=== PATIENT | male | born 1940 | race African-American/Black ===

== ENCOUNTER 2016-03-07 17:03 | Emergency (ER) | payer BC, OTHER ==
[2016-03-07 17:11] VITALS: BP 151/78; PULSE 68; TEMP 98.2; BMI 27.5
[2016-03-07] MEDS ORDERED: KETOROLAC TROMETHAMINE 60 MG/2 ML VIAL ONE (17:46)
[2016-03-07] MEDS ORDERED: KETOROLAC TROMETHAMINE 60 MG/2 ML VIAL IM ONE (17:57)
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
== END 2016-03-07 18:36 | disposition home or self-care (01) ==
LOC: JERFT 17:03
PROC: 3E0233Z Introduction of Anti-inflammatory into Muscle, Percutaneous Approach (ICD-10-PCS; principal; 2016-03-07)
DX: R68.84 Jaw pain (principal); R12 Heartburn; I10 Essential (primary) hypertension; I25.2 Old myocardial infarction; Z87.891 Personal history of nicotine dependence; Z79.82 Long term (current) use of aspirin; Z79.4 Long term (current) use of insulin
CPT/HCPCS: 99281-25

== ENCOUNTER 2016-09-26 00:32 | Emergency (ER) | payer BC, OTHER ==
[2016-09-26 00:46] VITALS: BP 165/90; PULSE 65; TEMP 98.2; BMI 26.4
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
[2016-09-26 03:28] LABS: BASOPHIL 0.8 % (0-2.0); EOSINOPHIL 3.9 % (0-4.5); MCH 29.1 pg (25.7-33.7); MCHC 33.3 g/dl (32.0-35.9); MEAN CELL VOLUME 87.5 fl (80-96); MEAN PLT VOLUME 9.2 fl (7.5-11.1); NEUTROPHILS 43.2 % (42.8-82.8); PLATELET COUNT 187 K/MM3 (134-434); RDW 13.1 % (11.9-15.9); WHITE BLOOD COUNT 6.2 K/mm3 (4.0-10.0)
--- NOTE | 2016-09-26 04:01 | PDOC ---
Attending Attestation - Resident Resident Name: Carlos Mcgraw - ED Attending Attestation I have performed the following: I have examined & evaluated the patient, The case was reviewed & discussed with the resident, I agree w/resident's findings & plan, Exceptions are as noted - Physicial Exam PE: 09/26/16 04:00 *Physical Exam General Appearance: Yes: Appropriately Dressed. No: Apparent Distress, Intoxicated HEENT: positive: EOMI, RACHEL, Normal ENT Inspection, Normal Voice, TMs Normal, Pharynx Normal. negative: Pale Conjunctivae, Photophobia, Scleral Icterus (R), Scleral Icterus (L) Neck: positive: Trachea midline, Normal Thyroid, Supple. negative: Tender, Rigid, Carotid bruit, Stridor, Lymphadenopathy (R), Lymphadenopathy (L), Thyromegaly Respiratory/Chest: positive: Lungs Clear, Normal Breath Sounds. negative: Chest Tender, Respiratory Distress, Accessory Muscle Use, Labored Respiration, RES, Crackles, Rales, Rhonchi, Stridor, Wheezing, Dullness Cardiovascular: positive: Regular Rhythm, Regular Rate, S1, S2. negative: Edema , JVD, Murmur, Bradycardia, Tachycardia Vascular Pulses: Dorsalis-Pedis (R): 2+, Doralis-Pedis (L): 2+ Gastrointestinal/Abdominal: positive: Normal Bowel Sounds, Flat, Soft. negative : Tender, Organomegaly, Pulsatile Mass, Increased Bowel Sounds, Decreased BS, Distended, Guarding, Rebound, Hernia, Hepatomegaly, Spleenomegaly Lymphatic: negative: Adenopathy, Tenderness Musculoskeletal: positive: Normal Inspection. negative: CVA Tenderness, Decreased Range of Motion Extremity: positive: Normal Capillary Refill, Normal Inspection, Normal Range of Motion, Pelvis Stable. negative: Tender, Pedal Edema, Swelling, Erythema Integumentary: positive: Normal Color, Dry, Warm. 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 negative: EOM Palsy, Facial Droop, Sensory Deficit <Attila Saucedo - Last Filed: 09/26/16 04:00> - HPI HPI: The patient is a 75 yo M with a past medical history significant for HTN and GERD who presents with paroxysmal abdominal pain for 4 days. The patient describes the pain as a nonradiating cramping sensation that lasts for a minute or two. The patient also endorses associated abdominal distension. He notes he hasnt been able to pass gas rectally. The patient denies fevers, chills and cough. He denies chest pain, sob, palpitations and lightheadedness. He denies nausea, vomiting and diarrhea. - Medical Decision Making Documentation prepared by Mellissa Hollins, acting as medical transcription supervisor for Attila Saucedo MD/. <Mellissa Hollins - Last Filed: 09/26/16 04:01>
[2016-09-26 04:27] LABS: URINE APPEARANCE CLEAR; URINE BILIRUBIN NEGATIVE (NEGATIVE); URINE BLOOD NEGATIVE (NEGATIVE); URINE COLOR STRAW; URINE GLUCOSE (UA) 3+ (NEGATIVE); URINE KETONE NEGATIVE (NEGATIVE); URINE LEUK ESTERASE NEGATIVE (NEGATIVE); URINE NITRITE NEGATIVE (NEGATIVE); URINE PROTEIN NEGATIVE (NEGATIVE); URINE UROBILINOGEN NEGATIVE mg/dL (0.2-1.0)
[2016-09-26] MEDS ORDERED: POLYETHYLENE GLYCOL 3350 119 GM BTL PO SCH (10:00)
== END 2016-09-26 05:43 | disposition home or self-care (01) ==
LOC: JER 00:32
DX: K59.04 Chronic idiopathic constipation (principal); E11.9 Type 2 diabetes mellitus without complications; K21.9 Gastro-esophageal reflux disease without esophagitis; I10 Essential (primary) hypertension; Z79.82 Long term (current) use of aspirin; Z79.4 Long term (current) use of insulin; Z86.74 Personal history of sudden cardiac arrest; Z98.1 Arthrodesis status
CPT/HCPCS: 36415; 74020-TC; 81003; 85025; 99282-25

== ENCOUNTER 2017-02-07 00:20 | Inpatient (IN) | payer BC, OTHER ==
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
[2017-02-07 01:17] VITALS: BMI 26.4
[2017-02-07] MEDS ORDERED: ALBUTEROL SO4 2.5/IPRATROPIUM 0.5 INH SOL 3 ML VIAL.NEB. NEB ONE ×2 (01:17→01:23)
--- NOTE | 2017-02-07 01:49 | PDOC ---
*Physical Exam - Vital Signs Last Vital Signs Temp Pulse Resp BP Pulse Ox 98.2 F 65 19 160/11 98 02/07/17 00:56 02/07/17 01:40 02/07/17 00:56 02/07/17 00:56 02/07/17 01:40 ED Treatment Course - LABORATORY CBC & Chemistry Diagram: 02/07/17 01:35 02/07/17 01:35 - Medications Given in the ED: ED Medications Discontinued Medications Generic Name Dose Route Start Last Admin Trade Name Freq PRN Reason Stop Dose Admin Albuterol/Ipratropium 1 amp 02/07/17 01:17 02/07/17 01:41 Duoneb - NEB 02/07/17 01:18 1 amp ONCE ONE Administration Medical Decision Making - Medical Decision Making 02/07/17 01:48 I reviewed the case of the mid-level practitioner and was available for consultation while in the emergency department. Dr. Andrea to follow up remainder of care *DC/Admit/Observation/Transfer Diagnosis at time of Disposition: Shortness of breath - Referrals Referrals: Doron Clinton MD [Primary Care Provider] - - Patient Instructions - Post Discharge Activity
[2017-02-07 01:51] LABS: BASO % 0.6 % (0-2.0); EOS # 0.3 # (0-4.5); LYMPH # 1.8 (8-40); MCH 28.3 pg (25.7-33.7); MCHC 32.6 g/dl (32.0-35.9); MEAN PLT VOLUME 8.9 fl (7.5-11.1); MONO # 0.6 # (3.8-10.2); NEUT # 2.6 # (42.8-82.8); NEUT % 48.9 % (42.8-82.8); PLATELET COUNT 222 K/MM3 (134-434); RDW 14.1 % (11.9-15.9); WHITE BLOOD COUNT 5.2 K/mm3 (4.0-10.0)
[2017-02-07 02:26] LABS: ANION GAP 6 (8-16); BILIRUBIN,TOTAL 0.3 mg/dL (0.2-1.0); CALCIUM 8.8 mg/dL (8.5-10.1); CO2 29 mmol/L (21-32); CREATININE 1.8 mg/dL (0.7-1.3); SGOT/AST 22 U/L (15-37); SGPT/ALT 43 U/L (12-78); TOT PROT 6.4 g/dl (6.4-8.2)
[2017-02-07 02:28] LABS: ALK PHOS 104 U/L (45-117)
[2017-02-07 02:29] LABS: GLUCOSE,RANDOM 308 mg/dL (74-106)
[2017-02-07 02:48] LABS: HIV 1 & 2 AB NEGATIVE; HIV 1 AGp24 NEGATIVE; TROPONIN I 0.06 ng/ml (0.00-0.05)
[2017-02-07] MEDS ORDERED: ASPIRIN 325 MG TABLET PO ONE (03:11)
[2017-02-07] MEDS ORDERED: ASPIRIN 325 MG TABLET ONE (03:20)
--- NOTE | 2017-02-07 05:40 | HP ---
CHIEF COMPLAINT: SOB PCP: Dr. Clinton HISTORY OF PRESENT ILLNESS: This is a 76 y/o man with a past medical history of HTN, DM. Who presents to the ED with SOB, decreased exercise tolerance, cough x several days. Patient denies CP, palpitations, lightheadedness, or dizziness. Patient denies fever, chills, GODFREY, N/V/D, dysuria. ER course was notable for: (1) Troponin I- 0.06 (2) EKG- SR with frequent PVCs, RBBB, LVH, T wave abnormality, consider lateral ischemia (3) BNP 1054 Recent Travel: None PAST MEDICAL HISTORY: HTN DM PAST SURGICAL HISTORY: Social History: Smoking: Never Alcohol: None Drugs: None Retired, [employer] Family History: Mother: Cardiac: CM, DM, age 70's Sister: Cardiac: CM, age 50's Allergies No Known Allergies Allergy (Verified 09/26/16 00:45) HOME MEDICATIONS: Home Medications Medication Instructions Recorded Insulin (Novolog 70/30) [Novolog 20 units SQ DAILY 01/17/15 Mix 70/30 Vial] Losartan Potassium 100 mg PO DAILY 10/24/15 Atorvastatin Ca [Lipitor] 10 mg PO HS 02/07/17 Insulin Glargine,Hum.rec.anlog 40 unit SQ HS 02/07/17 [Lantus] REVIEW OF SYSTEMS CONSTITUTIONAL: Absent: fever, chills, diaphoresis, generalized weakness, malaise, loss of appetite, weight change HEENT: Absent: rhinorrhea, nasal congestion, throat pain, throat swelling, difficulty swallowing, mouth swelling, ear pain, eye pain, visual changes CARDIOVASCULAR: Absent: chest pain, syncope, palpitations, irregular heart rate, lightheadedness , peripheral edema RESPIRATORY: cough, shortness of breath, dyspnea with exertion Absent: orthopnea, wheezing, stridor, hemoptysis GASTROINTESTINAL: constipation Absent: abdominal pain, abdominal distension, nausea, vomiting, diarrhea, melena , hematochezia GENITOURINARY: Absent: dysuria, frequency, urgency, hesitancy, hematuria, flank pain, genital pain MUSCULOSKELETAL: Absent: myalgia, arthralgia, joint swelling, back pain, neck pain SKIN: Absent: rash, itching, pallor HEMATOLOGIC/IMMUNOLOGIC: Absent: easy bleeding, easy bruising, lymphadenopathy, frequent infections ENDOCRINE: Absent: unexplained weight gain, unexplained weight loss, heat intolerance, cold intolerance NEUROLOGIC: Absent: headache, focal weakness or paresthesias, dizziness, unsteady gait, seizure, mental status changes, bladder or bowel incontinence PSYCHIATRIC: Absent: anxiety, depression, suicidal or homicidal ideation, hallucinations. PHYSICAL EXAMINATION Vital Signs - 24 hr 02/07/17 02/07/17 00:56 01:40 Temperature 98.2 F Pulse Rate 90 65 Respiratory 19 Rate Blood Pressure 160/11 O2 Sat by Pulse 98 98 Oximetry (%) GENERAL: Awake, alert, and fully oriented, in no acute distress. HEAD: Normal with no signs of trauma. EYES: Pupils equal, round and reactive to light, extraocular movements intact, sclera anicteric, conjunctiva clear. No lid lag. EARS, NOSE, THROAT: Ears normal, nares patent, oropharynx clear without exudates. Dry mucous membranes. NECK: Normal range of motion, supple without lymphadenopathy, JVD, or masses. LUNGS: Breath sounds diminished at bases. No wheezes, and no crackles. No accessory muscle use. HEART: Irregular rate and rhythm, normal S1 and S2 without murmur, rub or gallop. ABDOMEN: Soft, nontender, not distended, normoactive bowel sounds, no guarding, no rebound, no masses. No hepatomegaly or splenomegaly. MUSCULOSKELETAL: Normal range of motion at all joints. No bony deformities or tenderness. No CVA tenderness. UPPER EXTREMITIES: 2+ pulses, warm, well-perfused. No cyanosis. No clubbing. No peripheral edema. LOWER EXTREMITIES: 2+ pulses, warm, well-perfused. No calf tenderness. No peripheral edema. NEUROLOGICAL: Cranial nerves II-XII intact. Normal speech. Gait not observed. PSYCHIATRIC: Cooperative. Good eye contact. Appropriate mood and affect. SKIN: Warm, dry, normal turgor, no rashes or lesions noted, normal capillary refill. Laboratory Results - last 24 hr 02/07/17 02/07/17 02/07/17 01:35 01:35 01:35 WBC 5.2 RBC 4.81 Hgb 13.6 D Hct 41.8 MCV 87.0 MCH 28.3 MCHC 32.6 RDW 14.1 Plt Count 222 MPV 8.9 Neutrophils % 48.9 Lymphocytes % 34.8 Monocytes % 10.7 H Eosinophils % 5.0 H Basophils % 0.6 Sodium 142 Potassium 4.7 Chloride 107 Carbon Dioxide 29 Anion Gap 6 L BUN 23 H Creatinine 1.8 H D Creat Clearance w eGFR 36.77 Random Glucose 308 H* D Calcium 8.8 Total Bilirubin 0.3 D AST 22 ALT 43 D Alkaline Phosphatase 104 Creatine Kinase 485 H Creatine Kinase Index 1.1 CK-MB (CK-2) 5.470 H Troponin I 0.06 H D B-Natriuretic Peptide 1054.96 H Total Protein 6.4 Albumin 3.0 L HIV 1&2 Antibody Screen HIV P24 Antigen 02/07/17 01:35 WBC RBC Hgb Hct MCV MCH MCHC RDW Plt Count MPV Neutrophils % Lymphocytes % Monocytes % Eosinophils % Basophils % Sodium Potassium Chloride Carbon Dioxide Anion Gap BUN Creatinine Creat Clearance w eGFR Random Glucose Calcium Total Bilirubin AST ALT Alkaline Phosphatase Creatine Kinase Creatine Kinase Index CK-MB (CK-2) Troponin I B-Natriuretic Peptide Total Protein Albumin HIV 1&2 Antibody Screen Negative HIV P24 Antigen Negative ASSESSMENT/PLAN: This is a 76 y/o man with a PMHx of: HTN, ?Cardiac Arrest/Syncope(age 22), DM, BPH. Placed in Tele Observation for SOB, Cardiac Arrhythmia. Problem List - Problem (1) Shortness of breath Assessment/Plan: -Concerning for Heart Failure vs Arrhythmia vs PE - Continue cardiac monitoring - Chest Xray- Large heart, unfolded aorta, pleural fluid, Degenerative changes with wedging - BNP- 1054 - O2 - Appreciate Cardiology Consult - Lasix - Monitor CBCD, BMP Code(s): R06.02 - SHORTNESS OF BREATH (2) Elevated troponin Assessment/Plan: - r/o ACS vs Demand Ischemia - Serial Enzymes - Consult Cardiology - EKG reviewed - Continue cardiac monitoring Code(s): R74.8 - ABNORMAL LEVELS OF OTHER SERUM ENZYMES (3) Ventricular trigeminy Assessment/Plan: - Likely secondary to CAD - Cardiac monitoring - EKG- reviewed no other tracing to compare - Appreciate Cardiology Consult - Echo - Stress test - Asa given in ED, will continue - Bedrest - Lipid Profile Code(s): I49.8 - OTHER SPECIFIED CARDIAC ARRHYTHMIAS (4) Uncontrolled diabetes mellitus with hyperglycemia Assessment/Plan: - BGMs - ISS - Hold home meds for tighter glycemic control - HgbA1C in am - Consider Endocrinology consult or f/u in outpatient - Monitor renal function Code(s): E11.65 - TYPE 2 DIABETES MELLITUS WITH HYPERGLYCEMIA Qualifiers: Diabetes mellitus type: type 2 (5) Hypertension Assessment/Plan: - Not Controlled - Losartan given in ED, will hold for now secondary to SYLVIA - Would consider BB for BP control, but in light of Trigeminy will defer to Cardiology - Cardiac monitoring - Monitor renal function Code(s): I10 - ESSENTIAL (PRIMARY) HYPERTENSION (6) BPH (benign prostatic hyperplasia) Assessment/Plan: - No current med - Consider Flomax Code(s): N40.0 - BENIGN PROSTATIC HYPERPLASIA WITHOUT LOWER URINRY TRACT SYMP (7) DVT prophylaxis Assessment/Plan: - OOB - SCDs - Consider ACs if LOS> 48 hrs Code(s): HUP6091 - Visit type - Emergency Visit Emergency Visit: Yes ED Registration Date: 02/07/17 Care time: The patient presented to the Emergency Department on the above date and was hospitalized for further evaluation of their emergent condition. - New Patient This patient is new to me today: Yes Date on this admission: 02/07/17 - Critical Care Critical Care patient: No
[2017-02-07 05:56] LABS: TROPONIN I 0.06 ng/ml (0.00-0.05)
[2017-02-07] MEDS ORDERED: LOSARTAN POTASSIUM 50 MG TABLET (FP) PO ONE (06:23)
[2017-02-07] MEDS ORDERED: LOSARTAN POTASSIUM 25 MG TABLET PO ONE (06:30)
[2017-02-07] MEDS ORDERED: ASPIRIN 81 MG CHEWABLE TABLETS ONE (06:30)
[2017-02-07] MEDS ORDERED: ATORVASTATIN CA 40 MG TABLET (FP) ONE (06:32)
[2017-02-07] MEDS ORDERED: LOSARTAN POTASSIUM 25 MG TABLET ONE (06:32)
[2017-02-07] MEDS ORDERED: INSULIN (NOVOLOG MIX 70/30) 100 UNITS/ML MDV SQ ONE (06:33)
[2017-02-07] MEDS: INSULIN SLIDING SCALE (NOVOLOG) 1 VIAL SQ SCH ×4 (06:47→21:23)
[2017-02-07 07:02] LABS: CHOLESTEROL 96 mg/dL (50-200)
[2017-02-07 10:11] LABS: BASO % 0.6 % (0-2.0); EOS # 0.3 # (0-4.5); EOS % 5.9 % (0-4.5); LYMPH # 1.9 (8-40); MCH 27.9 pg (25.7-33.7); MCHC 31.8 g/dl (32.0-35.9); MEAN CELL VOLUME 87.8 fl (80-96); MEAN PLT VOLUME 9.3 fl (7.5-11.1); MONO # 0.5 # (3.8-10.2); NEUT # 2.2 # (42.8-82.8); NEUT % 44.4 % (42.8-82.8); PLATELET COUNT 203 K/MM3 (134-434); RDW 14.1 % (11.9-15.9)
[2017-02-07 10:34] LABS: ALBUMIN 2.9 g/dl (3.4-5.0); ANION GAP 7 (8-16); BILIRUBIN,TOTAL 0.5 mg/dL (0.2-1.0); CALCIUM 8.1 mg/dL (8.5-10.1); CO2 26 mmol/L (21-32); CREATININE 1.4 mg/dL (0.7-1.3); GLUCOSE,RANDOM 227 mg/dL (74-106); MAGNESIUM 2.1 mg/dL (1.8-2.4); PHOSPHOROUS 3.3 mg/dL (2.5-4.9); SGOT/AST 21 U/L (15-37); SGPT/ALT 40 U/L (12-78)
[2017-02-07 10:38] LABS: ALK PHOS 103 U/L (45-117); CPK 387 IU/L (39-308); TOT PROT 6.1 g/dl (6.4-8.2); TROPONIN I 0.06 ng/ml (0.00-0.05)
[2017-02-07] MEDS ORDERED: INSULIN (NOVOLOG) ASPART 100 UNITS/ML 10ML VIAL ONE (11:20)
[2017-02-07] MEDS ORDERED: INSULIN NPH 100 UNITS/ML *VIAL ONE (11:20)
--- NOTE | 2017-02-07 14:56 | CON.CARD ---
Consult Consult Specialty:: cardiology Reason for Consultation:: shortness of breath - History of Present Illness History of Present Illness: Patient is a 76-year-old black male with past medical history of diabetes, hypertension, cardiac arrest at age 22, low-normal LVEF (2011 MUGA), s/p 10/02 trigeminal neuralgia surgery, tates that he is usually able to walk to his vehicle approximately a block and a half away. Currently he states that he is unable to do so stating that he gets winded approximately a block in his walk. While at rest patient states that he breathes normally and does not feel short of breath. Denies orthopnea, pedal edema, palpitations, lightheadedness, dizziness, weakness, chest pain. He has not tried taking any medication for his symptoms. PCP Dr. Clinton Milk Powder Grinder: None - History Source History Provided By: Patient, Medical Record Limitations to Obtaining History: No Limitations - Past Medical History Cardio/Vascular: Yes: HTN Pulmonary: No: Asthma, COPD Renal/: Yes: BPH Endocrine: Yes: Diabetes Mellitus - Past Surgical History Past Surgical History: Yes: Laminectomy - Alcohol/Substance Use Hx Alcohol Use: No - Smoking History Smoking history: Never smoked Have you smoked in the past 12 months: No Aproximately how many cigarettes per day: 0 If you are a former smoker, when did you quit?: 1963 Home Medications - Allergies Allergies/Adverse Reactions: Allergies Allergy/AdvReac Type Severity Reaction Status Date / Time No Known Allergies Allergy Verified 09/26/16 00:45 - Home Medications Home Medications: Ambulatory Orders Insulin (Novolog 70/30) [Novolog Mix 70/30 Vial] 20 units SQ DAILY 01/17/15 Losartan Potassium 100 mg PO DAILY 10/24/15 Atorvastatin Ca [Lipitor] 10 mg PO HS 02/07/17 Insulin Glargine,Hum.rec.anlog [Lantus] 40 unit SQ HS 02/07/17 Family Disease History - Family Disease History Family Disease History: Diabetes: Father, Heart Disease: Mother, Sister, CA: Brother Review of Systems - Review of Systems Constitutional: reports: No Symptoms Eyes: reports: No Symptoms HENT: reports: No Symptoms Neck: reports: No Symptoms Cardiovascular: reports: No Symptoms Respiratory: reports: SOB on Exertion Gastrointestinal: reports: No Symptoms Genitourinary: reports: No Symptoms Breasts: reports: No Symptoms Reported Musculoskeletal: reports: Muscle Weakness Neurological: reports: No Symptoms Endocrine: reports: No Symptoms Hematology/Lymphatic: reports: No Symptoms Psychiatric: reports: No Symptoms - Risk Factors Known Risk Factors: Yes: Age, Diabetes Mellitus, Gender, Hypercholesterolemia, Race. No: Smoking Vital Signs: Vital Signs Temperature 98.3 F 02/07/17 13:47 Pulse Rate 82 02/07/17 13:47 Respiratory Rate 20 02/07/17 13:47 Blood Pressure 160/80 02/07/17 13:47 O2 Sat by Pulse Oximetry (%) 98 02/07/17 13:47 Constitutional: Yes: Anxious Eyes: Yes: WNL HENT: Yes: WNL Neck: Yes: WNL Respiratory: Yes: Diminished Gastrointestinal: Yes: Soft Renal/: No: Anuria Heart Sounds: Yes: S1, Split S2 Murmur: Yes: Systolic Murmur, Grade 2 Musculoskeletal: Yes: Muscle Weakness Extremities: Yes: WNL Edema: No Peripheral Pulses WNL: Yes Integumentary: Yes: WNL Neurological: Yes: WNL Psychiatric: Yes: WNL - Other Data Labs, Other Data: CBC, BMP 02/07/17 10:00 02/07/17 10:00 Troponin, BNP 02/07/17 02/07/17 02/07/17 01:35 01:35 05:13 Troponin I 0.06 H D 0.06 H B-Natriuretic Peptide 1054.96 H 02/07/17 10:00 Troponin I 0.06 H B-Natriuretic Peptide Troponin, BNP 02/07/17 02/07/17 02/07/17 01:35 01:35 05:13 Troponin I 0.06 H D 0.06 H B-Natriuretic Peptide 1054.96 H 02/07/17 10:00 Troponin I 0.06 H B-Natriuretic Peptide Echo: Report Reviewed (2012: normal LVEF) Imaging - Results Chest X-ray: Image Reviewed (pleural effusion) EKG: Image Reviewed (NSR; bifascicular heart block (RBBB; LAFB).) Problem List - Problems (1) Shortness of breath Assessment/Plan: serial TNI (initially 0.05). BUN/Cr, electrolytes, Is and Os, daily weight. F/u ECHO for LVEF, valve status, wall motion. Telemetry. Stress MIBI when stablle. Code(s): R06.02 - SHORTNESS OF BREATH (2) Uncontrolled diabetes mellitus with hyperglycemia Code(s): E11.65 - TYPE 2 DIABETES MELLITUS WITH HYPERGLYCEMIA Qualifiers: Diabetes mellitus type: type 2 (3) Ventricular trigeminy Code(s): I49.8 - OTHER SPECIFIED CARDIAC ARRHYTHMIAS (4) BPH (benign prostatic hyperplasia) Code(s): N40.0 - BENIGN PROSTATIC HYPERPLASIA WITHOUT LOWER URINRY TRACT SYMP (5) Diabetes Assessment/Plan: start ACEI or ARB (HTN; DM). F/u ECHO. Code(s): E11.9 - TYPE 2 DIABETES MELLITUS WITHOUT COMPLICATIONS (6) Hypertension Code(s): I10 - ESSENTIAL (PRIMARY) HYPERTENSION
--- NOTE | 2017-02-07 16:31 | EKG ---
Test Reason : Blood Pressure : / mmHG Vent. Rate : 089 BPM Atrial Rate : 089 BPM P-R Int : 144 ms QRS Dur : 136 ms QT Int : 430 ms P-R-T Axes : 047 -51 010 degrees QTc Int : 523 ms SINUS RHYTHM WITH FREQUENT PREMATURE VENTRICULAR COMPLEXES POSSIBLE LEFT ATRIAL ENLARGEMENT RIGHT BUNDLE BRANCH BLOCK LEFT ANTERIOR FASCICULAR BLOCK BIFASCICULAR BLOCK LEFT VENTRICULAR HYPERTROPHY T WAVE ABNORMALITY, CONSIDER LATERAL ISCHEMIA ABNORMAL ECG WHEN COMPARED WITH ECG OF 14-JUN-2014 09:29, PREMATURE VENTRICULAR COMPLEXES ARE NOW PRESENT (RBBB AND LEFT ANTERIOR FASCICULAR BLOCK) IS NOW PRESENT Confirmed by GREGORIO ADRIAN MD ([id number]) on 02/07/2017 4:31:00 PM Referred By: Confirmed By:GREGORIO ADRIAN MD
[2017-02-07 16:48] LABS: TROPONIN I 0.05 ng/ml (0.00-0.05)
[2017-02-07] MEDS: LISINOPRIL 5 MG TABLET (FP) PO SCH (17:01)
[2017-02-07] MEDS: ATORVASTATIN CA 10 MG TABLET (FP) PO SCH (21:21)
[2017-02-08] MEDS: INSULIN SLIDING SCALE (NOVOLOG) 1 VIAL SQ SCH ×4 (06:22→20:59)
[2017-02-08] MEDS: ASPIRIN 81 MG CHEWABLE TABLETS PO SCH (10:31)
[2017-02-08] MEDS: LISINOPRIL 5 MG TABLET (FP) PO SCH (10:31)
--- NOTE | 2017-02-08 10:42 | PN ---
Progress Note (short form) - Note Progress Note: Patient seen and examined. Chart reviewed at length. Currently lying supine in bed without new chest discomfort or dyspnea. Labs, EKG, telemetry and senior application security consultant notes reviewed. Medications reviewed. History as previously outlined. Progressive dyspnea associated with some mild wheezing, in the setting of a patient with known cardiac disease (h/o cardiac arrest age 22, mildly decreased EF on MUGA 2011, DM and abnormal EKG) admitted via ER with mild elevation of troponins and CPK MB. Medications Lisinopril (Prinivil) 2.5 mg PO DAILY [facility] Last Admin: 02/07/17 17:01 Dose: 2.5 mg Atorvastatin Calcium (Lipitor -) 10 mg PO HS [facility] Last Admin: 02/07/17 21:21 Dose: 10 mg Insulin Aspart (Novolog Vial Sliding Scale -) 1 vial SQ ACHS [facility] PRN Reason: Protocol Last Admin: 02/08/17 06:22 Dose: Not Given Aspirin (Asa -) 81 mg PO DAILY [facility] Selected Entries 02/08/17 02/08/17 06:52 07:00 Temperature 97.8 F Pulse Rate 89 Respiratory 18 Rate Blood Pressure 139/73 O2 Sat by Pulse 99 Oximetry (%) Oxygen Delivery Room Air Method Laboratory Tests 02/07/17 02/07/17 02/07/17 01:35 10:00 10:00 WBC 5.0 Hgb 13.8 Hct 43.5 Plt Count 203 Sodium 140 Potassium 4.3 Chloride 107 Carbon Dioxide 26 BUN 18 D Creatinine 1.4 H D Random Glucose 227 H D Calcium 8.1 L Phosphorus 3.3 Magnesium 2.1 Total Bilirubin 0.5 D AST 21 ALT 40 Alkaline Phosphatase 103 Creatine Kinase 387 H Creatine Kinase Index 1.0 CK-MB (CK-2) 4.241 H Troponin I 0.06 H Total Protein 6.1 L Albumin 2.9 L HIV 1&2 Antibody Screen Negative HIV P24 Antigen Negative 02/07/17 15:45 WBC Hgb Hct Plt Count Sodium Potassium Chloride Carbon Dioxide BUN Creatinine Random Glucose Calcium Phosphorus Magnesium Total Bilirubin AST ALT Alkaline Phosphatase Creatine Kinase 304 Creatine Kinase Index 1.0 CK-MB (CK-2) 3.338 Troponin I 0.05 Total Protein Albumin HIV 1&2 Antibody Screen HIV P24 Antigen Chest Clear Cor Irregular Ectopics Telemetry Sinus rhythm with RBBB and PVCs Abd Soft non-tender Ext No edema No phlebitis Neuro No new focal deficit Assessment and Plan Dyspnea Rule out cardiac component Elevated BNP noted in setting of mild increase serum Cr Possible increased cephalization pattern on CXR Consider trial of low dose iv furosemide ASHD Risk factors as noted Minimally elevated troponin of note Cardiology note reviewed H/O low EF DM On long acting and short acting Rx at home Follow BGMs here Arrythmia PVCs Monitor in setting of possible ischemic heart disease Hypoalbuminemia Multifactorial related to acute/chronic disease (?nephrotic from DM?) as well as nutritional factors Trigeminal neuralgia surgery Summer 2016 H/O Cervical spine fusion surgery Anterior approach BPH CRI Creatinine 1.4 Monitor Constipation Continue current Rx Monitor sugars and adjust insulin dosing Check ECHO Cardiologic follow-up
[2017-02-08] MEDS ORDERED: FUROSEMIDE 40 MG/4 ML INJECTABLE VIAL IVPUSH ONE (11:32)
--- NOTE | 2017-02-08 11:51 | PN ---
Progress Note, Physician Chief Complaint: Pt A&Ox3; no chest pain or dyspnea. History of Present Illness: Patient is a 76-year-old black male with past medical history of diabetes, hypertension, cardiac arrest at age 22, low-normal LVEF (2011 MUGA), s/p 10/02 trigeminal neuralgia surgery, states that he is usually able to walk to his vehicle approximately a block and a half away. Currently he states that he is unable to do so; he gets winded approximately a block into his walk. While at rest patient states that he breathes normally and does not feel short of breath. Denies orthopnea, pedal edema, palpitations, lightheadedness, dizziness , weakness, chest pain. He has not tried taking any medications for his symptoms. PCP Dr. Clinton Activity Assistant: None - Current Medication List Current Medications: Active Medications Aspirin (Asa -) 81 mg PO DAILY [facility] Last Admin: 02/08/17 10:31 Dose: 81 mg Atorvastatin Calcium (Lipitor -) 10 mg PO HS [facility] Last Admin: 02/07/17 21:21 Dose: 10 mg Insulin Aspart (Novolog Vial Sliding Scale -) 1 vial SQ ACHS [facility] PRN Reason: Protocol Last Admin: 02/08/17 06:22 Dose: Not Given Losartan Potassium (Cozaar -) 100 mg PO DAILY [facility] - Objective Vital Signs: Vital Signs Temperature 97.8 F 02/08/17 07:00 Pulse Rate 89 02/08/17 07:00 Respiratory Rate 18 02/08/17 07:00 Blood Pressure 139/73 02/08/17 07:00 O2 Sat by Pulse Oximetry (%) 99 02/08/17 06:52 Labs: CBC, BMP 02/07/17 10:00 02/07/17 10:00
[2017-02-08] MEDS ORDERED: INSULIN (NOVOLOG) ASPART 100 UNITS/ML 10ML VIAL ONE (11:59)
[2017-02-08 13:55] LABS: URINE APPEARANCE CLEAR; URINE BILIRUBIN NEGATIVE (NEGATIVE); URINE BLOOD NEGATIVE (NEGATIVE); URINE COLOR LTYELLOW; URINE GLUCOSE (UA) 3+ (NEGATIVE); URINE KETONE TRACE (NEGATIVE); URINE LEUK ESTERASE NEGATIVE (NEGATIVE); URINE NITRITE NEGATIVE (NEGATIVE); URINE PROTEIN NEGATIVE (NEGATIVE); URINE UROBILINOGEN NEGATIVE mg/dL (0.2-1.0)
[2017-02-08 15:58] LABS: THYROID STIMULATING HORMONE 0.93 uIU/ml (0.358-3.74)
[2017-02-08 19:53] LABS: URINE LEUK ESTERASE Negative (NEGATIVE)
[2017-02-08 20:20] LABS: TROPONIN I 0.03 ng/ml (0.00-0.05)
[2017-02-08] MEDS: ATORVASTATIN CA 10 MG TABLET (FP) PO SCH (20:59)
[2017-02-08] MEDS: METOPROLOL TARTRATE 25 MG TABLET (FP) PO SCH (21:00)
[2017-02-09] MEDS: INSULIN SLIDING SCALE (NOVOLOG) 1 VIAL SQ SCH ×4 (06:46→21:32)
[2017-02-09 08:18] LABS: BASO % 0.6 % (0-2.0); EOS # 0.2 # (0-4.5); EOS % 3.4 % (0-4.5); LYMPH # 2.3 (8-40); MCH 27.9 pg (25.7-33.7); MEAN PLT VOLUME 9.2 fl (7.5-11.1); MONO # 0.6 # (3.8-10.2); NEUT # 2.7 # (42.8-82.8); NEUT % 47.2 % (42.8-82.8); PLATELET COUNT 218 K/MM3 (134-434); RDW 13.8 % (11.9-15.9); WHITE BLOOD COUNT 5.8 K/mm3 (4.0-10.0)
[2017-02-09 08:49] LABS: ALBUMIN 2.8 g/dl (3.4-5.0); ANION GAP 6 (8-16); CALCIUM 8.2 mg/dL (8.5-10.1); CO2 28 mmol/L (21-32); MAGNESIUM 2.1 mg/dL (1.8-2.4)
[2017-02-09 08:55] LABS: ALK PHOS 104 U/L (45-117); BILIRUBIN,TOTAL 0.5 mg/dL (0.2-1.0); CPK 167 IU/L (39-308); CREATININE 1.4 mg/dL (0.7-1.3); SGOT/AST 12 U/L (15-37); SGPT/ALT 29 U/L (12-78); TROPONIN I 0.03 ng/ml (0.00-0.05)
[2017-02-09 09:30] LABS: GLUCOSE,RANDOM 397 mg/dL (74-106)
[2017-02-09] MEDS: LOSARTAN POTASSIUM 50 MG TABLET (FP) PO SCH (10:06)
[2017-02-09] MEDS: METOPROLOL TARTRATE 25 MG TABLET (FP) PO SCH ×2 (10:07→21:31)
[2017-02-09] MEDS: ASPIRIN 81 MG CHEWABLE TABLETS PO SCH (10:07)
[2017-02-09] MEDS ORDERED: INSULIN DETEMIR 100 UNITS/ML MDV SQ ONE (10:30)
--- NOTE | 2017-02-09 10:36 | PN ---
Progress Note (short form) - Note Progress Note: Patient seen and examined. Chart reviewed. Case discussed with Dr Berry . Currently lying supine in bed without new chest discomfort or dyspnea. Labs, EKG, telemetry and it architecture consultant notes reviewed. Medications reviewed. History as previously outlined. Progressive dyspnea associated with some mild wheezing, in the setting of a patient with known cardiac disease (h/o cardiac arrest age 22, mildly decreased EF on MUGA 2011, DM and abnormal EKG) admitted via ER with mild elevation of troponins and CPK MB. Had good diuresis from one dose of iv furosemide given yesterday. Claims to feel less congested at this time. Selected Entries 02/09/17 07:14 Temperature 98.5 F Pulse Rate 74 Respiratory 20 Rate Blood Pressure 121/75 Laboratory Tests 02/08/17 02/09/17 02/09/17 13:30 05:35 05:35 WBC 5.8 Hgb 14.4 Hct 45.1 Plt Count 218 Sodium 137 Potassium 4.4 Chloride 103 Carbon Dioxide 28 BUN 24 H D Creatinine 1.4 H Random Glucose 397 H* D Calcium 8.2 L Magnesium 2.1 Total Bilirubin 0.5 AST 12 L D ALT 29 D Alkaline Phosphatase 104 Creatine Kinase Index 1.4 CK-MB (CK-2) 2.368 Troponin I 0.03 Total Protein 6.0 L Albumin 2.8 L Urine Color Ltyellow Urine Appearance Clear Urine pH 7.0 Ur Specific [place] 1.017 Urine Protein Negative Urine Glucose (UA) 3+ H Urine Ketones Trace H Urine Blood Negative Urine Nitrite Negative Urine Bilirubin Negative Urine Urobilinogen Negative Ur Leukocyte Esterase Negative Chest Clear Cor Irregular Ectopics Telemetry Sinus rhythm with RBBB and PVCs Runs of wide-complex tachycardia possibly related to RBBB (read by computer as NSVT) Abd Soft non-tender Ext No edema No phlebitis Neuro No new focal deficit Assessment and Plan Dyspnea Rule out cardiac component Elevated BNP noted in setting of mild increase serum Cr Possible increased cephalization pattern on CXR Trial of low dose iv furosemide given yesterday appears to have helped. ASHD Risk factors as noted Minimally elevated troponin of note Cardiology note reviewed H/O low EF Tests pending DM On long acting and short acting Rx at home Follow BGMs here Will restart Levemir in decreased dose Arrhythmia PVCs Monitor in setting of possible ischemic heart disease As above, readings of NSVT may be a sinus tachycardia with an underlying Bundle Branch Block Hypoalbuminemia Multifactorial related to acute/chronic disease as well as nutritional factors UA reviewed w/o proteinuria Trigeminal neuralgia surgery Summer 2016 H/O Cervical spine fusion surgery Anterior approach BPH CRI Creatinine 1.4 Monitor No chnage after furosemide dose Constipation Continue current Rx Monitor sugars and adjust insulin dosing Check ECHO Cardiologic follow-up
[2017-02-09] MEDS ORDERED: INSULIN (NOVOLOG) ASPART 100 UNITS/ML 10ML VIAL ONE (10:50)
--- NOTE | 2017-02-09 15:20 | EKG ---
Test Reason : Blood Pressure : / mmHG Vent. Rate : 070 BPM Atrial Rate : 070 BPM P-R Int : 154 ms QRS Dur : 140 ms QT Int : 456 ms P-R-T Axes : 045 -57 -22 degrees QTc Int : 492 ms SINUS RHYTHM WITH FREQUENT PREMATURE VENTRICULAR COMPLEXES POSSIBLE LEFT ATRIAL ENLARGEMENT RIGHT BUNDLE BRANCH BLOCK LEFT ANTERIOR FASCICULAR BLOCK BIFASCICULAR BLOCK LEFT VENTRICULAR HYPERTROPHY T WAVE ABNORMALITY, CONSIDER LATERAL ISCHEMIA ABNORMAL ECG WHEN COMPARED WITH ECG OF 08-FEB-2017 19:25, NO SIGNIFICANT CHANGE WAS FOUND Confirmed by MARIA EUGENIA ALEXANDRA MD ([id number]) on 02/09/2017 3:20:18 PM Referred By: CHAD CRONIN Confirmed By:MARIA EUGENIA ALEXANDRA MD
--- NOTE | 2017-02-09 15:26 | EKG ---
Test Reason : Blood Pressure : / mmHG Vent. Rate : 088 BPM Atrial Rate : 088 BPM P-R Int : 142 ms QRS Dur : 136 ms QT Int : 432 ms P-R-T Axes : 053 -55 015 degrees QTc Int : 522 ms SINUS RHYTHM WITH MARKED SINUS ARRHYTHMIA WITH OCCASIONAL PREMATURE VENTRICULAR COMPLEXES RIGHT BUNDLE BRANCH BLOCK LEFT ANTERIOR FASCICULAR BLOCK BIFASCICULAR BLOCK VOLTAGE CRITERIA FOR LEFT VENTRICULAR HYPERTROPHY T WAVE ABNORMALITY, CONSIDER LATERAL ISCHEMIA ABNORMAL ECG WHEN COMPARED WITH ECG OF 08-FEB-2017 19:24, NO SIGNIFICANT CHANGE WAS FOUND Confirmed by GREGORIO ADRIAN MD ([id number]) on 02/09/2017 3:26:17 PM Referred By: Confirmed By:GREGORIO ADRIAN MD
[2017-02-09] MEDS ORDERED: PNEUMOC 13-VAL CONJ-DIP CRM/PF 0.5 ML DISP.SYRIN IM ONE (16:45)
[2017-02-09] MEDS ORDERED: INSULIN DETEMIR 100 UNITS/ML MDV SQ SCH ×5 (17:30→22:00)
[2017-02-09] MEDS ORDERED: INSULIN (NOVOLOG) ASPART 100 UNITS/ML 10ML VIAL SQ ONE (17:30)
[2017-02-09] MEDS: ATORVASTATIN CA 10 MG TABLET (FP) PO SCH (21:31)
[2017-02-09] MEDS: INSULIN DETEMIR 100 UNITS/ML MDV SQ SCH (22:06)
[2017-02-10] MEDS: INSULIN SLIDING SCALE (NOVOLOG) 1 VIAL SQ SCH ×3 (06:08→17:27)
[2017-02-10] MEDS ORDERED: INSULIN DETEMIR 100 UNITS/ML MDV SQ SCH (07:00)
[2017-02-10 08:14] LABS: ANION GAP 8 (8-16); CALCIUM 8.9 mg/dL (8.5-10.1); CO2 27 mmol/L (21-32); CREATININE 1.4 mg/dL (0.7-1.3); GLUCOSE,RANDOM 289 mg/dL (74-106)
[2017-02-10] MEDS: ASPIRIN 81 MG CHEWABLE TABLETS PO SCH (13:21)
[2017-02-10] MEDS: LOSARTAN POTASSIUM 50 MG TABLET (FP) PO SCH (13:22)
[2017-02-10] MEDS: METOPROLOL TARTRATE 25 MG TABLET (FP) PO SCH (13:22)
[2017-02-10 15:28] VITALS: BP 139/84; PULSE 72; TEMP 97.6
--- NOTE | 2017-02-10 15:52 | PN ---
Progress Note, Physician Chief Complaint: Mr Woods says he feels fine today. Chest pain and shortness of breath has resolved. No n/v. - Current Medication List Current Medications: Active Medications Aspirin (Asa -) 81 mg PO DAILY [facility] Last Admin: 02/10/17 13:21 Dose: 81 mg Atorvastatin Calcium (Lipitor -) 10 mg PO HS [facility] Last Admin: 02/09/17 21:31 Dose: 10 mg Insulin Aspart (Novolog Vial Sliding Scale -) 1 vial SQ ACHS [facility] PRN Reason: Protocol Last Admin: 02/10/17 13:22 Dose: Not Given Insulin Detemir (Levemir Vial) 10 units SQ BIDAC [facility] Stop: 02/10/17 16:31 Last Admin: 02/10/17 06:07 Dose: 10 units Insulin Detemir (Levemir Vial) 25 units SQ BID [facility] Last Admin: 02/09/17 22:06 Dose: Not Given Losartan Potassium (Cozaar -) 100 mg PO DAILY [facility] Last Admin: 02/10/17 13:22 Dose: 100 mg Metoprolol Tartrate (Lopressor -) 25 mg PO BID [facility] Last Admin: 02/10/17 13:22 Dose: 25 mg - Objective Vital Signs: Vital Signs Temperature 36.4 C 02/10/17 14:27 Pulse Rate 72 02/10/17 14:27 Respiratory Rate 16 02/10/17 14:27 Blood Pressure 139/84 02/10/17 14:27 O2 Sat by Pulse Oximetry (%) 98 02/08/17 15:00 Constitutional: Yes: Well Nourished, No Distress, Calm Cardiovascular: Yes: Regular Rate and Rhythm. No: Gallop, Murmur, Rub Respiratory: Yes: Regular, CTA Bilaterally. No: Rales, Rhonchi, Wheezes Gastrointestinal: Yes: Normal Bowel Sounds, Soft. No: Distention, Tenderness Extremities: Yes: WNL Edema: No Labs: CBC, BMP 02/09/17 05:35 02/10/17 05:35 Problem List - Problems (1) NSTEMI (non-ST elevated myocardial infarction) Assessment/Plan: -case d/w cardiology and stress test reviewed -patient with significant change -cardiology recommending cardiac cath -discussed with patient, wants to discuss with cardiology before deciding -continue current medications Code(s): I21.4 - NON-ST ELEVATION (NSTEMI) MYOCARDIAL INFARCTION (2) CHF (congestive heart failure) Assessment/Plan: -improved with dose of lasix -monitor Code(s): I50.9 - HEART FAILURE, UNSPECIFIED Qualifiers: Congestive heart failure type: unspecified congestive heart failure type Congestive heart failure chronicity: acute Qualified Code(s): I50.9 - Heart failure, unspecified (3) Uncontrolled diabetes mellitus with hyperglycemia Assessment/Plan: -continue levemir 25 units bid -monitor SSI need -adjust as necessary Code(s): E11.65 - TYPE 2 DIABETES MELLITUS WITH HYPERGLYCEMIA Qualifiers: Diabetes mellitus type: type 2 (4) Hypertension Assessment/Plan: -fair control -continue cozaar and lopressor -monitor for adjustment Code(s): I10 - ESSENTIAL (PRIMARY) HYPERTENSION Assessment/Plan Dispo -possible transfer for cardiac cath tomorrow
[2017-02-10] MEDS: INSULIN DETEMIR 100 UNITS/ML MDV SQ SCH (17:26)
--- NOTE | 2017-02-11 17:40 | DS ---
Physical Examination Vital Signs: Vital Signs Temperature 36.4 C 02/10/17 14:27 Pulse Rate 72 02/10/17 14:27 Respiratory Rate 16 02/10/17 14:27 Blood Pressure 139/84 02/10/17 14:27 O2 Sat by Pulse Oximetry (%) 98 02/08/17 15:00 Labs: CBC, BMP 02/09/17 05:35 02/10/17 05:35 Discharge Summary Reason For Visit: VENTRICULAR TRIGEMINY,CONGESTIVE HEART FAILURE Condition: Stable - Instructions Referrals: Doron Clinton MD [Primary Care Provider] - Disposition: TRANSFER ACUTE CARE/OTHER HOSP - Home Medications Comprehensive Discharge Medication List: Ambulatory Orders Insulin (Novolog 70/30) [Novolog Mix 70/30 Vial] 20 units SQ DAILY 01/17/15 Losartan Potassium 100 mg PO DAILY 10/24/15 Atorvastatin Ca [Lipitor] 10 mg PO HS 02/07/17 Insulin Glargine,Hum.rec.anlog [Lantus] 40 unit SQ HS 02/07/17
--- NOTE | 2017-02-14 11:22 | EKG ---
Test Reason : Blood Pressure : / mmHG Vent. Rate : 084 BPM Atrial Rate : 084 BPM P-R Int : 148 ms QRS Dur : 136 ms QT Int : 416 ms P-R-T Axes : 050 -56 007 degrees QTc Int : 491 ms SINUS RHYTHM WITH MARKED SINUS ARRHYTHMIA WITH OCCASIONAL PREMATURE VENTRICULAR COMPLEXES RIGHT BUNDLE BRANCH BLOCK LEFT ANTERIOR FASCICULAR BLOCK BIFASCICULAR BLOCK VOLTAGE CRITERIA FOR LEFT VENTRICULAR HYPERTROPHY T WAVE ABNORMALITY, CONSIDER LATERAL ISCHEMIA ABNORMAL ECG WHEN COMPARED WITH ECG OF 07-FEB-2017 01:36, NO SIGNIFICANT CHANGE WAS FOUND Confirmed by MINNA BRYANT MD ([id number]) on 02/14/2017 11:22:01 AM Referred By: Confirmed By:MINNA BRYANT MD
== END 2017-02-10 19:34 | disposition short-term general hospital (02) | DRG 310 ==
LOC: JER 00:20 → JERBED 05:47 → J4S 14:44 → OBSVTOIN 02-10 15:09
PROVIDERS: ADMIT Internal Medicine; ATTEND Internal Medicine
DX: I49.8 Other specified cardiac arrhythmias (principal); I11.0 Hypertensive heart disease with heart failure; I45.10 Unspecified right bundle-branch block; I50.9 Heart failure, unspecified; E11.65 Type 2 diabetes mellitus with hyperglycemia; Z86.74 Personal history of sudden cardiac arrest; Z79.4 Long term (current) use of insulin
CPT/HCPCS: 36415; 71020-TC; 78452-TC; 80048; 80053; 80061; 81003; 82550; 82553; 83036; 83721; 83735; 83880; 84100; 84443; 84484; 85025; 87389; 90670; 93005; 93010; 93017; 93306-TC; 99285-25; A9502; G0378

== ENCOUNTER 2018-03-02 01:53 | Emergency (ER) | payer BC, OTHER ==
--- NOTE | 2018-03-02 02:21 | PDOC ---
Attending Attestation - Resident Resident Name: Mirna Arteaga - ED Attending Attestation I have performed the following: I have examined & evaluated the patient, The case was reviewed & discussed with the resident, I agree w/resident's findings & plan, Exceptions are as noted - HPI HPI: 03/02/18 02:27 The patient is a 77 year old male with a PMH of IDDM, HTN, and CAD presenting with itchiness for the past two months. Patient states he feels itchy in his groin, genitals, and rectal area. Patient has applied Nystatin cream to the area before with no relief. Denies similar symptoms in the past. The patient denies any fever, N/V/D, penile discharge, or urinary symptoms Allergies: NKDA Social Hx: No reported alcohol, drug or cigarette use. PCP: Dr. Clinton - Physicial Exam PE: 03/02/18 02:31 ADULT EXAM GENERAL: Awake, in no acute distress LUNGS: Breath sounds equal, clear to auscultation bilaterally. No wheezes, and no crackles. Normal work of breathing. HEART: Regular rate and rhythm, normal S1 and S2, no murmurs, rubs or gallops ABDOMEN: Soft, nontender, normoactive bowel sounds. No guarding, no rebound. No masses. Non-distended. GENITOURINARY: (+) Dry skin; hidrosis. EXTREMITIES: Normal range of motion, no edema. NEUROLOGICAL: Alert SKIN: Warm, Dry, normal turgor, no rashes or lesions noted. <Misty Dominguez - Last Filed: 03/02/18 02:30> - Medical Decision Making 03/02/18 03:41 77-year-old male with pruritus to the inguinal region. There is a renal insufficiency which is close to baseline. There is no obvious rash on exam. Impression nonspecific pruritus. Chronic renal insufficiency. Plan is to follow up with primary care physician <Vikki Vaz - Last Filed: 03/02/18 03:42>
[2018-03-02 02:26] VITALS: BP 130/86; PULSE 61; TEMP 98.1; BMI 29.6
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
[2018-03-02 03:22] LABS: ALBUMIN 3.2 g/dl (3.4-5.0); ALK PHOS 112 U/L (45-117); ANION GAP 7 MMOL/L (8-16); BILIRUBIN,TOTAL 0.4 mg/dL (0.2-1); BLOOD UREA NITROGEN 25 mg/dL (7-18); CALCIUM 8.9 mg/dL (8.5-10.1); CHLORIDE 107 mmol/L (98-107); CO2 28 mmol/L (21-32); CREATININE 1.8 mg/dL (0.55-1.3); GLUCOSE,RANDOM 145 mg/dL (74-106); SGOT/AST 27 U/L (15-37); SGPT/ALT 35 U/L (13-61); SODIUM 143 mmol/L (136-145); TOT PROT 6.8 g/dl (6.4-8.2)
== END 2018-03-02 04:00 | disposition home or self-care (01) ==
LOC: JER 01:53
DX: B35.6 Tinea cruris (principal); I25.10 Atherosclerotic heart disease of native coronary artery without angina pectoris; I13.10 Hypertensive heart and chronic kidney disease without heart failure, with stage 1 through stage 4 chronic kidney disease, or unspecified chronic kidney disease; N18.9 Chronic kidney disease, unspecified; Z95.5 Presence of coronary angioplasty implant and graft; I25.2 Old myocardial infarction; E78.00 Pure hypercholesterolemia, unspecified; E11.9 Type 2 diabetes mellitus without complications; Z79.4 Long term (current) use of insulin
CPT/HCPCS: 36415; 80053; 99281-25

== ENCOUNTER 2018-03-30 15:03 | Emergency (ER) | payer BC, OTHER ==
[2018-03-30 15:11] VITALS: BMI 27.2
--- NOTE | 2018-03-30 15:12 | PDOC ---
Rapid Medical Evaluation Time Seen by Provider: 03/30/18 15:07 Medical Evaluation: Allergies Allergy/AdvReac Type Severity Reaction Status Date / Time No Known Allergies Allergy Verified 03/30/18 15:07 03/30/18 15:08 Pt presents to the ED after falling last night around 1:30am. Pt is on blood thinners. Pt complaining of aching to his head. Brain surgery 2 years ago for trigeminal neuralgia. Exam: ambulatory, no gross neuro deficits Orders: CT head, labs, urine Pt to proceed to the ED for further evaluation Discharge Disposition - Diagnosis Headache - Referrals - Patient Instructions - Post Discharge Activity
[2018-03-30 15:48] LABS: BASO % 1.1 % (0-2.0); EOS % 4.3 % (0-4.5); HEMATOCRIT 44.1 % (35.4-49); HEMOGLOBIN 15.3 GM/dL (11.7-16.9); LYMPH % 29.5 % (8-40); MCH 30.7 pg (25.7-33.7); MCHC 34.7 g/dl (32.0-35.9); MEAN CELL VOLUME 88.3 fl (80-96); MEAN PLT VOLUME 9.2 fl (7.5-11.1); MONO % 9.9 % (3.8-10.2); NEUT % 55.2 % (42.8-82.8); PLATELET COUNT 267 K/MM3 (134-434); RDW 14.1 % (11.9-15.9); WHITE BLOOD COUNT 5.5 K/mm3 (4.0-10.0)
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
[2018-03-30 16:03] LABS: INR 1.21 (0.83-1.09); PROTHROMBIN TIME (PATIENT) 14.3 SEC (9.7-13.0)
--- NOTE | 2018-03-30 16:40 | PDOC ---
Attending Attestation - HPI HPI: 03/30/18 16:41 The patient is a year old female, with a significant past medical history of IDDM, HTN, CAD with [place] one year ago s/p stenting x2 (on antigoagulants), who presents to the emergency department with a posterior headache today after a mechanical fall with reported head injury and no LOC yesterday while at home. He denies any other complaints. He denies taking OTC medications for his headache. The patient denies chest pain, shortness of breath, and dizziness. The patient denies fever, chills, nausea, vomit, diarrhea and constipation. The patient denies dysuria, frequency, urgency and hematuria. Allergies: NKDA - Physicial Exam PE: 03/30/18 16:41 GENERAL: Well-appearing, well-nourished. No apparent distress. HEENT: Normocephalic, atraumatic. PERRL, EOM intact. CARDIOVASCULAR: Normal S1, S2. Regular rate and rhythm. PULMONARY: Clear to auscultation bilaterally. ABDOMEN: Soft, non-distended, non-tender. EXTREMITIES: Normal ROM in all four extremities. No gross deformities. SKIN: Warm, dry. No rash NEUROLOGICAL: No focal neurological deficits. - Medical Decision Making 03/30/18 16:42 Documentation prepared by Mariely Tan, acting as medical certification specialist for Mayte Lazo MD <Mariely Tan - Last Filed: 03/30/18 16:43> - Resident Resident Name: Chris Santos - ED Attending Attestation I have performed the following: I have examined & evaluated the patient, The case was reviewed & discussed with the resident, I agree w/resident's findings & plan, Exceptions are as noted - Medical Decision Making 03/30/18 17:02 this 77 yo male is in no acute distress. He fell last night on the stairs , denies any LOC. He had a posterior headache and his (who works here) told him to go get "checked out" He does take eliquis. he didn't take any OTC pain ,meds prior to arrival 03/30/18 17:10 ct scan of brain : old craniotomy, no acute intracranial pathology,no bleed, no infarct,no mass,no shift no focal neuro deficits -he denies any current chest pain,dizziness,shortness of breath,abdominal pain <Mayte Lazo - Last Filed: 03/30/18 17:11>
[2018-03-30 17:23] VITALS: BP 158/96; PULSE 63; TEMP 98.1
[2018-03-30 17:23] LABS: URINE APPEARANCE CLEAR; URINE BILIRUBIN NEGATIVE (<2.0 mg/dL); URINE COLOR LTYELLOW; URINE GLUCOSE (UA) NEGATIVE (NEGATIVE); URINE KETONE NEGATIVE (NEGATIVE); URINE LEUK ESTERASE NEGATIVE (NEGATIVE); URINE NITRITE NEGATIVE (NEGATIVE); URINE PROTEIN NEGATIVE (NEGATIVE); URINE UROBILINOGEN NEGATIVE mg/dL (0.2-1.0)
== END 2018-03-30 17:27 | disposition home or self-care (01) ==
LOC: JER 15:03
DX: S09.8XXA Other specified injuries of head, initial encounter (principal); R51 Headache; W10.8XXA Fall (on) (from) other stairs and steps, initial encounter; Y93.89 Activity, other specified; Y92.038 Other place in apartment as the place of occurrence of the external cause; Y99.8 Other external cause status; I25.10 Atherosclerotic heart disease of native coronary artery without angina pectoris; I10 Essential (primary) hypertension; Z95.5 Presence of coronary angioplasty implant and graft; I25.2 Old myocardial infarction; Z79.01 Long term (current) use of anticoagulants; E11.9 Type 2 diabetes mellitus without complications; Z79.4 Long term (current) use of insulin; Z86.74 Personal history of sudden cardiac arrest; Z86.69 Personal history of other diseases of the nervous system and sense organs; Z98.890 Other specified postprocedural states
CPT/HCPCS: 36415; 70450-TC; 81003; 82962; 85025; 85610; 87086; 99283-25

== ENCOUNTER 2018-08-28 14:19 | Inpatient (IN) | payer BC, OTHER ==
[2018-08-28 14:32] VITALS: BMI 27.2
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
--- NOTE | 2018-08-28 16:12 | EKG ---
Test Reason : Blood Pressure : / mmHG Vent. Rate : 105 BPM Atrial Rate : 100 BPM P-R Int : 000 ms QRS Dur : 148 ms QT Int : 422 ms P-R-T Axes : 000 -55 022 degrees QTc Int : 557 ms POOR DATA QUALITY, INTERPRETATION MAY BE ADVERSELY AFFECTED ATRIAL TACHYCARDIA WITH 3:1 A-V CONDUCTION RIGHT BUNDLE BRANCH BLOCK LEFT ANTERIOR FASCICULAR BLOCK BIFASCICULAR BLOCK MINIMAL VOLTAGE CRITERIA FOR LVH, MAY BE NORMAL VARIANT CANNOT RULE OUT INFERIOR INFARCT (MASKED BY FASCICULAR BLOCK?) , AGE UNDETERMINED ABNORMAL ECG WHEN COMPARED WITH ECG OF 09-FEB-2017 09:12, SIGNIFICANT CHANGES HAVE OCCURRED Confirmed by SOBIA PUCKETT, LIONEL ([id number]) on 08/28/2018 4:12:06 PM Referred By: Confirmed By:LIONEL RAMSAY MD
[2018-08-28 16:16] LABS: BASO % 0.8 % (0-2.0); EOS % 3.4 % (0-4.5); HEMATOCRIT 46.9 % (35.4-49); HEMOGLOBIN 15.4 GM/dL (11.7-16.9); LYMPH % 24.2 % (8-40); MCH 29.3 pg (25.7-33.7); MCHC 32.9 g/dl (32.0-35.9); MEAN CELL VOLUME 89.2 fl (80-96); MEAN PLT VOLUME 8.4 fl (7.5-11.1); MONO % 8.4 % (3.8-10.2); NEUT % 63.2 % (42.8-82.8); PLATELET COUNT 245 K/MM3 (134-434); RBC 5.26 M/mm3 (4.00-5.60); WHITE BLOOD COUNT 6.6 K/mm3 (4.0-10.0)
[2018-08-28 16:27] LABS: EPI CELLS 0.2 /HPF (0-5/HPF); HYALINE CASTS 3 /lpf (0-8); URINE APPEARANCE CLEAR; URINE BACTERIA 1.2 /hpf (NEGATIVE); URINE BILIRUBIN NEGATIVE (NEGATIVE); URINE COLOR YELLOW; URINE GLUCOSE (UA) NEGATIVE (NEGATIVE); URINE KETONE NEGATIVE (NEGATIVE); URINE LEUK ESTERASE NEGATIVE (NEGATIVE); URINE NITRITE NEGATIVE (NEGATIVE); URINE PROTEIN 2+ (NEGATIVE); URINE RBC 1 /hpf (0-4); URINE UROBILINOGEN 0.2 mg/dL (0.2-1.0); URINE WBC 1 /hpf (0-5)
[2018-08-28] MEDS ORDERED: FUROSEMIDE 40 MG/4 ML INJECTABLE VIAL IVPUSH ONE (16:31)
[2018-08-28 16:41] LABS: INR 1.37 (0.83-1.09); PROTHROMBIN TIME (PATIENT) 16.2 SEC (9.7-13.0)
[2018-08-28 16:49] LABS: ALBUMIN 3.2 g/dl (3.4-5.0); BILIRUBIN,TOTAL 0.8 mg/dL (0.2-1); BLOOD UREA NITROGEN 21.8 mg/dL (7-18); CREATININE 1.6 mg/dL (0.55-1.3); MAGNESIUM 2.2 mg/dL (1.8-2.4); POTASSIUM 4.5 mmol/L (3.5-5.1); TOT PROT 6.9 g/dl (6.4-8.2)
--- NOTE | 2018-08-28 16:58 | PDOC ---
Documentation entered by Maria Isabel Delacruz SCRIBE, acting as scribe for Kyle Franks MD. Kyle Franks MD: This documentation has been prepared by the Nubia thapa Brenda, SCRIBE, under my direction and personally reviewed by me in its entirety. I confirm that the documentation accurately reflects all work, treatment, procedures, and medical decision making performed by me. Attending Attestation - Resident Resident Name: Cirilo Garcia - ED Attending Attestation I have performed the following: I have examined & evaluated the patient, The case was reviewed & discussed with the resident, I agree w/resident's findings & plan, Exceptions are as noted - HPI HPI: 08/28/18 15:44 77y M hx of CADs/p VA recent stent x 2 in february 2018, IDDM, presents with complaint of sob x 1 month, tobar, orthopnea (desciribes feeling choking) that has been worsening signifiant so much luiza the could not sleep last night. denies chest pain, fever/chills, cough., hemoptysis, melena, bpr. Allergies: NKA Past surgical history: 2 Stents, b/l foot surgery, craniotomy Social history: Denies PCP: Doron Clinton Solar Installer Pv: Dr. Rossi - Physicial Exam PE: 08/28/18 16:38 GENERAL: The patient is awake, alert, and fully oriented, Nontoxic - in no acute distress. HEAD: Normocephalic, atraumatic. EYES: extraocular movements intact, sclera anicteric, conjunctiva clear. ENT: Normal voice, Moist mucous membranes. LUNGS: scattered rales b/l HEART: Regular rate and rhythm, normal S1 and S2 without murmur, rub or gallop. ABDOMEN: Soft, nontender, normoactive bowel sounds. No guarding, no rebound. No masses. EXTREMITIES: Normal range of motion, no edema. NEUROLOGICAL: No facial asymmetry, Normal speech, PSYCH: Normal mood, normal affect. - Medical Decision Making 08/28/18 16:42 suspect CHF, concern as pt recently had VA cxcr to r/o pna trop/ekg to screen for acs will obtain blood work, cxr, ekg, will likely need formal echo
[2018-08-28] MEDS ORDERED: ACETAMINOPHEN 325 MG TABLET (FP) PO PRN (17:17)
--- NOTE | 2018-08-28 17:26 | HP ---
Admitting History and Physical - Primary Care Physician PCP: Doron Clinton - Admission Chief Complaint: I'm short of breath History of Present Illness: Mr Woods is a 77 year old male who comes in with a one month history of dyspnea on exertion. He says that he was in his normal state of health until 1 month ago where he began to become short of breath with exertion. He cannot tell me how much exertion it takes before he gets short of breath, just that it is not much. He denies orthopnea to me. He says he has a non-productive cough. He notes worsening swelling in both his feet. He denies fevers, chills, lightheadedness, dizziness, passing out, chest pain or pressure, vomiting, diarrhea, constipation, difficulty or pain on urination. He says he has nausea secondary to his trulicity which causes him to eat less. History Source: Patient Limitations to Obtaining History: Poor Historian - Past Medical History PATIENT INTAKE COORDINATOR: Yes: Other (trigeminal neuralgia) Cardiovascular: Yes: AFIB, CAD, CHF, HTN, Hyperlipdemia Renal/: Yes: BPH Endocrine: Yes: Diabetes Mellitus - Past Surgical History Past Surgical History: Yes: Laminectomy, Stent - Smoking History Smoking history: Former smoker Have you smoked in the past 12 months: No Aproximately how many cigarettes per day: 0 If you are a former smoker, when did you quit?: 1963 - Alcohol/Substance Use Hx Alcohol Use: No History of Substance Use: reports: None - Social History Usual Living Arrangement: Yes: Alone ADL: Independent History of Recent Travel: No Home Medications - Allergies Allergies/Adverse Reactions: Allergies Allergy/AdvReac Type Severity Reaction Status Date / Time No Known Allergies Allergy Verified 08/28/18 14:27 - Home Medications Home Medications: Ambulatory Orders Losartan Potassium 100 mg PO DAILY 10/24/15 Atorvastatin Ca [Lipitor] 20 mg PO HS 02/07/17 Amiodarone HCl 200 mg PO DAILY 03/30/18 Apixaban [Eliquis -] 5 mg PO BID 03/30/18 Aspirin [ASA -] 81 mg PO DAILY 03/30/18 Clopidogrel Bisulfate [Plavix -] 75 mg PO DAILY 03/30/18 Fluticasone Prop 0.05% Nasal [Flonase -] 1 - 2 spray NS DAILY 03/30/18 Furosemide [Lasix -] 20 mg PO DAILY 03/30/18 Isosorbide Mononitrate [Isosorbide Mononitrate ER] 30 mg PO DAILY 03/30/18 Meclizine HCl [Antivert -] 12.5 mg PO TID #21 tablet 03/30/18 Metoprolol Succinate [Toprol Xl -] 50 mg PO BID 03/30/18 Dulaglutide [Trulicity] 0.75 mg SQ DAILY 08/28/18 Linaclotide [Linzess] 290 mcg PO DAILY 08/28/18 Family Disease History - Family Disease History Family Disease History: Diabetes: Father, Heart Disease: Mother, Sister, CA: Brother Review of Systems Findings/Remarks: Full review of systems obtained, as per HPI and otherwise negative Physical Examination Vital Signs: Vital Signs Temperature 36.8 C 08/28/18 14:27 Pulse Rate 111 H 08/28/18 14:27 Respiratory Rate 20 08/28/18 14:27 Blood Pressure 122/82 08/28/18 14:27 O2 Sat by Pulse Oximetry (%) 96 08/28/18 14:27 Constitutional: Yes: Well Nourished, No Distress, Calm Eyes: Yes: Conjunctiva Clear, EOM Intact, PERRL Cardiovascular: Yes: Tachycardia, Pulse Irregular. No: Gallop, Murmur, Rub Respiratory: Yes: Regular, Rales (bilaterally). No: CTA Bilaterally, Rhonchi, Wheezes Gastrointestinal: Yes: Normal Bowel Sounds, Soft. No: Distention, Tenderness Extremities: Yes: WNL Edema: Yes Edema: LLE: 2+, RLE: 2+ Labs: CBC, BMP 08/28/18 16:00 08/28/18 16:00 Imaging - Results Chest X-ray: Report Reviewed, Image Reviewed EKG: Report Reviewed, Image Reviewed Problem List - Problems (1) CHF (congestive heart failure) Assessment/Plan: -admit to telemetry -consult cardiology -ECHO -lasix 40mg IV bid -daily weights -continue toprol xl and losartan Code(s): I50.9 - HEART FAILURE, UNSPECIFIED Qualifiers: Heart failure type: unspecified Heart failure chronicity: acute on chronic Qualified Code(s): I50.9 - Heart failure, unspecified (2) CAD (coronary artery disease) Assessment/Plan: -quiescent -continue medical management Code(s): I25.10 - ATHSCL HEART DISEASE OF [place] CORONARY ARTERY W/O ANG PCTRS (3) CKD (chronic kidney disease) Assessment/Plan: -at baseline Code(s): N18.9 - CHRONIC KIDNEY DISEASE, UNSPECIFIED Qualifiers: Chronic kidney disease stage: stage 3 (moderate) Qualified Code(s): N18.3 - Chronic kidney disease, stage 3 (moderate) (4) Diabetes Assessment/Plan: -on trulicity at home -will hold here -FSBS and SSI -diabetic/sodium controlled diet Code(s): E11.9 - TYPE 2 DIABETES MELLITUS WITHOUT COMPLICATIONS Qualifiers: Diabetes mellitus type: type 2 Diabetes mellitus meterman insulin use: without meterman use Diabetes mellitus complication status: with kidney complications Diabetes mellitus complication detail: with chronic kidney disease Chronic kidney disease stage: stage 3 (moderate) Qualified Code(s): E11.22 - Type 2 diabetes mellitus with diabetic chronic kidney disease; N18.3 - Chronic kidney disease, stage 3 (moderate) (5) Hypertension Assessment/Plan: -controlled -continue losartan and toprol xl -on IV lasix as well Code(s): I10 - ESSENTIAL (PRIMARY) HYPERTENSION Qualifiers: Hypertension type: essential hypertension Qualified Code(s): I10 - Essential (primary) hypertension (6) Atrial fibrillation Assessment/Plan: -continue amiodarone and eliquis Code(s): I48.91 - UNSPECIFIED ATRIAL FIBRILLATION Qualifiers: Atrial fibrillation type: chronic Qualified Code(s): I48.2 - Chronic atrial fibrillation
[2018-08-28] MEDS ORDERED: ATORVASTATIN CA 20 MG TABLET (FP) ONE (21:41)
[2018-08-28] MEDS ORDERED: APIXABAN 5 MG TABLET PO ONE (21:42)
[2018-08-28] MEDS: ATORVASTATIN CA 10 MG TABLET (FP) PO SCH (21:52)
[2018-08-28] MEDS: APIXABAN 5 MG TABLET PO SCH (21:52)
[2018-08-28] MEDS ORDERED: INSULIN (NOVOLOG) ASPART 100 UNITS/ML 10ML VIAL ONE (22:31)
[2018-08-28] MEDS: INSULIN SLIDING SCALE (NOVOLOG) 1 VIAL SQ SCH (22:35)
[2018-08-29] MEDS ORDERED: FUROSEMIDE 40 MG/4 ML INJECTABLE VIAL ONE (06:08)
[2018-08-29] MEDS: FUROSEMIDE 40 MG/4 ML INJECTABLE VIAL IVPUSH SCH ×2 (06:25→14:03)
[2018-08-29] MEDS: INSULIN SLIDING SCALE (NOVOLOG) 1 VIAL SQ SCH ×4 (06:26→22:36)
[2018-08-29 07:08] LABS: BASO % 0.6 % (0-2.0); EOS % 3.1 % (0-4.5); HEMATOCRIT 46.4 % (35.4-49); HEMOGLOBIN 15.6 GM/dL (11.7-16.9); LYMPH % 30.2 % (8-40); MCH 29.7 pg (25.7-33.7); MCHC 33.6 g/dl (32.0-35.9); MEAN CELL VOLUME 88.5 fl (80-96); MEAN PLT VOLUME 8.5 fl (7.5-11.1); MONO % 9.9 % (3.8-10.2); NEUT % 56.2 % (42.8-82.8); PLATELET COUNT 255 K/MM3 (134-434); RBC 5.24 M/mm3 (4.00-5.60); RDW 14.4 % (11.9-15.9); WHITE BLOOD COUNT 5.9 K/mm3 (4.0-10.0)
[2018-08-29 07:31] LABS: BLOOD UREA NITROGEN 27.6 mg/dL (7-18); CALCIUM 9.4 mg/dL (8.5-10.1); CREATININE 1.7 mg/dL (0.55-1.3); MAGNESIUM 2.3 mg/dL (1.8-2.4); PHOSPHOROUS 3.9 mg/dL (2.5-4.9)
[2018-08-29] MEDS ORDERED: PT OWN MED DRAWER 7, Y5N ONE (09:14)
[2018-08-29] MEDS: AMIODARONE HCL 200 MG TABLET (FP) PO SCH (09:21)
[2018-08-29] MEDS: ASPIRIN 81 MG CHEWABLE TABLETS PO SCH (09:21)
[2018-08-29] MEDS: LOSARTAN POTASSIUM 50 MG TABLET (FP) PO SCH (09:22)
[2018-08-29] MEDS: ISOSORBIDE MONONITRATE 30 MG TAB.SR.24H (FP) PO SCH (09:23)
[2018-08-29] MEDS: CLOPIDOGREL BISULFATE 75 MG TABLET (FP) PO SCH (09:23)
[2018-08-29] MEDS: APIXABAN 5 MG TABLET PO SCH ×2 (09:23→22:36)
--- NOTE | 2018-08-29 11:13 | CON.CARD ---
Cardiology Consult (text) - Consultation Consultation Note: cc: sob hpi: 77 m hx dm, htn, syst chf, cad s/p pci several months ago, afib, ckd, here with sob. Past week has noticed progressively worsening tobar. No cp palps dizzy loc pnd orthopnea. Mild edema. Got iv lasix here and feeling better. Sees dr hernandez for cardio. pmh: per hpi psh: back surgery social: no tob fam: no premature cad ros: per hpi; all others nl meds: Home Medications Medication Instructions Recorded Losartan Potassium 100 mg PO DAILY 10/24/15 Atorvastatin Ca [Lipitor] 20 mg PO HS 02/07/17 Amiodarone HCl 200 mg PO DAILY 03/30/18 Apixaban [Eliquis -] 5 mg PO BID 03/30/18 Aspirin [ASA -] 81 mg PO DAILY 03/30/18 Clopidogrel Bisulfate [Plavix -] 75 mg PO DAILY 03/30/18 Fluticasone Prop 0.05% Nasal 1 - 2 spray NS DAILY 03/30/18 [Flonase -] Furosemide [Lasix -] 20 mg PO DAILY 03/30/18 Isosorbide Mononitrate [Isosorbide 30 mg PO DAILY 03/30/18 Mononitrate ER] Meclizine HCl [Antivert -] 12.5 mg PO TID #21 tablet 03/30/18 Metoprolol Succinate [Toprol Xl -] 50 mg PO BID 03/30/18 Dulaglutide [Trulicity] 0.75 mg SQ DAILY 08/28/18 Linaclotide [Linzess] 290 mcg PO DAILY 08/28/18 pe: Vital Signs Period Temp Pulse Resp BP Sys/Mcgrath Pulse Ox Last 24 Hr 98.3 F-98.4 F 98-111 16-20 122-157/82-117 95-99 nad no jvd irreg, s1s2 no mrg cta bl nl eff aao3 trace le edema bl, no c/c abd nt nd pos bs no jaundice diaphoresis pos pt dp no cartoid bruits Laboratory Last Values WBC 5.9 K/mm3 (4.0-10.0) 08/29/18 06:34 RBC 5.24 M/mm3 (4.00-5.60) 08/29/18 06:34 Hgb 15.6 GM/dL (11.7-16.9) 08/29/18 06:34 Hct 46.4 % (35.4-49) 08/29/18 06:34 MCV 88.5 fl (80-96) 08/29/18 06:34 MCH 29.7 pg (25.7-33.7) 08/29/18 06:34 MCHC 33.6 g/dl (32.0-35.9) 08/29/18 06:34 RDW 14.4 % (11.9-15.9) 08/29/18 06:34 Plt Count 255 K/MM3 (134-434) 08/29/18 06:34 MPV 8.5 fl (7.5-11.1) 08/29/18 06:34 Absolute Neuts (auto) 3.3 K/mm3 (1.5-8.0) 08/29/18 06:34 Neutrophils % 56.2 % (42.8-82.8) 08/29/18 06:34 Lymphocytes % 30.2 % (8-40) D 08/29/18 06:34 Monocytes % 9.9 % (3.8-10.2) 08/29/18 06:34 Eosinophils % 3.1 % (0-4.5) 08/29/18 06:34 Basophils % 0.6 % (0-2.0) 08/29/18 06:34 Nucleated RBC % 0 % (0-0) 08/29/18 06:34 PT with INR 16.20 SEC (9.7-13.0) H 08/28/18 16:00 INR 1.37 (0.83-1.09) H 08/28/18 16:00 Sodium 144 mmol/L (136-145) 08/29/18 06:34 Potassium 4.0 mmol/L (3.5-5.1) 08/29/18 06:34 Chloride 108 mmol/L (98-107) H 08/29/18 06:34 Carbon Dioxide 31 mmol/L (21-32) 08/29/18 06:34 Anion Gap 5 MMOL/L (8-16) L 08/29/18 06:34 BUN 27.6 mg/dL (7-18) H 08/29/18 06:34 Creatinine 1.7 mg/dL (0.55-1.3) H 08/29/18 06:34 Est GFR (CKD-EPI)AfAm 43.79 08/29/18 06:34 Est GFR (CKD-EPI)NonAf 37.79 08/29/18 06:34 Random Glucose 142 mg/dL (74-106) H 08/29/18 06:34 Calcium 9.4 mg/dL (8.5-10.1) 08/29/18 06:34 Phosphorus 3.9 mg/dL (2.5-4.9) 08/29/18 06:34 Magnesium 2.3 mg/dL (1.8-2.4) 08/29/18 06:34 Total Bilirubin 0.8 mg/dL (0.2-1) 08/28/18 16:00 AST 34 U/L (15-37) 08/28/18 16:00 ALT 50 U/L (13-61) 08/28/18 16:00 Alkaline Phosphatase 115 U/L (45-117) 08/28/18 16:00 Creatine Kinase 293 U/L (26-308) 08/28/18 16:00 Creatine Kinase Index 1.6 % (0.0-5.0) 08/28/18 16:00 CK-MB (CK-2) 4.9 ng/mL (0.5-3.6) H 08/28/18 16:00 Troponin I 0.02 ng/ml (0.00-0.05) 08/28/18 16:00 B-Natriuretic Peptide 3551.4 pg/ml (5-450) H 08/28/18 16:00 Total Protein 6.9 g/dl (6.4-8.2) 08/28/18 16:00 Albumin 3.2 g/dl (3.4-5.0) L 08/28/18 16:00 Urine Color Yellow 08/28/18 16:00 Urine Appearance Clear 08/28/18 16:00 Urine pH 5.0 (5.0-8.0) 08/28/18 16:00 Ur Specific [place] 1.014 (1.010-1.035) 08/28/18 16:00 Urine Protein 2+ (NEGATIVE) H 08/28/18 16:00 Urine Glucose (UA) Negative (NEGATIVE) 08/28/18 16:00 Urine Ketones Negative (NEGATIVE) 08/28/18 16:00 Urine Blood Trace (NEGATIVE) 08/28/18 16:00 Urine Nitrite Negative (NEGATIVE) 08/28/18 16:00 Urine Bilirubin Negative (NEGATIVE) 08/28/18 16:00 Urine Urobilinogen 0.2 mg/dL (0.2-1.0) 08/28/18 16:00 Ur Leukocyte Esterase Negative (NEGATIVE) 08/28/18 16:00 Urine WBC (Auto) 1 /hpf (0-5) 08/28/18 16:00 Urine RBC (Auto) 1 /hpf (0-4) 08/28/18 16:00 Urine Casts (Auto) 3 /lpf (0-8) 08/28/18 16:00 U Epithel Cells (Auto) 0.2 /HPF (0-5/HPF) 08/28/18 16:00 Urine Bacteria (Auto) 1.2 /hpf (NEGATIVE) 08/28/18 16:00 cxr: no chf echo 01/2017: mild-mod red lvef, inf hk, mild dec rv fcn, nl rv size, mild-mod mr, mild tr, mild phtn ecg: aflutter, 105, old rbbb a/p: 77 m hx dm, htn, syst chf, cad s/p pci several months ago, afib, ckd, here with sob. acute systolic chf: -no signs acs -cont iv lasix, daily wts, chem7 -check echo htn: -cont home meds cad s/p pci: -recent pci <1 year ago, cont dapt -no signs acs, cont ed on tele -cont statin, bb, arb, imdur afib: -cont bb -cont eliquis -monitor on tele ckd: -cr near baseline
--- NOTE | 2018-08-29 11:40 | PN ---
Progress Note, Physician Chief Complaint: Mr Woods says he is feeling better. Still with some dyspnea on exertion but better. Denies cp, sob, n/v - Current Medication List Current Medications: Active Medications Acetaminophen (Tylenol -) 650 mg PO Q4H PRN PRN Reason: PAIN Amiodarone HCl (Cordarone -) 200 mg PO DAILY [facility] Last Admin: 08/29/18 09:21 Dose: 200 mg Apixaban (Eliquis -) 5 mg PO BID [facility] Last Admin: 08/29/18 09:23 Dose: 5 mg Aspirin (Asa -) 81 mg PO DAILY [facility] Last Admin: 08/29/18 09:21 Dose: 81 mg Atorvastatin Calcium (Lipitor -) 20 mg PO HS [facility] Last Admin: 08/28/18 21:52 Dose: 20 mg Clopidogrel Bisulfate (Plavix -) 75 mg PO DAILY [facility] Last Admin: 08/29/18 09:23 Dose: 75 mg Furosemide (Lasix Injection -) 40 mg IVPUSH BID@0600,1400 [facility] Last Admin: 08/29/18 06:25 Dose: 40 mg Insulin Aspart (Novolog Vial Sliding Scale -) 1 vial SQ [facility]; Protocol Last Admin: 08/29/18 11:21 Dose: 2 unit Isosorbide Mononitrate (Imdur -) 30 mg PO DAILY [facility] Last Admin: 08/29/18 09:23 Dose: 30 mg Losartan Potassium (Cozaar -) 100 mg PO DAILY [facility] Last Admin: 08/29/18 09:22 Dose: 100 mg Metoprolol Succinate (Toprol Xl -) 50 mg PO BID [facility] Last Admin: 08/29/18 09:23 Dose: 50 mg - Objective Vital Signs: Vital Signs Temperature 36.9 C 08/29/18 08:49 Pulse Rate 105 H 08/29/18 08:49 Respiratory Rate 16 08/29/18 08:49 Blood Pressure 140/105 H 08/29/18 08:49 O2 Sat by Pulse Oximetry (%) 98 08/29/18 08:49 Constitutional: Yes: Well Nourished, No Distress, Calm Cardiovascular: Yes: Tachycardia, Pulse Irregular. No: Gallop, Murmur, Rub Respiratory: Yes: Regular, CTA Bilaterally. No: Rales, Rhonchi, Wheezes Gastrointestinal: Yes: Normal Bowel Sounds, Soft. No: Distention, Tenderness Extremities: Yes: WNL Edema: LLE: Trace, RLE: Trace Labs: CBC, BMP 08/29/18 06:34 08/29/18 06:34 INR, PTT INR 1.37 (0.83-1.09) H 08/28/18 16:00 Problem List - Problems (1) CHF (congestive heart failure) Code(s): I50.9 - HEART FAILURE, UNSPECIFIED Qualifiers: Heart failure type: unspecified Heart failure chronicity: acute on chronic Qualified Code(s): I50.9 - Heart failure, unspecified (2) CAD (coronary artery disease) Code(s): I25.10 - ATHSCL HEART DISEASE OF [place] CORONARY ARTERY W/O ANG PCTRS (3) CKD (chronic kidney disease) Code(s): N18.9 - CHRONIC KIDNEY DISEASE, UNSPECIFIED Qualifiers: Chronic kidney disease stage: stage 3 (moderate) Qualified Code(s): N18.3 - Chronic kidney disease, stage 3 (moderate) (4) Diabetes Code(s): E11.9 - TYPE 2 DIABETES MELLITUS WITHOUT COMPLICATIONS Qualifiers: Diabetes mellitus type: type 2 Diabetes mellitus half-way insulin use: without half-way use Diabetes mellitus complication status: with kidney complications Diabetes mellitus complication detail: with chronic kidney disease Chronic kidney disease stage: stage 3 (moderate) Qualified Code(s): E11.22 - Type 2 diabetes mellitus with diabetic chronic kidney disease; N18.3 - Chronic kidney disease, stage 3 (moderate) (5) Hypertension Code(s): I10 - ESSENTIAL (PRIMARY) HYPERTENSION Qualifiers: Hypertension type: essential hypertension Qualified Code(s): I10 - Essential (primary) hypertension (6) Atrial fibrillation Code(s): I48.91 - UNSPECIFIED ATRIAL FIBRILLATION Qualifiers: Atrial fibrillation type: chronic Qualified Code(s): I48.2 - Chronic atrial fibrillation Assessment/Plan (1) CHF (congestive heart failure) Assessment/Plan: -case d/w Dr Vicente -continue telemetry -ECHO ordered -lasix 40mg IV bid -daily weights -continue toprol xl and losartan Code(s): I50.9 - HEART FAILURE, UNSPECIFIED Qualifiers: Heart failure type: unspecified Heart failure chronicity: acute on chronic Qualified Code(s): I50.9 - Heart failure, unspecified (2) CAD (coronary artery disease) Assessment/Plan: -quiescent -continue medical management Code(s): I25.10 - ATHSCL HEART DISEASE OF [place] CORONARY ARTERY W/O ANG PCTRS (3) CKD (chronic kidney disease) Assessment/Plan: -at baseline Code(s): N18.9 - CHRONIC KIDNEY DISEASE, UNSPECIFIED Qualifiers: Chronic kidney disease stage: stage 3 (moderate) Qualified Code(s): N18.3 - Chronic kidney disease, stage 3 (moderate) (4) Diabetes Assessment/Plan: -on trulicity at home -will hold here -FSBS and SSI -diabetic/sodium controlled diet Code(s): E11.9 - TYPE 2 DIABETES MELLITUS WITHOUT COMPLICATIONS Qualifiers: Diabetes mellitus type: type 2 Diabetes mellitus termite treater insulin use: without half-way use Diabetes mellitus complication status: with kidney complications Diabetes mellitus complication detail: with chronic kidney disease Chronic kidney disease stage: stage 3 (moderate) Qualified Code(s): E11.22 - Type 2 diabetes mellitus with diabetic chronic kidney disease; N18.3 - Chronic kidney disease, stage 3 (moderate) (5) Hypertension Assessment/Plan: -controlled -continue losartan and toprol xl -on IV lasix as well Code(s): I10 - ESSENTIAL (PRIMARY) HYPERTENSION Qualifiers: Hypertension type: essential hypertension Qualified Code(s): I10 - Essential (primary) hypertension (6) Atrial fibrillation Assessment/Plan: -continue amiodarone and eliquis -slightly tachycardic -cardiology aware Code(s): I48.91 - UNSPECIFIED ATRIAL FIBRILLATION Qualifiers: Atrial fibrillation type: chronic Qualified Code(s): I48.2 - Chronic atrial fibrillation
[2018-08-29] MEDS ORDERED: ACETAMINOPHEN 325 MG TABLET (FP) ONE (17:17)
[2018-08-29] MEDS: ATORVASTATIN CA 10 MG TABLET (FP) PO SCH (22:35)
[2018-08-30] MEDS: FUROSEMIDE 40 MG/4 ML INJECTABLE VIAL IVPUSH SCH (05:52)
[2018-08-30] MEDS: INSULIN SLIDING SCALE (NOVOLOG) 1 VIAL SQ SCH ×4 (06:54→23:25)
[2018-08-30 07:45] LABS: BASO % 0.4 % (0-2.0); EOS % 3.6 % (0-4.5); HEMOGLOBIN 15.4 GM/dL (11.7-16.9); LYMPH % 25.3 % (8-40); MCH 29.4 pg (25.7-33.7); MCHC 33.5 g/dl (32.0-35.9); MEAN CELL VOLUME 87.8 fl (80-96); MEAN PLT VOLUME 8.6 fl (7.5-11.1); MONO % 10.7 % (3.8-10.2); PLATELET COUNT 270 K/MM3 (134-434); RBC 5.24 M/mm3 (4.00-5.60); WHITE BLOOD COUNT 6.6 K/mm3 (4.0-10.0)
[2018-08-30 08:12] LABS: BLOOD UREA NITROGEN 36.2 mg/dL (7-18); CALCIUM 8.9 mg/dL (8.5-10.1); CREATININE 1.8 mg/dL (0.55-1.3); MAGNESIUM 1.9 mg/dL (1.8-2.4); PHOSPHOROUS 4.4 mg/dL (2.5-4.9); POTASSIUM 4.1 mmol/L (3.5-5.1)
[2018-08-30] MEDS ORDERED: PT OWN MED DRAWER 7, Y5N ONE (09:38)
--- NOTE | 2018-08-30 09:44 | PN ---
Progress Note, Physician Chief Complaint: sob History of Present Illness: sob has resolved completely. walking within room to and from bathroom. ankle swelling resolved. no cp, palpit - Current Medication List Current Medications: Active Medications Acetaminophen (Tylenol -) 650 mg PO Q4H PRN PRN Reason: PAIN Last Admin: 08/29/18 17:28 Dose: 650 mg Amiodarone HCl (Cordarone -) 200 mg PO DAILY [facility] Last Admin: 08/29/18 09:21 Dose: 200 mg Apixaban (Eliquis -) 5 mg PO BID [facility] Last Admin: 08/29/18 22:36 Dose: 5 mg Aspirin (Asa -) 81 mg PO DAILY [facility] Last Admin: 08/29/18 09:21 Dose: 81 mg Atorvastatin Calcium (Lipitor -) 20 mg PO HS [facility] Last Admin: 08/29/18 22:35 Dose: 20 mg Clopidogrel Bisulfate (Plavix -) 75 mg PO DAILY [facility] Last Admin: 08/29/18 09:23 Dose: 75 mg Furosemide (Lasix Injection -) 40 mg IVPUSH BID@0600,1400 [facility] Last Admin: 08/30/18 05:52 Dose: 40 mg Insulin Aspart (Novolog Vial Sliding Scale -) 1 vial SQ [facility]; Protocol Last Admin: 08/30/18 06:54 Dose: 2 unit Isosorbide Mononitrate (Imdur -) 30 mg PO DAILY [facility] Last Admin: 08/29/18 09:23 Dose: 30 mg Losartan Potassium (Cozaar -) 100 mg PO DAILY [facility] Last Admin: 08/29/18 09:22 Dose: 100 mg Metoprolol Succinate (Toprol Xl -) 50 mg PO BID [facility] Last Admin: 08/29/18 22:35 Dose: 50 mg - Objective Vital Signs: Vital Signs Temperature 98.4 F 08/30/18 06:25 Pulse Rate 101 H 08/30/18 06:25 Respiratory Rate 18 08/30/18 09:00 Blood Pressure 126/80 08/30/18 06:25 O2 Sat by Pulse Oximetry (%) 97 08/30/18 09:00 Constitutional: Yes: Well Nourished, No Distress, Calm Cardiovascular: Yes: Pulse Irregular, S1, S2. No: JVD, Gallop, Murmur Respiratory: Yes: Regular, CTA Bilaterally. No: Accessory Muscle Use, Rales, Wheezes Extremities: No: Cold Edema: No Neurological: Yes: Alert, Oriented Psychiatric: No: Agitated Labs: CBC, BMP 08/30/18 06:45 08/30/18 06:45 INR, PTT INR 1.37 (0.83-1.09) H 08/28/18 16:00 Assessment/Plan cxr: no chf echo 01/2017: mild-mod red lvef, inf hk, mild dec rv fcn, nl rv size, mild-mod mr, mild tr, mild phtn ecg: aflutter, 105, old rbbb tele: afib, HR 100s a/p: 77 m hx dm, htn, syst chf, cad s/p pci several months ago, afib, ckd, here with sob. sob, chronic syst chf: -cxr clear, no JVD on exam -receiving iv lasix 40 bid here: wt rising, bun/creat worsening. his chf sx's ( sob, pedal edema) have resolved. d/c lasix, monitor renal fxn in AM -check echo today htn: -bp controlled -cont home meds cad s/p pci: -recent pci <1 year ago, cont dapt -no signs acs here -cont statin, bb, arb, imdur -outpt f/u dr hernandez afib/flutter: -aggressive HR control warranted given systolic CHF -on metoprolol succ 50 bid and amio 200 qd at home--in AF here. need to review dr hernandez records re: amio rationale (dr hernandez to see pt tomorrow). -resting HR 100s here--incr metopr to 75 bid -cont eliquis -monitor on tele ckd: -? baseline (creat x 1 was 1.8 in 03/06) -as above
[2018-08-30] MEDS: ISOSORBIDE MONONITRATE 30 MG TAB.SR.24H (FP) PO SCH (09:54)
[2018-08-30] MEDS: AMIODARONE HCL 200 MG TABLET (FP) PO SCH (09:54)
[2018-08-30] MEDS: CLOPIDOGREL BISULFATE 75 MG TABLET (FP) PO SCH (09:54)
[2018-08-30] MEDS: LOSARTAN POTASSIUM 50 MG TABLET (FP) PO SCH (09:54)
[2018-08-30] MEDS: APIXABAN 5 MG TABLET PO SCH ×2 (09:54→23:25)
[2018-08-30] MEDS: ASPIRIN 81 MG CHEWABLE TABLETS PO SCH (09:54)
--- NOTE | 2018-08-30 10:05 | PN ---
Progress Note, Physician Chief Complaint: Mr Woods says he is feeling good. Dyspnea is improving. No cp or n/v. - Current Medication List Current Medications: Active Medications Acetaminophen (Tylenol -) 650 mg PO Q4H PRN PRN Reason: PAIN Last Admin: 08/29/18 17:28 Dose: 650 mg Amiodarone HCl (Cordarone -) 200 mg PO DAILY [facility] Last Admin: 08/30/18 09:54 Dose: 200 mg Apixaban (Eliquis -) 5 mg PO BID [facility] Last Admin: 08/30/18 09:54 Dose: 5 mg Aspirin (Asa -) 81 mg PO DAILY [facility] Last Admin: 08/30/18 09:54 Dose: 81 mg Atorvastatin Calcium (Lipitor -) 20 mg PO HS [facility] Last Admin: 08/29/18 22:35 Dose: 20 mg Clopidogrel Bisulfate (Plavix -) 75 mg PO DAILY [facility] Last Admin: 08/30/18 09:54 Dose: 75 mg Furosemide (Lasix Injection -) 40 mg IVPUSH BID@0600,1400 [facility] Last Admin: 08/30/18 05:52 Dose: 40 mg Insulin Aspart (Novolog Vial Sliding Scale -) 1 vial SQ [facility]; Protocol Last Admin: 08/30/18 06:54 Dose: 2 unit Isosorbide Mononitrate (Imdur -) 30 mg PO DAILY [facility] Last Admin: 08/30/18 09:54 Dose: 30 mg Losartan Potassium (Cozaar -) 100 mg PO DAILY [facility] Last Admin: 08/30/18 09:54 Dose: 100 mg Metoprolol Succinate (Toprol Xl -) 50 mg PO BID [facility] Last Admin: 08/30/18 09:54 Dose: 50 mg - Objective Vital Signs: Vital Signs Temperature 36.9 C 08/30/18 06:25 Pulse Rate 101 H 08/30/18 06:25 Respiratory Rate 18 08/30/18 09:00 Blood Pressure 126/80 08/30/18 06:25 O2 Sat by Pulse Oximetry (%) 97 08/30/18 09:00 Constitutional: Yes: Well Nourished, No Distress, Calm Cardiovascular: Yes: Tachycardia (slight), Pulse Irregular. No: Gallop, Murmur , Rub Respiratory: Yes: Regular, CTA Bilaterally. No: Rales, Rhonchi, Wheezes Gastrointestinal: Yes: Normal Bowel Sounds, Soft. No: Distention, Tenderness Extremities: Yes: WNL Edema: No Labs: CBC, BMP 08/30/18 06:45 08/30/18 06:45 INR, PTT INR 1.37 (0.83-1.09) H 08/28/18 16:00 Problem List - Problems (1) CHF (congestive heart failure) Code(s): I50.9 - HEART FAILURE, UNSPECIFIED Qualifiers: Heart failure type: unspecified Heart failure chronicity: acute on chronic Qualified Code(s): I50.9 - Heart failure, unspecified (2) CAD (coronary artery disease) Code(s): I25.10 - ATHSCL HEART DISEASE OF [place] CORONARY ARTERY W/O ANG PCTRS (3) CKD (chronic kidney disease) Code(s): N18.9 - CHRONIC KIDNEY DISEASE, UNSPECIFIED Qualifiers: Chronic kidney disease stage: stage 3 (moderate) Qualified Code(s): N18.3 - Chronic kidney disease, stage 3 (moderate) (4) Diabetes Code(s): E11.9 - TYPE 2 DIABETES MELLITUS WITHOUT COMPLICATIONS Qualifiers: Diabetes mellitus type: type 2 Diabetes mellitus fdc insulin use: without fdc use Diabetes mellitus complication status: with kidney complications Diabetes mellitus complication detail: with chronic kidney disease Chronic kidney disease stage: stage 3 (moderate) Qualified Code(s): E11.22 - Type 2 diabetes mellitus with diabetic chronic kidney disease; N18.3 - Chronic kidney disease, stage 3 (moderate) (5) Hypertension Code(s): I10 - ESSENTIAL (PRIMARY) HYPERTENSION Qualifiers: Hypertension type: essential hypertension Qualified Code(s): I10 - Essential (primary) hypertension (6) Atrial fibrillation Code(s): I48.91 - UNSPECIFIED ATRIAL FIBRILLATION Qualifiers: Atrial fibrillation type: chronic Qualified Code(s): I48.2 - Chronic atrial fibrillation Assessment/Plan (1) CHF (congestive heart failure) Assessment/Plan: -case d/w Dr Louise who will see later -continue telemetry -awaiting ECHO -lasix 40mg IV bid -weight is increasing today -continue toprol xl and losartan Code(s): I50.9 - HEART FAILURE, UNSPECIFIED Qualifiers: Heart failure type: unspecified Heart failure chronicity: acute on chronic Qualified Code(s): I50.9 - Heart failure, unspecified (2) CAD (coronary artery disease) Assessment/Plan: -quiescent -continue medical management Code(s): I25.10 - ATHSCL HEART DISEASE OF [place] CORONARY ARTERY W/O ANG PCTRS (3) CKD (chronic kidney disease) Assessment/Plan: -at baseline but at upper limit -monitor Code(s): N18.9 - CHRONIC KIDNEY DISEASE, UNSPECIFIED Qualifiers: Chronic kidney disease stage: stage 3 (moderate) Qualified Code(s): N18.3 - Chronic kidney disease, stage 3 (moderate) (4) Diabetes Assessment/Plan: -on trulicity at home -will hold here -FSBS and SSI -diabetic/sodium controlled diet Code(s): E11.9 - TYPE 2 DIABETES MELLITUS WITHOUT COMPLICATIONS Qualifiers: Diabetes mellitus type: type 2 Diabetes mellitus fdc insulin use: without fdc use Diabetes mellitus complication status: with kidney complications Diabetes mellitus complication detail: with chronic kidney disease Chronic kidney disease stage: stage 3 (moderate) Qualified Code(s): E11.22 - Type 2 diabetes mellitus with diabetic chronic kidney disease; N18.3 - Chronic kidney disease, stage 3 (moderate) (5) Hypertension Assessment/Plan: -controlled -continue losartan and toprol xl -on IV lasix as well Code(s): I10 - ESSENTIAL (PRIMARY) HYPERTENSION Qualifiers: Hypertension type: essential hypertension Qualified Code(s): I10 - Essential (primary) hypertension (6) Atrial fibrillation Assessment/Plan: -continue amiodarone and eliquis -slightly tachycardic -cardiology aware Code(s): I48.91 - UNSPECIFIED ATRIAL FIBRILLATION Qualifiers: Atrial fibrillation type: chronic Qualified Code(s): I48.2 - Chronic atrial fibrillation
[2018-08-30] MEDS ORDERED: metoPROLOL SUCCINATE 25 MG TAB.SR.24H (FP) PO ONE (11:59)
--- NOTE | 2018-08-30 15:20 | ECHO ---
Name: FRED HURLEY Exam:Adult Echocardiogram Study Date: 08/30/2018 01:48 PM Age: 77 yrs Reason For Study: CHF Height: 70 in Weight: 190 lb BSA: 2.0 m2 MMode/2D Measurements & Calculations IVSd: 1.3 cm ACS: 1.8 cm LVIDd: 4.8 cm LVIDs: 3.3 cm LVPWd: 1.5 cm EDV(Teich): 105.0 ml LVOT diam: 2.0 cm ESV(Teich): 44.3 ml RV S Murali: 12.6 cm/sec Doppler Measurements & Calculations MV E max murali: 91.8 cm/sec Ao V2 max: 115.5 cm/sec MV A max murlai: 27.1 cm/sec Ao max P.3 mmHg MV E/A: 3.4 Ao V2 mean: 83.0 cm/sec Ao mean P.0 mmHg Ao V2 VTI: 19.6 cm ALMA(I,D): 1.7 cm2 ALMA(V,D): 1.6 cm2 LV V1 max P.5 mmHg SV(LVOT): 32.4 ml LV V1 mean P.82 mmHg LV V1 max: 60.7 cm/sec LV V1 mean: 42.2 cm/sec LV V1 VTI: 10.7 cm TR max murali: 230.3 cm/sec Med Peak E' Murali: 5.4 cm/sec TR max P.4 mmHg Med E/e': 17.1 Lat Peak E' Murali: 7.1 cm/sec Lat E/e': 12.9 Procedure A complete two-dimensional transthoracic echocardiogram was performed (2D, M-mode, Doppler and color flow Doppler). Left Ventricle The left ventricle is normal in size. There is mild concentric left ventricular hypertrophy. Left samreen tricular systolic function is normal. Ejection Fraction = 55-60%. Diastolic dysfunction, Grade II (pseudonorma lization pattern). No regional wall motion abnormalities noted. Right Ventricle The right ventricle is normal size. The right ventricular systolic function is normal. RV systolic TD I is 13 cm/s. Atria The left atrial size is normal. Right atrial size is normal. Mitral Valve There is mild mitral annular calcification. There is no mitral regurgitation noted. Tricuspid Valve The tricuspid valve is normal in structure and function. There is mild tricuspid regurgitation. Right ventricular systolic pressure is normal. Aortic Valve There is mild aortic sclerosis.;. No aortic regurgitation is present. Pulmonic Valve The pulmonic valve is not well visualized. Great Vessels The aortic root is normal size. Pericardium/Pleura There is no pericardial effusion. Interpretation Summary The left ventricle is normal in size. There is mild concentric left ventricular hypertrophy. Left ventricular systolic function is normal. No regional wall motion abnormalities noted. Ejection Fraction = 55-60%. Diastolic dysfunction, Grade II (pseudonormalization pattern). The right ventricular systolic function is normal. The left atrial size is normal. Right atrial size is normal. There is mild mitral annular calcification. There is mild tricuspid regurgitation. Right ventricular systolic pressure is normal. There is mild aortic sclerosis.; There is no pericardial effusion. Previous study is not available for comparison Cameron Ambriz MD 08/30/2018 03:20 PM
[2018-08-30] MEDS ORDERED: metoPROLOL SUCCINATE 25 MG TAB.SR.24H (FP) ONE (21:44)
[2018-08-30] MEDS: METOPROLOL SUCCINATE 50 MG, METOPROLOL SUCCINATE 25 MG PO SCH (23:24)
[2018-08-30] MEDS: ATORVASTATIN CA 10 MG TABLET (FP) PO SCH (23:25)
[2018-08-31] MEDS: INSULIN SLIDING SCALE (NOVOLOG) 1 VIAL SQ SCH ×2 (06:09→11:31)
[2018-08-31 07:11] LABS: BASO % 0.5 % (0-2.0); EOS % 4.6 % (0-4.5); HEMATOCRIT 43.7 % (35.4-49); HEMOGLOBIN 14.8 GM/dL (11.7-16.9); LYMPH % 28.6 % (8-40); MCH 29.4 pg (25.7-33.7); MCHC 33.8 g/dl (32.0-35.9); MEAN PLT VOLUME 8.8 fl (7.5-11.1); NEUT % 56.3 % (42.8-82.8); RBC 5.02 M/mm3 (4.00-5.60); RDW 13.8 % (11.9-15.9); WHITE BLOOD COUNT 6.4 K/mm3 (4.0-10.0)
[2018-08-31 08:16] LABS: PLATELET COUNT 278 K/MM3 (134-434)
--- NOTE | 2018-08-31 08:31 | PN ---
Physical Exam: SUBJECTIVE: Patient seen and examined OBJECTIVE: Vital Signs Period Temp Pulse Resp BP Sys/Mcgrath Pulse Ox Last 24 Hr 97.5 F-98.2 F 65-116 18-20 112-164/62-98 96-97 Intake & Output 08/28/18 08/29/18 08/30/18 08/31/18 23:59 23:59 23:59 23:59 Intake Total 473 565 3387 Output Total 1900 2650 600 Balance -1780 -2410 900 Weight 190 lb 190 lb 192 lb 191 lb GENERAL: CVS: Neck: Chest: Abdomen: Extremities: Laboratory Results - last 24 hr 08/28/18 08/28/18 08/29/18 21:47 22:24 08:15 WBC RBC Hgb Hct MCV MCH MCHC RDW Plt Count MPV Absolute Neuts (auto) Neutrophils % Lymphocytes % Monocytes % Eosinophils % Basophils % Nucleated RBC % POC Glucometer 157 166 132 08/29/18 08/29/18 08/30/18 11:14 17:21 05:56 WBC RBC Hgb Hct MCV MCH MCHC RDW Plt Count MPV Absolute Neuts (auto) Neutrophils % Lymphocytes % Monocytes % Eosinophils % Basophils % Nucleated RBC % POC Glucometer 199 180 194 08/30/18 08/30/18 08/30/18 11:22 17:09 23:21 WBC RBC Hgb Hct MCV MCH MCHC RDW Plt Count MPV Absolute Neuts (auto) Neutrophils % Lymphocytes % Monocytes % Eosinophils % Basophils % Nucleated RBC % POC Glucometer 295 163 185 08/31/18 06:35 WBC 6.4 RBC 5.02 Hgb 14.8 Hct 43.7 MCV 87.0 MCH 29.4 MCHC 33.8 RDW 13.8 Plt Count 278 MPV 8.8 Absolute Neuts (auto) 3.6 Neutrophils % 56.3 Lymphocytes % 28.6 Monocytes % 10.0 Eosinophils % 4.6 H Basophils % 0.5 Nucleated RBC % 0 POC Glucometer Active Medications Home Medications Medication Instructions Recorded Losartan Potassium 100 mg PO DAILY 10/24/15 Atorvastatin Ca [Lipitor] 20 mg PO HS 02/07/17 Amiodarone HCl 200 mg PO DAILY 03/30/18 Apixaban [Eliquis -] 5 mg PO BID 03/30/18 Aspirin [ASA -] 81 mg PO DAILY 03/30/18 Clopidogrel Bisulfate [Plavix -] 75 mg PO DAILY 03/30/18 Fluticasone Prop 0.05% Nasal 1 - 2 spray NS DAILY 03/30/18 [Flonase -] Furosemide [Lasix -] 20 mg PO DAILY 03/30/18 Isosorbide Mononitrate [Isosorbide 30 mg PO DAILY 03/30/18 Mononitrate ER] Meclizine HCl [Antivert -] 12.5 mg PO TID #21 tablet 03/30/18 Metoprolol Succinate [Toprol Xl -] 50 mg PO BID 03/30/18 Dulaglutide [Trulicity] 0.75 mg SQ DAILY 08/28/18 Linaclotide [Linzess] 290 mcg PO DAILY 08/28/18 Generic Name Dose Route Start Last Admin Trade Name Freq PRN Reason Stop Dose Admin Acetaminophen 650 mg 08/28/18 17:17 08/29/18 17:28 Tylenol - PO 650 mg Q4H PRN Administration PAIN Amiodarone HCl 200 mg 08/29/18 10:00 08/30/18 09:54 Cordarone - PO 200 mg DAILY [facility] Administration Apixaban 5 mg 08/28/18 22:00 08/30/18 23:25 Eliquis - PO 5 mg BID [facility] Administration Aspirin 81 mg 08/29/18 10:00 08/30/18 09:54 Asa - PO 81 mg DAILY [facility] Administration Atorvastatin Calcium 20 mg 08/28/18 22:00 08/30/18 23:25 Lipitor - PO 20 mg HS [facility] Administration Clopidogrel Bisulfate 75 mg 08/29/18 10:00 08/30/18 09:54 Plavix - PO 75 mg DAILY [facility] Administration Insulin Aspart 1 vial 08/28/18 22:00 08/31/18 06:09 Novolog Vial Sliding Scale - SQ Not Given ACHS [facility] Protocol Isosorbide Mononitrate 30 mg 08/29/18 10:00 08/30/18 09:54 Imdur - PO 30 mg DAILY [facility] Administration Losartan Potassium 100 mg 08/29/18 10:00 08/30/18 09:54 Cozaar - PO 100 mg DAILY [facility] Administration Metoprolol Succinate 50 mg/ 75 mg 08/30/18 22:00 08/30/18 23:24 Metoprolol Succinate 25 mg PO 75 mg BID [facility] Administration 2D echo results reviewed ASSESSMENT/PLAN: 77 yom with PMHx of CAD s/p PCI within last 1 year, systolic dysfunction, Afib on eliquis, CKD stage III, HTN, IDDM admitted with progressive dyspnea -Acute diastolic heart failure exacerbation -CAD s/p PCI within last 1 year -Afib on eliquis -CKD stage III -HTN -IDDM Plan: Cardiology input noted. 2D echo noted, improved EF from 2017 Continue lasix 40 mg IV BID for now, monitor renal function. ASA/plavix/eliquis/metoprolol/amiodarone Dispo pending clinical improvement. Plan discussed with patient and nursing in detail, all questions answered.
[2018-08-31 08:42] LABS: ALBUMIN 2.8 g/dl (3.4-5.0); BILIRUBIN,TOTAL 0.9 mg/dL (0.2-1); BLOOD UREA NITROGEN 29.8 mg/dL (7-18); CREATININE 1.5 mg/dL (0.55-1.3); MAGNESIUM 2.2 mg/dL (1.8-2.4); POTASSIUM 3.7 mmol/L (3.5-5.1)
[2018-08-31] MEDS ORDERED: metoPROLOL SUCCINATE 25 MG TAB.SR.24H (FP) ONE (09:08)
[2018-08-31] MEDS: METOPROLOL SUCCINATE 50 MG, METOPROLOL SUCCINATE 25 MG PO SCH (09:24)
[2018-08-31] MEDS: LOSARTAN POTASSIUM 50 MG TABLET (FP) PO SCH (09:25)
[2018-08-31] MEDS: ISOSORBIDE MONONITRATE 30 MG TAB.SR.24H (FP) PO SCH (09:25)
[2018-08-31] MEDS: APIXABAN 5 MG TABLET PO SCH (09:25)
[2018-08-31] MEDS: CLOPIDOGREL BISULFATE 75 MG TABLET (FP) PO SCH (09:25)
[2018-08-31] MEDS: AMIODARONE HCL 200 MG TABLET (FP) PO SCH (09:26)
[2018-08-31] MEDS: ASPIRIN 81 MG CHEWABLE TABLETS PO SCH (09:26)
[2018-08-31 09:30] VITALS: TEMP 98.4
--- NOTE | 2018-08-31 11:55 | PN ---
Progress Note (short form) - Note Progress Note: s: no sob, palps, chest pain, dizziness. wants to go home Current Medications Acetaminophen (Tylenol -) 650 mg PO Q4H PRN PRN Reason: PAIN Last Admin: 08/29/18 17:28 Dose: 650 mg Amiodarone HCl (Cordarone -) 200 mg PO DAILY [facility] Last Admin: 08/31/18 09:26 Dose: 200 mg Apixaban (Eliquis -) 5 mg PO BID [facility] Last Admin: 08/31/18 09:25 Dose: 5 mg Aspirin (Asa -) 81 mg PO DAILY [facility] Last Admin: 08/31/18 09:26 Dose: 81 mg Atorvastatin Calcium (Lipitor -) 20 mg PO HS [facility] Last Admin: 08/30/18 23:25 Dose: 20 mg Clopidogrel Bisulfate (Plavix -) 75 mg PO DAILY [facility] Last Admin: 08/31/18 09:25 Dose: 75 mg Insulin Aspart (Novolog Vial Sliding Scale -) 1 vial SQ [facility]; Protocol Last Admin: 08/31/18 11:31 Dose: 6 units Isosorbide Mononitrate (Imdur -) 30 mg PO DAILY [facility] Last Admin: 08/31/18 09:25 Dose: 30 mg Losartan Potassium (Cozaar -) 100 mg PO DAILY [facility] Last Admin: 08/31/18 09:25 Dose: 100 mg Metoprolol Succinate 50 mg/ (Metoprolol Succinate 25 mg) 75 mg PO BID [facility] Last Admin: 08/31/18 09:24 Dose: 75 mg Vital Signs Period Temp Pulse Resp BP Sys/Mcgrath Pulse Ox Last 24 Hr 97.5 F-98.4 F 65-116 16-20 112-164/59-98 96 Constitutional: Yes: Well Nourished, No Distress, Calm Cardiovascular: Yes: Pulse Irregular, S1, S2. No: JVD, Gallop, Murmur Respiratory: Yes: Regular, CTA Bilaterally. No: Accessory Muscle Use, Rales, Wheezes Extremities: No: Cold Edema: No Neurological: Yes: Alert, Oriented Psychiatric: No: Agitated Labs: CBC, BMP 08/30/18 06:45 08/30/18 06:45 INR, PTT INR 1.37 (0.83-1.09) H 08/28/18 16:00 Assessment/Plan cxr: no chf echo 01/2017: mild-mod red lvef, inf hk, mild dec rv fcn, nl rv size, mild-mod mr, mild tr, mild phtn echo 07/2018 office mod conc LVH, mild-mod impaired LV function EF 40-45%, hypokinesis of basal to apical inferior and inferolateral graves, E/A reversal, La mod dilated, mild AR, mild pulm HTN, mildly dilated asc aorta/aortic arch echo 08/2018 nl LV function, mild conc LVH, EF 55-60%, grade II diastolic dysfunction, mild TR ecg: aflutter, 105, old rbbb tele: afib, HR 100s -> sinus with PACs 70s a/p: 77 m hx dm, htn, syst chf, cad s/p pci several months ago, afib, ckd, here with sob. sob, chronic syst chf: -cxr clear, no JVD on exam -received iv lasix 40 bid here: wt rising, bun/creat worsening. his chf sx's ( sob, pedal edema) resolved, lasix dc'ed. -echo shows nl LV function, improved from prior office echo - euvolemic today - restart home lasix 20 mg PO daily - stable for discharge from cardiac perspective, follow up in office 2-3 weeks htn: -bp controlled -cont home meds cad s/p pci: -recent pci 01/2017, asa was stopped 07/2017 - continue plavix and eliquis - no signs acs here -cont statin, bb, arb, imdur afib/flutter: -aggressive HR control warranted given systolic CHF, EF now improved -on metoprolol succ 50 bid and amio 200 qd at home, was in AF now converted to sinus -metoprolol succinate increased to 75 mg BID, continue -cont eliquis ckd: -? baseline (creat x 1 was 1.8 in 03/06) -as above
--- NOTE | 2018-08-31 12:14 | DS ---
Physical Exam: SUBJECTIVE: Patient seen and examined, breathing improved, no complaints. OBJECTIVE: Vital Signs Period Temp Pulse Resp BP Sys/Mcgrath Pulse Ox Last 24 Hr 97.5 F-98.4 F 65-116 16-20 112-164/59-98 96 Intake & Output 08/28/18 08/29/18 08/30/18 08/31/18 23:59 23:59 23:59 23:59 Intake Total 721 036 6195 Output Total 1900 2650 600 Balance -1780 -2410 900 Weight 190 lb 190 lb 192 lb 191 lb PHYSICAL EXAM GENERAL: lying in bed flat, in no acute distress Neck: soft, supple, no JVD noted Chest: no rales or wheezing, decreased air entry all over Abdomen:Soft, obese, NT Extremities: trace pedal edema CVS:S1s2 irregular Telemetry Afib 80s-100s, reverted to NSR with PACS around 5 AM today LABS Laboratory Results - last 24 hr 08/30/18 08/30/18 08/31/18 17:09 23:21 06:02 WBC RBC Hgb Hct MCV MCH MCHC RDW Plt Count MPV Absolute Neuts (auto) Neutrophils % Lymphocytes % Monocytes % Eosinophils % Basophils % Nucleated RBC % Sodium Potassium Chloride Carbon Dioxide Anion Gap BUN Creatinine Est GFR (CKD-EPI)AfAm Est GFR (CKD-EPI)NonAf POC Glucometer 163 185 141 Random Glucose Calcium Phosphorus Magnesium Total Bilirubin AST ALT Alkaline Phosphatase Total Protein Albumin 08/31/18 08/31/18 08/31/18 06:35 06:35 11:28 WBC 6.4 RBC 5.02 Hgb 14.8 Hct 43.7 MCV 87.0 MCH 29.4 MCHC 33.8 RDW 13.8 Plt Count 278 MPV 8.8 Absolute Neuts (auto) 3.6 Neutrophils % 56.3 Lymphocytes % 28.6 Monocytes % 10.0 Eosinophils % 4.6 H Basophils % 0.5 Nucleated RBC % 0 Sodium 142 Potassium 3.7 Chloride 106 Carbon Dioxide 32 Anion Gap 4 L BUN 29.8 H Creatinine 1.5 H Est GFR (CKD-EPI)AfAm 50.95 Est GFR (CKD-EPI)NonAf 43.96 POC Glucometer 256 Random Glucose 135 H Calcium 9.0 Phosphorus 4.0 Magnesium 2.2 Total Bilirubin 0.9 AST 20 ALT 36 Alkaline Phosphatase 98 Total Protein 6.0 L Albumin 2.8 L 2D echo: LV normal in size, mild concentric LVH, EF 55-60%, grade II diastolic dysfunction, mild aortic sclerosis HOSPITAL COURSE: Date of Admission:08/28/18 Date of Discharge: 08/31/18 Minutes to complete discharge: 40 Discharge Summary Reason For Visit: HEART FAILURE Current Active Problems SYLVIA (acute kidney injury) (Acute) Atrial fibrillation (Acute) CAD (coronary artery disease) (Acute) Heart failure (Acute) Hospital Course: 77 yom with PMHx of CAD s/p PCI within last 1 year, systolic dysfunction, Afib on eliquis, CKD stage III, HTN, IDDM admitted with progressive dyspnea. He was placed on Lasix 40 mg IV BID with improvement. He was noted with atrial fibrillation with HR 80s-100s and his Toprol XL was increased to 75 mg BID. He revered to sinus rhythm. He was seen by cardiology. He had 2D echo with improved EF 55-60% (from 40-45% in 2018) and grade II diastolic dysfunction. His renal function was stable and cr is 1.5 prior to discharge. He will be discharged in stable condition on lasix 20 mg daily and increased metoprolol with outpatient cardiology follow up. Condition: Stable - Instructions Diet, Activity, Other Instructions: You were admitted with congestive heart failure and received intravenous lasix. Your heart rate was noted fast and your metoprolol has been increased. You were seen by cardiology, had repeat 2D echo with improved heart function. MEDICATIONS: Your toprol XL has been increased to 75 mg twice daily (From 50 mg twice daily) (new prescription has been provided) Continue your other home medications as before including lasix at 20 mg daily INSTRUCTIONS: Weigh yourself daily and notify your doctor if weight gain > 3 lbs in 2 days. FOLLOW UP: With Dr. Clinton in 1 week With your keyboard operator in 2-3 weeks If you notice trouble breathing, heart racing, dizziness, chest pain or new concerns, please call 911 or come to the ED. Referrals: Kenneth Louise MD [Staff Physician] - Doron Clinton MD [Primary Care Provider] - Disposition: HOME - Home Medications Comprehensive Discharge Medication List: Ambulatory Orders Losartan Potassium 100 mg PO DAILY 10/24/15 Atorvastatin Ca [Lipitor] 20 mg PO HS 02/07/17 Amiodarone HCl 200 mg PO DAILY 03/30/18 Apixaban [Eliquis -] 5 mg PO BID 03/30/18 Aspirin [ASA -] 81 mg PO DAILY 03/30/18 Clopidogrel Bisulfate [Plavix -] 75 mg PO DAILY 03/30/18 Fluticasone Prop 0.05% Nasal [Flonase -] 1 - 2 spray NS DAILY 03/30/18 Furosemide [Lasix -] 20 mg PO DAILY 03/30/18 Isosorbide Mononitrate [Isosorbide Mononitrate ER] 30 mg PO DAILY 03/30/18 Meclizine HCl [Antivert -] 12.5 mg PO TID #21 tablet 03/30/18 Dulaglutide [Trulicity] 0.75 mg SQ DAILY 08/28/18 Linaclotide [Linzess] 290 mcg PO DAILY 08/28/18 Metoprolol Succinate [Toprol XL -] 75 mg PO BID #180 tab.sr.24h 08/31/18 This patient is new to me today: Yes Date on this admission: 08/31/18 Emergency Visit: Yes ED Registration Date: 08/28/18 Care time: The patient presented to the Emergency Department on the above date and was hospitalized for further evaluation of their emergent condition. Critical Care patient: No - Discharge Referral Referred to [facility] Med P.C.: No
[2018-08-31 13:04] VITALS: BP 128/66; PULSE 76
[2018-09-01] MEDS ORDERED: FUROSEMIDE 20 MG TABLET (FP) PO SCH (10:00)
== END 2018-08-31 13:29 | disposition home or self-care (01) | DRG 682 ==
LOC: JER 14:19 → JERBED 17:06 → J4S 08-29 18:38
PROVIDERS: ADMIT Internal Medicine; ATTEND Hospitalist
DX: N17.9 Acute kidney failure, unspecified (principal); I50.23 Acute on chronic systolic (congestive) heart failure; I45.2 Bifascicular block; I48.92 Unspecified atrial flutter; I11.0 Hypertensive heart disease with heart failure; I48.91 Unspecified atrial fibrillation; I34.0 Nonrheumatic mitral (valve) insufficiency; I45.10 Unspecified right bundle-branch block; I25.10 Atherosclerotic heart disease of native coronary artery without angina pectoris; I25.2 Old myocardial infarction; Z95.5 Presence of coronary angioplasty implant and graft; G50.0 Trigeminal neuralgia; Z87.891 Personal history of nicotine dependence
CPT/HCPCS: 36415; 71046-TC-FY; 80048; 80053; 81003; 82550; 82553; 82962; 83735; 83880; 84100; 84484; 85025; 85610; 93005; 93010; 93306-TC; 99285-25

== ENCOUNTER 2018-10-08 16:39 | Inpatient (IN) | payer BC, OTHER ==
--- NOTE | 2018-10-08 16:45 | PDOC ---
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
[2018-10-08 17:35] LABS: BASO % 0.5 % (0-2.0); EOS % 2.4 % (0-4.5); HEMATOCRIT 45.6 % (35.4-49); LYMPH % 21.4 % (8-40); MCH 29.3 pg (25.7-33.7); MCHC 32.9 g/dl (32.0-35.9); MEAN CELL VOLUME 89.1 fl (80-96); MEAN PLT VOLUME 9.5 fl (7.5-11.1); MONO % 7.8 % (3.8-10.2); NEUT % 67.9 % (42.8-82.8); PLATELET COUNT 209 K/MM3 (134-434); RBC 5.12 M/mm3 (4.00-5.60); RDW 14.7 % (11.9-15.9); WHITE BLOOD COUNT 6.4 K/mm3 (4.0-10.0)
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
[2018-10-08 18:00] LABS: INR 1.37 (0.83-1.09); PROTHROMBIN TIME (PATIENT) 16.2 SEC (9.7-13.0)
[2018-10-08 18:04] LABS: ALBUMIN 3.2 g/dl (3.4-5.0); BILIRUBIN,TOTAL 0.8 mg/dL (0.2-1); BLOOD UREA NITROGEN 20.4 mg/dL (7-18); CALCIUM 9.1 mg/dL (8.5-10.1); CREATININE 1.5 mg/dL (0.55-1.3); N-TERMINAL BNP 2223.8 pg/ml (5-450); POTASSIUM 4.2 mmol/L (3.5-5.1)
[2018-10-08] MEDS ORDERED: FUROSEMIDE 40 MG/4 ML INJECTABLE VIAL IVPUSH ONE (18:10)
[2018-10-08] MEDS ORDERED: FUROSEMIDE 40 MG/4 ML INJECTABLE VIAL ONE (18:26)
--- NOTE | 2018-10-08 19:02 | PDOC ---
Documentation entered by Christiano Chakraborty SCRIBE, acting as scribe for Nilson Fisher MD. Nilson Fisher MD: This documentation has been prepared by the Palmer thapa Elijah, SCRIBE, under my direction and personally reviewed by me in its entirety. I confirm that the documentation accurately reflects all work, treatment, procedures, and medical decision making performed by me. Attending Attestation - Resident Resident Name: CollinconorRigoberto - ED Attending Attestation I have performed the following: I have examined & evaluated the patient, The case was reviewed & discussed with the resident, I agree w/resident's findings & plan, Exceptions are as noted - HPI HPI: 10/08/18 18:15 Patient is a 77 year old male with a significant past medical history of CAD s/ p PCI within last 1 year, CHF, Afib on eliquis, CKD stage III, HTN, and IDDM who presents to the ED with acute on chronic dyspnea on exertion occurring x6 hours ago. Patient notes that he has had persistent SOB over the last few months but was worsened today when he was moving a couch. Patient associates some b/l leg swelling for the last week. He reports chronic chest tightness that has not changed in nature or severity recently. Patient did not take his medication this morning but has been complaint with his meds including his lasix and eliquis recently. Denies fevers, chills, nausea, vomiting. DEnies dizziness, focal weakness/numbness, headache. Denies rashes, urinary sxs. Patiently was recently discharged for CHF exacerbation on 08/31. Allergies: NKA PCP: Dr. Clinton Construction Ironworker Helper: Dr. Rossi - Physicial Exam PE: 10/08/18 18:45 Agree with Resident's Exam. - Medical Decision Making 10/08/18 18:53 78yo M with MMP including CHF, CAD presents to the ED with acute on chronic dyspnea since pushing a couch this morning Vitals with elevated BP to 144/106 and tachycardia to 111 EKG with afib with RVR Exam with b/l rales and LE edema, all most consistent with CHF exacerbation W/u significant for congestion on XR, elevated BNP confirming this ACS also on ddx givenexertional component of sxs this AM Unlikely PE as pt is compliant with AC and is not having new chest pain, unilateral leg swelling, or immobility Heart Score/ECG Review #1 10/08/18 18:55 EKG read and int by me: Afib with RVR, rate 120. +RBBB, LAFB, some ST depressions V4-V6 which are a bit more depressed than EKG from 08/28/18. No other sig changes.
--- NOTE | 2018-10-08 19:40 | HP ---
CHIEF COMPLAINT: shortness of breath PCP:Dr. Contreras HISTORY OF PRESENT ILLNESS: 78 yo M PMH of HTN, DM, Afib on eliquis, CKD stage 3, CAD s/p PCI, HFpEF presented to ED for SOB x1 day. Pt states he was moving his bed this morning when he experienced sudden onset SOB. Pt denies CP, palpitations. Pt states over the past few weeks he has not been able to walk as much since he gets short of breath. Pt denies orthopnea. Pt states that he had similar sxs last month when he was admitted at [facility] for CHF exacerbation. Pt states he did not take his medications this morning but normally is compliant. Pt states since he has been in the ED his symptoms have improved. Pt states he has a productive cough for a few weeks. Pt states today he noticed blurry vision. He denies headache, dizziness. ER course was notable for: (1) LAsix 40 IV (2)CXray (3) Recent Travel: recent travel to [place] PAST MEDICAL HISTORY: as stated above PAST SURGICAL HISTORY: Laminectomy, stent Social History: Smoking:quit in 1963, 20 pk years Alcohol:denies Drugs: denies Family History: Mother, Father, Brother , Sister diabetes. other brother also has cardiac problems Allergies No Known Allergies Allergy (Verified 10/08/18 16:44) HOME MEDICATIONS: Home Medications Medication Instructions Recorded Losartan Potassium 100 mg PO DAILY 10/24/15 Atorvastatin Ca [Lipitor] 20 mg PO HS 02/07/17 Amiodarone HCl 200 mg PO DAILY 03/30/18 Apixaban [Eliquis -] 5 mg PO BID 03/30/18 Aspirin [ASA -] 81 mg PO DAILY 03/30/18 Clopidogrel Bisulfate [Plavix -] 75 mg PO DAILY 03/30/18 Fluticasone Prop 0.05% Nasal 1 - 2 spray NS DAILY 03/30/18 [Flonase -] Furosemide [Lasix -] 20 mg PO DAILY 03/30/18 Isosorbide Mononitrate [Isosorbide 30 mg PO DAILY 03/30/18 Mononitrate ER] Meclizine HCl [Antivert -] 12.5 mg PO TID #21 tablet 03/30/18 Dulaglutide [Trulicity] 0.75 mg SQ DAILY 08/28/18 Linaclotide [Linzess] 290 mcg PO DAILY 08/28/18 Metoprolol Succinate [Toprol XL -] 75 mg PO BID #180 tab.sr.24h 08/31/18 REVIEW OF SYSTEMS CONSTITUTIONAL: Present: weakness, 20 pound unintentional weight gain over 4 weeks , decreased appetite Absent: fever, chills, diaphoresis, malaise HEENT: Present: blurred vision Absent: rhinorrhea, nasal congestion, throat pain, throat swelling, difficulty swallowing, mouth swelling, ear pain, eye pain, CARDIOVASCULAR: Absent: chest pain, syncope, palpitations, irregular heart rate, lightheadedness , peripheral edema RESPIRATORY: Present: productive cough, shortness of breath, dyspnea on exertion Absent: orthopnea, wheezing, stridor, hemoptysis GASTROINTESTINAL: Present: diarrhea Absent: abdominal pain, abdominal distension, nausea, vomiting, constipation, melena, hematochezia GENITOURINARY: Absent: dysuria, frequency, urgency, hesitancy, hematuria, flank pain, genital pain MUSCULOSKELETAL: Absent: myalgia, arthralgia, joint swelling, back pain, neck pain SKIN: Absent: rash, itching, pallor HEMATOLOGIC/IMMUNOLOGIC: Absent: easy bleeding, easy bruising, lymphadenopathy, frequent infections ENDOCRINE: Present: unexplained weight gain Absent: unexplained weight loss, heat intolerance, cold intolerance NEUROLOGIC: Absent: headache, focal weakness or paresthesias, dizziness, unsteady gait, seizure, mental status changes, bladder or bowel incontinence PSYCHIATRIC: Absent: anxiety, depression, suicidal or homicidal ideation, hallucinations. PHYSICAL EXAMINATION Vital Signs - 24 hr 10/08/18 16:42 Temperature 97.5 F L Pulse Rate 111 H Respiratory 18 Rate Blood Pressure 142/106 H O2 Sat by Pulse 98 Oximetry (%) GENERAL: Awake, alert, and fully oriented, in no acute distress. HEAD: Normal with no signs of trauma. EYES: Pupils equal, round and reactive to light, extraocular movements intact, sclera anicteric, conjunctiva clear. No lid lag. EARS, NOSE, THROAT: Ears normal, nares patent, oropharynx clear without exudates. Moist mucous membranes. NECK: Normal range of motion, supple without lymphadenopathy, JVD, or masses. LUNGS: Breath sounds equal, clear to auscultation bilaterally. No wheezes, and no crackles. No accessory muscle use. HEART: tachycardic and irregular rhythm, normal S1 and S2 without murmur, rub or gallop. ABDOMEN: Soft, nontender, not distended, normoactive bowel sounds, no guarding, no rebound, mass in LLQ . No hepatomegaly or splenomegaly. MUSCULOSKELETAL: Normal range of motion at all joints. No bony deformities or tenderness. No CVA tenderness. UPPER EXTREMITIES: 2+ pulses, warm, well-perfused. No cyanosis. No clubbing. No peripheral edema. LOWER EXTREMITIES: 2+ pulses, warm, No calf tenderness. No peripheral edema. pt has abrasions on b/l le NEUROLOGICAL: Cranial nerves II-XII intact. Normal speech. Normal gait. PSYCHIATRIC: Cooperative. Good eye contact. Appropriate mood and affect. SKIN: Warm, dry, normal turgor, no rashes or lesions noted, normal capillary refill. Laboratory Results - last 24 hr 10/08/18 10/08/18 10/08/18 16:59 16:59 16:59 WBC 6.4 RBC 5.12 Hgb 15.0 Hct 45.6 MCV 89.1 MCH 29.3 MCHC 32.9 RDW 14.7 Plt Count 209 D MPV 9.5 Absolute Neuts (auto) 4.3 Neutrophils % 67.9 D Lymphocytes % 21.4 D Monocytes % 7.8 Eosinophils % 2.4 Basophils % 0.5 Nucleated RBC % 0 PT with INR 16.20 H INR 1.37 H Sodium 144 Potassium 4.2 Chloride 107 Carbon Dioxide 31 Anion Gap 6 L BUN 20.4 H Creatinine 1.5 H Est GFR (CKD-EPI)AfAm 50.59 Est GFR (CKD-EPI)NonAf 43.65 Random Glucose 243 H Calcium 9.1 Total Bilirubin 0.8 AST 32 ALT 33 Alkaline Phosphatase 113 Creatine Kinase 335 H Creatine Kinase Index 1.4 CK-MB (CK-2) 4.8 H Troponin I 0.03 B-Natriuretic Peptide 2223.8 H Total Protein 7.0 Albumin 3.2 L ASSESSMENT/PLAN: 78 yo M PMH of HTN, DM, Afib on eliquis, CKD stage 3, CAD s/p PCI, HFpEF presented to ED for SOB x1 day. Pt states he was moving his bed this morning when he experienced sudden onset SOB. Pt is admitted for acute on chronic HFpEF. Acute on Chronic HFpEF -CXR reviewed by me, improved from 08/2018. still shows some congestion -s/p IV Lasix 40 -c/w IV Lasix 20 in am , consider switching back to home dose 20 mg PO 09/09 -pt is saturating well on RA -BNP 2223, prior admission 3551 -pt follows up with Dr. Rossi -Echo 09/03 reviewed , EF 55-60%, grade II -c/w losartan 100mg, Toprol XL 75 BID -Lopressor 25 mg po once AFib -c/w eliquis -c/w tele monitoring -c/w Amiodarone 200 mg daily CAD s/pPCI -PCI <1 yr -c/w asa , Plavix, lipitor CKD -pt at baseline -avoid nephrotoxic agents DM -BGM -ISS HTN -c/w home meds F/E/N -diabetic/ low sodium diet DVTppx: on eliquis Dispo: monitor on tele until medically optimized Visit type - Emergency Visit Emergency Visit: Yes ED Registration Date: 10/08/18 Care time: The patient presented to the Emergency Department on the above date and was hospitalized for further evaluation of their emergent condition. - New Patient This patient is new to me today: Yes Date on this admission: 10/09/18 - Critical Care Critical Care patient: No ATTENDING PHYSICIAN STATEMENT I saw and evaluated the patient. I reviewed the resident's note and discussed the case with the resident. I agree with the resident's findings and plan as documented. SUBJECTIVE: OBJECTIVE: ASSESSMENT AND PLAN:
[2018-10-08] MEDS: METOPROLOL SUCCINATE 50 MG, METOPROLOL SUCCINATE 25 MG PO SCH (22:30)
[2018-10-08] MEDS ORDERED: ATORVASTATIN CA 40 MG TABLET (FP) ONE (22:30)
[2018-10-08] MEDS ORDERED: APIXABAN 5 MG TABLET PO ONE (22:30)
[2018-10-08] MEDS: APIXABAN 5 MG TABLET PO SCH (22:30)
[2018-10-08] MEDS: ATORVASTATIN CA 40 MG TABLET (FP) PO SCH (22:30)
[2018-10-08] MEDS: INSULIN SLIDING SCALE (NOVOLOG) 1 VIAL SQ SCH (22:41)
[2018-10-09] MEDS ORDERED: METOPROLOL TARTRATE 25 MG TABLET (FP) PO ONE (00:38)
--- NOTE | 2018-10-09 02:03 | PN ---
Teaching Attending Note Name of Resident: Avis Puentes ATTENDING PHYSICIAN STATEMENT I saw and evaluated the patient. I reviewed the resident's note and discussed the case with the resident. I agree with the resident's findings and plan as documented. Seen and examined; please refer to resident note for further historical information. Briefly, this is a 78 y/o male presenting to the hospital with a CC of SOB with exertion; he has had these sx worsening for about a week becoming SOB after only a few steps. He has baseliner HFpEF and does not normally get this severity of issues but has baseline very mild (~NYHA1). He cannot tell if his hard has been going fast as he does not percieve RVR. He presents with elevated BNP, afib with RVR. He was given lasix and metoprolol and has subsequentially improved. He endorses compliance with his home medication. His symptoms are improved when I saw him and he denies any dyspnea. VS, labs, imaging reviewed NAD, AAO, resting in bed NC AT EOMI PERRLA RRR s1/2 Lungs CTAB, w/ sym exp NT ND +BS CN2-12 wnl, no fnd EKG reviewed CXR reviewed ASSESSMENT AND PLAN: Patient presents with CHF exacerbation likely 2/2 rate-related issues with Afib w/ RVR exacerbating HFpEF due to underlying diastolic dysfunction. # CHF Exacerbation (? rate related-may have been RVR for several days given sx worsening for ~1 week) -IV lasix from PO, IS and Os, continue metoprolol. Given extra 25mg overnight and may need to increase his home dose prior to DC. Continue NOAC. # Afib eith RVR -NOAC and rate control (may need uptitrated, see above) Full Code
[2018-10-09] MEDS: INSULIN SLIDING SCALE (NOVOLOG) 1 VIAL SQ SCH ×4 (06:31→23:21)
[2018-10-09 07:19] LABS: HEMATOCRIT 44.5 % (35.4-49); HEMOGLOBIN 14.8 GM/dL (11.7-16.9); MCH 29.4 pg (25.7-33.7); MCHC 33.3 g/dl (32.0-35.9); MEAN CELL VOLUME 88.4 fl (80-96); MEAN PLT VOLUME 9.5 fl (7.5-11.1); PLATELET COUNT 212 K/MM3 (134-434); RBC 5.04 M/mm3 (4.00-5.60); RDW 14.6 % (11.9-15.9); WHITE BLOOD COUNT 5.5 K/mm3 (4.0-10.0)
[2018-10-09 07:29] LABS: BLOOD UREA NITROGEN 20.1 mg/dL (7-18); CALCIUM 9.3 mg/dL (8.5-10.1); CREATININE 1.4 mg/dL (0.55-1.3); POTASSIUM 4.3 mmol/L (3.5-5.1)
--- NOTE | 2018-10-09 07:47 | PN ---
Progress Note (short form) - Note Progress Note: breathing improved but above baseline. denies CP, SOB, fever, chills, cough, N/V /C/D, orthopnea. claims medication compliance. no recent changes to his medication Current Medications Generic Name Dose Route Start Last Admin Trade Name Kevin PRN Reason Stop Dose Admin Amiodarone HCl 200 mg 10/09/18 10:00 Cordarone - PO DAILY AKBAR Apixaban 5 mg 10/08/18 22:00 10/08/18 22:30 Eliquis - PO 5 mg BID AKBAR Administration Aspirin 81 mg 10/09/18 10:00 Ecotrin - PO DAILY AKBAR Atorvastatin Calcium 40 mg 10/08/18 22:00 10/08/18 22:30 Lipitor - PO 40 mg HS AKBAR Administration Clopidogrel Bisulfate 75 mg 10/09/18 10:00 Plavix - PO DAILY AKBAR Fluticasone Propionate 2 spray 10/09/18 10:00 Flonase - NS DAILY AKBAR Furosemide 20 mg 10/09/18 10:00 Lasix Injection - IVPUSH DAILY [facility] Furosemide 20 mg 10/10/18 10:00 Lasix - PO DAILY [facility] Insulin Aspart 1 vial 10/08/18 22:00 10/09/18 06:31 Novolog Vial Sliding Scale - SQ Not Given ACHS [facility] Protocol Losartan Potassium 100 mg 10/09/18 10:00 Cozaar - PO DAILY [facility] Metoprolol Succinate 50 mg/ 75 mg 10/08/18 22:00 10/08/18 22:30 Metoprolol Succinate 25 mg PO 75 mg BID AKBAR Administration Last Vital Signs Temp Pulse Resp BP Pulse Ox 97.8 F 102 H 16 124/93 98 10/08/18 22:12 10/09/18 05:27 10/09/18 05:27 10/09/18 05:27 10/09/18 05:27 Intake & Output 10/06/18 10/07/18 10/08/18 10/09/18 23:59 23:59 23:59 23:59 Weight 204 lb General NAD CV S1 S2 irreg + murmur Lungs decreased bases B/L ABdomen no pedal edema Extremities trace pitting edema CBCD WBC 5.5 K/mm3 (4.0-10.0) 10/09/18 06:00 RBC 5.04 M/mm3 (4.00-5.60) 10/09/18 06:00 Hgb 14.8 GM/dL (11.7-16.9) 10/09/18 06:00 Hct 44.5 % (35.4-49) 10/09/18 06:00 MCV 88.4 fl (80-96) 10/09/18 06:00 MCHC 33.3 g/dl (32.0-35.9) 10/09/18 06:00 RDW 14.6 % (11.9-15.9) 10/09/18 06:00 Plt Count 212 K/MM3 (134-434) 10/09/18 06:00 MPV 9.5 fl (7.5-11.1) 10/09/18 06:00 CMP Sodium 144 mmol/L (136-145) 10/09/18 06:00 Potassium 4.3 mmol/L (3.5-5.1) 10/09/18 06:00 Chloride 107 mmol/L (98-107) 10/09/18 06:00 Carbon Dioxide 30 mmol/L (21-32) 10/09/18 06:00 Anion Gap 7 MMOL/L (8-16) L 10/09/18 06:00 BUN 20.1 mg/dL (7-18) H 10/09/18 06:00 Creatinine 1.4 mg/dL (0.55-1.3) H 10/09/18 06:00 Random Glucose 172 mg/dL (74-106) H 10/09/18 06:00 Calcium 9.3 mg/dL (8.5-10.1) 10/09/18 06:00 Total Bilirubin 0.8 mg/dL (0.2-1) 10/08/18 16:59 AST 32 U/L (15-37) 10/08/18 16:59 ALT 33 U/L (13-61) 10/08/18 16:59 Alkaline Phosphatase 113 U/L (45-117) 10/08/18 16:59 Total Protein 7.0 g/dl (6.4-8.2) 10/08/18 16:59 Albumin 3.2 g/dl (3.4-5.0) L 10/08/18 16:59 CARDIAC ENZYMES Creatine Kinase 335 U/L (26-308) H 10/08/18 16:59 Troponin I 0.04 ng/ml (0.00-0.05) 10/08/18 22:38 A/P 78yo M with PMH afib on eliquis, HTN, DM, CKD stage III, CAD s/p PCI and systolic CHF presented with SOB for 1 day and missed medications and found to be in volume overload with HTN urgency 1. Acute on chronic systolic CHF-clinically improved. on lasix IV. can consider switching to po tomorrow. titrate up medications as hemodynamics permit. may be a candidate for entresto as outpatient due to frequent hospitalizations and heart class III. monitor electrolytes. daily weights. optimize medications. cardio consult 2. tropinemia- due to demand. trop 0.03 to 0.04. last stress test here was 2016. unsure if he would benefit from one in vs outpatient 3. HTN urgency-improved with re-initiation of home medications. titrate to optimize control 4. afib on eliquis- on amio. unclear if necessary at this time as he remains in afib. unsure how long been started. cardio consulted to discuss. on eliquis 5. CKD stage III- at baseline 6. CAD s/p PCI- on DUAPT. beta sunshine, statin, ARB 7. DVT ppx- eliquis Visit type - Emergency Visit Emergency Visit: Yes ED Registration Date: 10/08/18 Care time: The patient presented to the Emergency Department on the above date and was hospitalized for further evaluation of their emergent condition. - New Patient This patient is new to me today: Yes Date on this admission: 10/09/18 - Critical Care Critical Care patient: No - Discharge Referral Referred to [facility] Med P.C.: No
[2018-10-09] MEDS ORDERED: FUROSEMIDE 20 MG TABLET (FP) PO SCH (10:00)
[2018-10-09] MEDS ORDERED: FUROSEMIDE 40 MG/4 ML INJECTABLE VIAL IVPUSH SCH (10:00)
[2018-10-09] MEDS: LOSARTAN POTASSIUM 50 MG TABLET (FP) PO SCH (10:25)
[2018-10-09] MEDS: AMIODARONE HCL 200 MG TABLET (FP) PO SCH (10:25)
[2018-10-09] MEDS: APIXABAN 5 MG TABLET PO SCH ×2 (10:26→23:18)
[2018-10-09] MEDS: FLUTICASONE PROP 0.05% 16 GM NASAL SPRAY NS SCH (10:26)
[2018-10-09] MEDS: ASPIRIN COATED 81 MG TABLET.EC PO SCH (10:26)
[2018-10-09] MEDS: CLOPIDOGREL BISULFATE 75 MG TABLET (FP) PO SCH (10:27)
[2018-10-09] MEDS: METOPROLOL SUCCINATE 50 MG, METOPROLOL SUCCINATE 25 MG PO SCH ×2 (10:48→23:26)
[2018-10-09] MEDS ORDERED: INSULIN (NOVOLOG) ASPART 100 UNITS/ML 10ML VIAL ONE (14:07)
--- NOTE | 2018-10-09 16:03 | EKG ---
Test Reason : Blood Pressure : / mmHG Vent. Rate : 120 BPM Atrial Rate : 131 BPM P-R Int : 000 ms QRS Dur : 158 ms QT Int : 412 ms P-R-T Axes : 000 -55 058 degrees QTc Int : 582 ms ATRIAL FIBRILLATION WITH RAPID VENTRICULAR RESPONSE RIGHT BUNDLE BRANCH BLOCK LEFT ANTERIOR FASCICULAR BLOCK BIFASCICULAR BLOCK T WAVE ABNORMALITY, CONSIDER LATERAL ISCHEMIA ABNORMAL ECG WHEN COMPARED WITH ECG OF 28-AUG-2018 14:14, NO SIGNIFICANT CHANGE WAS FOUND Confirmed by ANNETTE PUCKETT, MINNA ([id number]) on 10/09/2018 4:02:58 PM Referred By: Confirmed By:MINNA BRYANT MD
[2018-10-09] MEDS: ATORVASTATIN CA 40 MG TABLET (FP) PO SCH (23:18)
[2018-10-09] MEDS ORDERED: metoPROLOL SUCCINATE 25 MG TAB.SR.24H (FP) ONE (23:25)
[2018-10-10 00:19] VITALS: BMI 27.9
[2018-10-10] MEDS: INSULIN SLIDING SCALE (NOVOLOG) 1 VIAL SQ SCH ×4 (06:08→22:46)
[2018-10-10] MEDS ORDERED: metoPROLOL SUCCINATE 25 MG TAB.SR.24H (FP) ONE ×2 (09:23→20:12)
[2018-10-10] MEDS: ASPIRIN COATED 81 MG TABLET.EC PO SCH (09:50)
[2018-10-10] MEDS: CLOPIDOGREL BISULFATE 75 MG TABLET (FP) PO SCH (09:50)
[2018-10-10] MEDS: AMIODARONE HCL 200 MG TABLET (FP) PO SCH (09:50)
[2018-10-10] MEDS: METOPROLOL SUCCINATE 50 MG, METOPROLOL SUCCINATE 25 MG PO SCH ×2 (09:50→22:46)
[2018-10-10] MEDS: LOSARTAN POTASSIUM 50 MG TABLET (FP) PO SCH (09:50)
[2018-10-10] MEDS: APIXABAN 5 MG TABLET PO SCH ×2 (09:50→22:46)
[2018-10-10] MEDS ORDERED: FUROSEMIDE 20 MG TABLET (FP) PO SCH (10:00)
--- NOTE | 2018-10-10 11:00 | PN ---
Physical Exam: SUBJECTIVE: Patient seen and examined. No acute events overnight, some PVCs noted on tele. Denies CP/ SOB/ orthopnea (pt was lying flat comfortably during interview this morning)/ fevers/ chills/ N/V/D. OBJECTIVE: Vital Signs Period Temp Pulse Resp BP Sys/Mcgrath Pulse Ox Last 24 Hr 97.9 F-98.4 F 67-96 14-20 127-144/73-97 95-99 GENERAL: The patient is awake, alert, and fully oriented, in no acute distress. HEENT: NCAT. No JVD. LUNGS: CTABL. No incr work of breathing. No wheezing. HEART: Regular rate and rhythm, S1, S2 heard. + murmur. ABDOMEN: Soft, nontender, nondistended, normoactive bowel sounds, no guarding. EXTREMITIES: 2+ pulses, warm, well-perfused, 1+ pitting edema b/l LE Laboratory Results - last 24 hr 10/09/18 10/09/18 10/09/18 14:01 16:58 23:20 POC Glucometer 421 200 213 10/10/18 05:38 POC Glucometer 159 Active Medications Generic Name Dose Route Start Last Admin Trade Name Freq PRN Reason Stop Dose Admin Amiodarone HCl 200 mg 10/09/18 10:00 10/10/18 09:50 Cordarone - PO 200 mg DAILY AKBAR Administration Apixaban 5 mg 10/08/18 22:00 10/10/18 09:50 Eliquis - PO 5 mg BID AKBAR Administration Aspirin 81 mg 10/09/18 10:00 10/10/18 09:50 Ecotrin - PO 81 mg DAILY AKBAR Administration Atorvastatin Calcium 40 mg 10/08/18 22:00 10/09/18 23:18 Lipitor - PO 40 mg HS AKBAR Administration Clopidogrel Bisulfate 75 mg 10/09/18 10:00 10/10/18 09:50 Plavix - PO 75 mg DAILY AKBAR Administration Fluticasone Propionate 2 spray 10/09/18 10:00 10/09/18 10:26 Flonase - NS Not Given DAILY AKBAR Furosemide 20 mg 10/10/18 10:00 10/10/18 09:50 Lasix - PO 20 mg DAILY AKBAR Administration Insulin Aspart 1 vial 10/08/18 22:00 10/10/18 06:08 Novolog Vial Sliding Scale - SQ Not Given ACHS AKBAR Protocol Losartan Potassium 100 mg 10/09/18 10:00 10/10/18 09:50 Cozaar - PO 100 mg DAILY AKBAR Administration Metoprolol Succinate 50 mg/ 75 mg 10/08/18 22:00 10/10/18 09:50 Metoprolol Succinate 25 mg PO 75 mg BID AKBAR Administration ASSESSMENT/PLAN: 78 y.o. M PMH HTN, DM, A-fib on Eliquis, CKD stage 3, CAD s/p PCI, HFpEF presented for SOB x day and productive cough. #Acute on chronic diastolic heart failure -A-fib w/ RVR on adm, now NSR -C/w Lasix, switched to PO 40mg daily -C/w Losartan 100mg PO daily; no Entresto @ this time as LV fxn is normal -Daily weights -Cardio (Dr. Rossi) following #Tropinemia -F/u nuclear stress test tomorrow -trop #1 0.03, #2 0.04 -Likely 2/2 demand #HTN -Metoprolol succinate 75mg PO BID -Losartan 100mg PO daily -Imdur 30mg PO daily #DM -Holding home meds -ISS -BGMs #A-fib -C/w Eliquis 5mg PO BID -C/w Amiodarone 200mg PO daily #CKD stage 3 -monitor renal labs #CAD s/p PCI -C/w Plavix, metoprolol, atorvastatin, losartan #FEN -No standing fluids -Trend lytes -Diabetic diet #DVT PPX -On eliquis Visit type - Emergency Visit Emergency Visit: No - New Patient This patient is new to me today: No - Critical Care Critical Care patient: No ATTENDING PHYSICIAN STATEMENT I saw and evaluated the patient. I reviewed the resident's note and discussed the case with the resident. I agree with the resident's findings and plan as documented. SUBJECTIVE: OBJECTIVE: ASSESSMENT AND PLAN:
--- NOTE | 2018-10-10 11:43 | CON.CARD ---
Cardiology Consult (text) - Consultation Consultation Note: cc: sob hpi: 78 m hx dm, htn, diastolic chf, cad s/p pci several months ago, afib, ckd , here with sob. Past week has noticed progressively worsening tobar. No cp palps dizzy loc pnd orthopnea. Mild edema. Got iv lasix here and feeling better. Sees me for cardio pmh: per hpi psh: back surgery social: no tob fam: no premature cad ros: per hpi; all others nl meds: Home Medications Medication Instructions Recorded Losartan Potassium 100 mg PO DAILY 10/24/15 Atorvastatin Ca [Lipitor] 20 mg PO HS 02/07/17 Amiodarone HCl 200 mg PO DAILY 03/30/18 Apixaban [Eliquis -] 5 mg PO BID 03/30/18 Aspirin [ASA -] 81 mg PO DAILY 03/30/18 Clopidogrel Bisulfate [Plavix -] 75 mg PO DAILY 03/30/18 Fluticasone Prop 0.05% Nasal 1 - 2 spray NS DAILY 03/30/18 [Flonase -] Furosemide [Lasix -] 20 mg PO DAILY 03/30/18 Isosorbide Mononitrate [Isosorbide 30 mg PO DAILY 03/30/18 Mononitrate ER] Meclizine HCl [Antivert -] 12.5 mg PO TID #21 tablet 03/30/18 Dulaglutide [Trulicity] 0.75 mg SQ DAILY 08/28/18 Linaclotide [Linzess] 290 mcg PO DAILY 08/28/18 Metoprolol Succinate [Toprol XL -] 75 mg PO BID #180 tab.sr.24h 08/31/18 Melatonin/Pyridoxine HCl (B6) 1 each PO PRN 10/09/18 [Melatonin 3 mg Tablet] pe: Vital Signs Period Temp Pulse Resp BP Sys/Mcgrath Pulse Ox Last 24 Hr 97.9 F-98.4 F 67-96 14-20 127-144/73-97 95-99 nad no jvd irreg, s1s2 no mrg cta bl nl eff aao3 trace le edema bl, no c/c abd nt nd pos bs no jaundice diaphoresis pos pt dp no cartoid bruits Laboratory Last Values WBC 5.5 K/mm3 (4.0-10.0) 10/09/18 06:00 RBC 5.04 M/mm3 (4.00-5.60) 10/09/18 06:00 Hgb 14.8 GM/dL (11.7-16.9) 10/09/18 06:00 Hct 44.5 % (35.4-49) 10/09/18 06:00 MCV 88.4 fl (80-96) 10/09/18 06:00 MCH 29.4 pg (25.7-33.7) 10/09/18 06:00 MCHC 33.3 g/dl (32.0-35.9) 10/09/18 06:00 RDW 14.6 % (11.9-15.9) 10/09/18 06:00 Plt Count 212 K/MM3 (134-434) 10/09/18 06:00 MPV 9.5 fl (7.5-11.1) 10/09/18 06:00 Absolute Neuts (auto) 4.3 K/mm3 (1.5-8.0) 10/08/18 16:59 Neutrophils % 67.9 % (42.8-82.8) D 10/08/18 16:59 Lymphocytes % 21.4 % (8-40) D 10/08/18 16:59 Monocytes % 7.8 % (3.8-10.2) 10/08/18 16:59 Eosinophils % 2.4 % (0-4.5) 10/08/18 16:59 Basophils % 0.5 % (0-2.0) 10/08/18 16:59 Nucleated RBC % 0 % (0-0) 10/08/18 16:59 PT with INR 16.20 SEC (9.7-13.0) H 10/08/18 16:59 INR 1.37 (0.83-1.09) H 10/08/18 16:59 Sodium 144 mmol/L (136-145) 10/09/18 06:00 Potassium 4.3 mmol/L (3.5-5.1) 10/09/18 06:00 Chloride 107 mmol/L (98-107) 10/09/18 06:00 Carbon Dioxide 30 mmol/L (21-32) 10/09/18 06:00 Anion Gap 7 MMOL/L (8-16) L 10/09/18 06:00 BUN 20.1 mg/dL (7-18) H 10/09/18 06:00 Creatinine 1.4 mg/dL (0.55-1.3) H 10/09/18 06:00 Est GFR (CKD-EPI)AfAm 54.99 10/09/18 06:00 Est GFR (CKD-EPI)NonAf 47.45 10/09/18 06:00 POC Glucometer 246 UNITS (80-120) 10/10/18 11:15 Random Glucose 172 mg/dL (74-106) H 10/09/18 06:00 Calcium 9.3 mg/dL (8.5-10.1) 10/09/18 06:00 Phosphorus 3.0 mg/dL (2.5-4.9) 10/09/18 06:00 Magnesium 2.0 mg/dL (1.8-2.4) 10/09/18 06:00 Total Bilirubin 0.8 mg/dL (0.2-1) 10/08/18 16:59 AST 32 U/L (15-37) 10/08/18 16:59 ALT 33 U/L (13-61) 10/08/18 16:59 Alkaline Phosphatase 113 U/L (45-117) 10/08/18 16:59 Creatine Kinase 335 U/L (26-308) H 10/08/18 16:59 Creatine Kinase Index 1.4 % (0.0-5.0) 10/08/18 16:59 CK-MB (CK-2) 4.8 ng/mL (0.5-3.6) H 10/08/18 16:59 Troponin I 0.04 ng/ml (0.00-0.05) 10/08/18 22:38 B-Natriuretic Peptide 2223.8 pg/ml (5-450) H 10/08/18 16:59 Total Protein 7.0 g/dl (6.4-8.2) 10/08/18 16:59 Albumin 3.2 g/dl (3.4-5.0) L 10/08/18 16:59 cxr: no chf Echo 08/2018 nl LV function, mild conc LVH, EF 55-60%, grade II diastolic dysfunction, mild TR EKG 03/2017: afib with abberantly conducted beats, VR 113 bpm. lad, rbbb. Echo 05/2017: sb 55 bpm. borderline conc lvh. 1+ LVE (5.9 cm). mild-mod impaired LV fn. EF 40-45%. tds for optimal eval of rwma, but HK of the basal- to-distal inf/inflat graves. and distal ant wall and apex. E, A rev. nl rv. 1 + lae. 1+ ar. 1+ mr with tethering of the post mv leaflet. 1+ phtn. sinus borderline dilated 3.7 cm. arch 3.3 cm. stress SJR 01/2017 admit: 10.4 METS. 78% phr. no sx's. baseline inflat twi -- > pseudonormalization with exercise. pacs, pvcs, brief ventricular bigeminy in recovery. Infarct/HK of inf wall. large areas of mod intense perf defects of lat graves, apex and basal septum. dilated LV cavity. EF 30% tele: sinus, PVCs, PACs a/p: 78 m hx dm, htn, diastolic chf, cad s/p pci several months ago, afib, ckd , here with sob. acute diastolic chf, dyspnea - normal EF on echo 08/2018 - in AFib with rvr on admission, now in sinus - likely worsening HF symptoms in setting of afib - entresto not indicated, nl LV function, would continue ARB -no signs acs -agree with change lasix to PO - home dose 40 mg daily -had stress test planned as outpatient, ordered to be done tomorrow htn: -cont home meds cad s/p pci: -s/p PCI 07/2016, cont plavix, eliquis -no signs acs, cont ed on tele -cont statin, bb, arb, imdur afib: -cont bb, amiodarone -cont eliquis -monitor on tele ckd: -cr near baseline
[2018-10-10] MEDS: FLUTICASONE PROP 0.05% 16 GM NASAL SPRAY NS SCH (11:49)
[2018-10-10] MEDS: ISOSORBIDE MONONITRATE 30 MG TAB.SR.24H (FP) PO SCH (12:18)
--- NOTE | 2018-10-10 13:52 | PN ---
Teaching Attending Note Name of Resident: Shalini Nice ATTENDING PHYSICIAN STATEMENT I saw and evaluated the patient. I reviewed the resident's note and discussed the case with the resident. I agree with the resident's findings and plan as documented. SUBJECTIVE:statea breathing is better. denies CP, SOB, fever, chills, N/V/C/D OBJECTIVE: Last Vital Signs Temp Pulse Resp BP Pulse Ox 97.9 F 76 18 129/73 97 10/10/18 09:45 10/10/18 09:45 10/10/18 09:45 10/10/18 09:45 10/10/18 09:00 Intake & Output 10/07/18 10/08/18 10/09/18 10/10/18 23:59 23:59 23:59 23:59 Intake Total 100 230 Balance 100 230 Weight 204 lb 197 lb 6 oz 196 lb General NAD Lungs CTA b/l no wheezing/rales/rhonchi Extremities LLE trace pitting edema RLE none ASSESSMENT AND PLAN: 78yo M with PMH afib on eliquis, HTN, DM, CKD stage III, CAD s/p PCI and systolic CHF presented with SOB for 1 day and missed medications and found to be in volume overload with HTN urgency 1. Acute on chronic systolic CHF-clinically improved. switch to lasix po. spoke with cardio who agrees with entresto. will hold losartan for washout and start entresto as outpatient. monitor electrolytes. daily weights. optimize medications. cardio consult 2. tropinemia- due to demand. trop 0.03 to 0.04. plan for NMST tomorrow. 3. HTN urgency-improved with re-initiation of home medications. titrate to optimize control 4. afib on eliquis- rate controlled. cont amio/eliquis 5. CKD stage III- at baseline 6. CAD s/p PCI- on DUAPT. beta sunshine, statin, ARB 7. DVT ppx- eliquis 8. plan for d/c tomorrow pending results of NMST
[2018-10-10] MEDS ORDERED: PT OWN MED DRAWER 7, Y5N ONE (21:55)
[2018-10-10] MEDS: SENNOSIDES/DOCUSATE COMBO (SENNA PLUS) TABLET (UD) PO SCH (22:46)
[2018-10-10] MEDS: ATORVASTATIN CA 40 MG TABLET (FP) PO SCH (22:46)
[2018-10-11] MEDS ORDERED: MELATONIN 5 MG TABLETS PO ONE (03:33)
[2018-10-11] MEDS: INSULIN SLIDING SCALE (NOVOLOG) 1 VIAL SQ SCH ×4 (06:05→22:44)
[2018-10-11 06:59] LABS: HEMATOCRIT 41.2 % (35.4-49); HEMOGLOBIN 13.8 GM/dL (11.7-16.9); MCH 29.7 pg (25.7-33.7); MCHC 33.6 g/dl (32.0-35.9); MEAN CELL VOLUME 88.3 fl (80-96); MEAN PLT VOLUME 9.5 fl (7.5-11.1); PLATELET COUNT 210 K/MM3 (134-434); RBC 4.66 M/mm3 (4.00-5.60); RDW 14.4 % (11.9-15.9); WHITE BLOOD COUNT 6.6 K/mm3 (4.0-10.0)
[2018-10-11] MEDS ORDERED: ACETAMINOPHEN 325 MG TABLET (FP) PO PRN (07:09)
[2018-10-11 07:10] LABS: ALBUMIN 2.8 g/dl (3.4-5.0); BILIRUBIN,TOTAL 0.9 mg/dL (0.2-1); BLOOD UREA NITROGEN 24.7 mg/dL (7-18); CALCIUM 9.1 mg/dL (8.5-10.1); CREATININE 1.5 mg/dL (0.55-1.3); MAGNESIUM 2.1 mg/dL (1.8-2.4); PHOSPHOROUS 3.3 mg/dL (2.5-4.9); POTASSIUM 4.1 mmol/L (3.5-5.1)
[2018-10-11] MEDS: LOSARTAN POTASSIUM 50 MG TABLET (FP) PO SCH ×2 (08:29→12:24)
[2018-10-11] MEDS: AMIODARONE HCL 200 MG TABLET (FP) PO SCH ×2 (08:29→12:23)
[2018-10-11] MEDS ORDERED: REGADENOSON 0.4 MG/5 ML PRE-FILLED SYRINGE IVPUSH ONE ×2 (09:30→10:15)
--- NOTE | 2018-10-11 10:28 | PN ---
Progress Note, Physician Chief Complaint: Seen and examined in Cardiology Denies CP or SOB. History of Present Illness: TELE: NSR, episodes of PAF - Current Medication List Current Medications: Active Medications Acetaminophen (Tylenol -) 650 mg PO Q4H PRN PRN Reason: PAIN Amiodarone HCl (Cordarone -) 200 mg PO DAILY [facility] Last Admin: 10/11/18 08:29 Dose: 200 mg Apixaban (Eliquis -) 5 mg PO BID [facility] Last Admin: 10/10/18 22:46 Dose: 5 mg Atorvastatin Calcium (Lipitor -) 40 mg PO HS [facility] Last Admin: 10/10/18 22:46 Dose: 40 mg Clopidogrel Bisulfate (Plavix -) 75 mg PO DAILY [facility] Last Admin: 10/10/18 09:50 Dose: 75 mg Fluticasone Propionate (Flonase -) 2 spray NS DAILY [facility] Last Admin: 10/10/18 11:49 Dose: Not Given Furosemide (Lasix -) 40 mg PO DAILY [facility] Insulin Aspart (Novolog Vial Sliding Scale -) 1 vial SQ [facility]; Protocol Last Admin: 10/11/18 06:05 Dose: Not Given Isosorbide Mononitrate (Imdur -) 30 mg PO DAILY [facility] Last Admin: 10/10/18 12:18 Dose: 30 mg Losartan Potassium (Cozaar -) 100 mg PO DAILY [facility] Last Admin: 10/11/18 08:29 Dose: 100 mg Metoprolol Succinate 50 mg/ (Metoprolol Succinate 25 mg) 75 mg PO BID [facility] Last Admin: 10/10/18 22:46 Dose: 75 mg Polyethylene Glycol (Miralax (For Daily Use) -) 17 gm PO DAILY [facility] Senna/Docusate Sodium (Pericolace -) 1 tablet PO BID [facility] Last Admin: 10/10/18 22:46 Dose: 1 tablet - Objective Vital Signs: Vital Signs Temperature 97.8 F 10/11/18 09:22 Pulse Rate 76 10/11/18 09:22 Respiratory Rate 22 H 10/11/18 09:22 Blood Pressure 153/110 H 10/11/18 09:22 O2 Sat by Pulse Oximetry (%) 93 L 10/10/18 22:00 Constitutional: Yes: Calm Cardiovascular: Yes: Regular Rate and Rhythm Respiratory: Yes: CTA Bilaterally (clear, no rales.) Gastrointestinal: Yes: Soft (NT) Edema: No Neurological: Yes: Alert, Oriented Labs: CBC, BMP 10/11/18 06:20 10/11/18 06:20 INR, PTT INR 1.37 (0.83-1.09) H 10/08/18 16:59 - ....Imaging EKG: Image Reviewed Assessment/Plan DATA: Echo 08/2018 nl LV function, mild conc LVH, EF 55-60%, grade II diastolic dysfunction, mild TR EKG 03/2017: afib with abberantly conducted beats, VR 113 bpm. lad, rbbb. stress SJR 01/2017 admit: 10.4 METS. 78% phr. no sx's. baseline inflat twi -- > pseudonormalization with exercise. pacs, pvcs, brief ventricular bigeminy in recovery. Infarct/HK of inf wall. large areas of mod intense perf defects of lat graves, apex and basal septum. dilated LV cavity. EF 30% Assessment and Plan: 78 m hx dm, htn, diastolic chf, cad s/p pci several months ago, afib, ckd, here with sob. Acute diastolic chf: - normal EF on echo 08/2018 - in AFib with rvr on admission, now in sinus - likely worsening HF symptoms in setting of afib w/ RVR - entresto not indicated, nl LV function, would continue ARB -no signs acs -Cont PO Lasix -f/u nuclear stress test, currently pending HTN: isolated elevated reading this AM, overall trend has been ok -cont home meds, follow BP trend and titrate meds if needed to target 140/90 CAD s/p pci: -s/p PCI 07/2016, cont plavix, eliquis -no signs acs, enzymes flat, negative. -cont statin, bb, arb, imdur AF: -cont bb, amiodarone. LFTs ok. Check TFTs if not recently done. -cont eliquis -monitor on tele CKD: -cr near baseline
[2018-10-11] MEDS ORDERED: metoPROLOL SUCCINATE 25 MG TAB.SR.24H (FP) ONE ×2 (11:23→22:21)
--- NOTE | 2018-10-11 12:57 | PN ---
Teaching Attending Note Name of Resident: Milena Rodas ATTENDING PHYSICIAN STATEMENT I saw and evaluated the patient. I reviewed the resident's note and discussed the case with the resident. I agree with the resident's findings and plan as documented. SUBJECTIVE:currently asymptomatic. denies Cp, SOB, fever, N/V/C/d OBJECTIVE: Last Vital Signs Temp Pulse Resp BP Pulse Ox 97.8 F 76 22 H 153/110 H 93 L 10/11/18 09:22 10/11/18 09:22 10/11/18 09:22 10/11/18 09:22 10/10/18 22:00 General NAD Lungs CTA b/L no wheezing/rales/rhonchi Extremities LLE trace pitting edema RLE none ASSESSMENT AND PLAN: 78yo M with PMH afib on eliquis, HTN, DM, CKD stage III, CAD s/p PCI and systolic CHF presented with SOB for 1 day and missed medications and found to be in volume overload with HTN urgency 1. Acute on chronic diastolic CHF-clinically improved. on lasix po. actually has diastolic dysfunction. (was previously thought to be systolic and documented as such) and therefore not a candidate for entresto. plan for NMST today. monitor electrolytes. daily weights. optimize medications. cardio consult 2. tropinemia- due to demand. trop 0.03 to 0.04. plan for NMST today 3. HTN urgency-this AM above goal but has been controlled. will monitor later today. cont meds 4. afib on eliquis- rate controlled. cont amio/eliquis. should make sure having outpatient PFT to monitor for pulm fibrosis 5. CKD stage III- at baseline 6. CAD s/p PCI- on DUAPT. beta sunshine, statin, ARB 7. DVT ppx- eliquis 8. d/.c home pending results of NMST
[2018-10-11] MEDS: APIXABAN 5 MG TABLET PO SCH ×2 (13:17→22:44)
[2018-10-11] MEDS: FUROSEMIDE 20 MG TABLET (FP) PO SCH (13:17)
[2018-10-11] MEDS: ISOSORBIDE MONONITRATE 30 MG TAB.SR.24H (FP) PO SCH (13:17)
[2018-10-11] MEDS: CLOPIDOGREL BISULFATE 75 MG TABLET (FP) PO SCH (13:18)
[2018-10-11] MEDS: SENNOSIDES/DOCUSATE COMBO (SENNA PLUS) TABLET (UD) PO SCH ×2 (13:18→22:44)
[2018-10-11] MEDS: METOPROLOL SUCCINATE 50 MG, METOPROLOL SUCCINATE 25 MG PO SCH ×2 (13:19→22:44)
--- NOTE | 2018-10-11 14:31 | PN ---
Physical Exam: SUBJECTIVE: Patient seen and examined. No acute events overnight. Pt denies any CP or palpitations. He reports his feet are less edematous today. Had GODFREY in morning and was given Tylenol. No complaints this afternoon. OBJECTIVE: Vital Signs Period Temp Pulse Resp BP Sys/Mcgrath Pulse Ox Last 24 Hr 97.4 F-97.9 F 60-78 20-22 128-153/67-110 93 GENERAL: The patient is awake, alert, and fully oriented, in no acute distress. HEAD: Normal with no signs of trauma. EYES: PERRL, extraocular movements intact, sclera anicteric, conjunctiva clear. No ptosis. ENT: Ears normal, nares patent, moist mucous membranes. NECK: Trachea midline, full range of motion, supple. LUNGS: Breath sounds equal, clear to auscultation bilaterally, no wheezes, no crackles, no accessory muscle use. HEART: Regular rate and rhythm, S1, S2 without murmur, rub or gallop. ABDOMEN: Soft, nontender, nondistended, normoactive bowel sounds EXTREMITIES: 2+ pulses, feet cool to touch, duskiness in legs, no pitting edema. NEUROLOGICAL: Cranial nerves II through XII grossly intact. Normal speech, gait not observed. PSYCH: Normal mood, normal affect. SKIN: Warm, dry, normal turgor, no rashes or lesions noted except above Laboratory Results - last 24 hr 10/10/18 10/10/18 10/11/18 16:41 22:43 05:41 WBC RBC Hgb Hct MCV MCH MCHC RDW Plt Count MPV Sodium Potassium Chloride Carbon Dioxide Anion Gap BUN Creatinine Est GFR (CKD-EPI)AfAm Est GFR (CKD-EPI)NonAf POC Glucometer 227 207 167 Random Glucose Calcium Phosphorus Magnesium Total Bilirubin AST ALT Alkaline Phosphatase Total Protein Albumin 10/11/18 10/11/18 10/11/18 06:20 06:20 12:09 WBC 6.6 RBC 4.66 Hgb 13.8 Hct 41.2 MCV 88.3 MCH 29.7 MCHC 33.6 RDW 14.4 Plt Count 210 MPV 9.5 Sodium 144 Potassium 4.1 Chloride 107 Carbon Dioxide 31 Anion Gap 6 L BUN 24.7 H Creatinine 1.5 H Est GFR (CKD-EPI)AfAm 50.59 Est GFR (CKD-EPI)NonAf 43.65 POC Glucometer 184 Random Glucose 161 H Calcium 9.1 Phosphorus 3.3 Magnesium 2.1 Total Bilirubin 0.9 AST 20 ALT 26 Alkaline Phosphatase 95 Total Protein 6.0 L Albumin 2.8 L Active Medications Generic Name Dose Route Start Last Admin Trade Name Freq PRN Reason Stop Dose Admin Acetaminophen 650 mg 10/11/18 07:09 Tylenol - PO Q4H PRN PAIN Amiodarone HCl 200 mg 10/09/18 10:00 10/11/18 12:23 Cordarone - PO Not Given DAILY [facility] Apixaban 5 mg 10/08/18 22:00 10/11/18 13:17 Eliquis - PO 5 mg BID [facility] Administration Atorvastatin Calcium 40 mg 10/08/18 22:00 10/10/18 22:46 Lipitor - PO 40 mg HS [facility] Administration Clopidogrel Bisulfate 75 mg 10/09/18 10:00 10/11/18 13:18 Plavix - PO 75 mg DAILY [facility] Administration Fluticasone Propionate 2 spray 10/09/18 10:00 10/10/18 11:49 Flonase - NS Not Given DAILY [facility] Furosemide 40 mg 10/10/18 11:42 10/11/18 13:17 Lasix - PO 40 mg DAILY [facility] Administration Insulin Aspart 1 vial 10/08/18 22:00 10/11/18 12:24 Novolog Vial Sliding Scale - SQ Not Given ACHS [facility] Protocol Isosorbide Mononitrate 30 mg 10/10/18 11:45 10/11/18 13:17 Imdur - PO 30 mg DAILY [facility] Administration Losartan Potassium 100 mg 10/11/18 10:00 10/11/18 12:24 Cozaar - PO Not Given DAILY [facility] Metoprolol Succinate 50 mg/ 75 mg 10/08/18 22:00 10/11/18 13:19 Metoprolol Succinate 25 mg PO 75 mg BID [facility] Administration Polyethylene Glycol 17 gm 10/11/18 21:45 Miralax (For Daily Use) - PO DAILY [facility] Senna/Docusate Sodium 1 tablet 10/10/18 22:00 10/11/18 13:18 Pericolace - PO 1 tablet BID [facility] Administration ASSESSMENT/PLAN: Mr. Woods is a 78yo male with HTN, DM, a-fib, CKD stage 3, CAD s/p PCI, HFpEF who presented for dyspnea and was admitted on 10/08/18 for acute on chronic CHF. #acute on chronic HFpEF Nuclear stress test today indicated by zoran showed area of infarct and hypokinesis in apical region. EF was 19%, which was significantly reduced from echo EF 55-60%. Spoke with Dr. Seo, and he said reduced EF could be from a-fib. Explained results and plan with pt. -echo tomorrow -continue Lasix #a-fib Pt was in sinus rhythm on exam. -continue Eliquis -continue metoprolol succinate -continue amiodarone #CAD s/p PCI -continue losartan, metoprolol, Plavix, ASA -continue Imdur #HTN Single episode of HTN this morning 153/110. Otherwise 120s-140s/70s-90s. -continue losartan -monitor pressures #DM BG 160s-180s today -BGM -SSI #CKD stage 3 1.5/24.7, stable baseline Visit type - Emergency Visit Emergency Visit: Yes ED Registration Date: 10/08/18 Care time: The patient presented to the Emergency Department on the above date and was hospitalized for further evaluation of their emergent condition. - New Patient This patient is new to me today: Yes Date on this admission: 10/11/18 - Critical Care Critical Care patient: No - Discharge Referral Referred to [facility] No ATTENDING PHYSICIAN STATEMENT I saw and evaluated the patient. I reviewed the resident's note and discussed the case with the resident. I agree with the resident's findings and plan as documented. SUBJECTIVE: OBJECTIVE: ASSESSMENT AND PLAN:
[2018-10-11] MEDS: FLUTICASONE PROP 0.05% 16 GM NASAL SPRAY NS SCH (17:33)
[2018-10-11] MEDS: ATORVASTATIN CA 40 MG TABLET (FP) PO SCH (22:44)
[2018-10-11] MEDS: POLYETHYLENE GLYCOL 3350 119 GM BTL PO SCH (22:45)
[2018-10-12] MEDS ORDERED: MELATONIN 5 MG TABLETS PO ONE (02:04)
[2018-10-12] MEDS: INSULIN SLIDING SCALE (NOVOLOG) 1 VIAL SQ SCH ×4 (06:47→21:16)
[2018-10-12 08:09] LABS: EOS % 3.1 % (0-4.5); HEMOGLOBIN 14.5 GM/dL (11.7-16.9); LYMPH % 25.3 % (8-40); MCH 29.2 pg (25.7-33.7); MCHC 32.9 g/dl (32.0-35.9); MEAN CELL VOLUME 88.6 fl (80-96); MEAN PLT VOLUME 9.6 fl (7.5-11.1); MONO % 11.1 % (3.8-10.2); NEUT % 59.5 % (42.8-82.8); PLATELET COUNT 216 K/MM3 (134-434); RBC 4.97 M/mm3 (4.00-5.60); RDW 14.2 % (11.9-15.9); WHITE BLOOD COUNT 5.8 K/mm3 (4.0-10.0)
[2018-10-12 08:39] LABS: BLOOD UREA NITROGEN 23.7 mg/dL (7-18); CALCIUM 9.4 mg/dL (8.5-10.1); CREATININE 1.4 mg/dL (0.55-1.3)
--- NOTE | 2018-10-12 09:32 | EKG ---
Test Reason : Blood Pressure : / mmHG Vent. Rate : 110 BPM Atrial Rate : 105 BPM P-R Int : 000 ms QRS Dur : 156 ms QT Int : 382 ms P-R-T Axes : 000 -56 042 degrees QTc Int : 516 ms ATRIAL FIBRILLATION WITH RAPID VENTRICULAR RESPONSE RIGHT BUNDLE BRANCH BLOCK LEFT ANTERIOR FASCICULAR BLOCK BIFASCICULAR BLOCK ABNORMAL ECG WHEN COMPARED WITH ECG OF 08-OCT-2018 16:49, MINIMAL CRITERIA FOR INFERIOR INFARCT ARE NO LONGER PRESENT Confirmed by Kristofer Gil MD ([id number]) on 10/12/2018 9:32:42 AM Referred By: Confirmed By:Kristofer Gil MD
[2018-10-12] MEDS: POLYETHYLENE GLYCOL 3350 119 GM BTL PO SCH (10:00)
[2018-10-12] MEDS ORDERED: metoPROLOL SUCCINATE 25 MG TAB.SR.24H (FP) ONE (10:03)
[2018-10-12] MEDS ORDERED: INSULIN (NOVOLOG) ASPART 100 UNITS/ML 10ML VIAL ONE (10:04)
[2018-10-12 10:36] LABS: ARTERIAL BLD GAS O2 SATURATION 90.9 % (95-98); ARTERIAL BLOOD GAS BASE EXCESS 5.3 meq/l (-2-2); ARTERIAL BLOOD GAS PCO2 46.8 mmHg (35-45); ARTERIAL BLOOD GAS PO2 63.1 mmHg (80-100); ARTERIAL BLOOD GAS pH 7.43 (7.35-7.45)
[2018-10-12 10:45] LABS: ALLENS TEST POSITIVE
[2018-10-12] MEDS: AMIODARONE HCL 200 MG TABLET (FP) PO SCH (10:47)
[2018-10-12] MEDS: METOPROLOL SUCCINATE 50 MG, METOPROLOL SUCCINATE 25 MG PO SCH (10:47)
[2018-10-12] MEDS: APIXABAN 5 MG TABLET PO SCH ×2 (10:47→21:14)
[2018-10-12] MEDS: LOSARTAN POTASSIUM 50 MG TABLET (FP) PO SCH (10:47)
[2018-10-12] MEDS: ISOSORBIDE MONONITRATE 30 MG TAB.SR.24H (FP) PO SCH (10:47)
[2018-10-12] MEDS: SENNOSIDES/DOCUSATE COMBO (SENNA PLUS) TABLET (UD) PO SCH ×2 (10:48→21:14)
[2018-10-12] MEDS: CLOPIDOGREL BISULFATE 75 MG TABLET (FP) PO SCH (10:48)
[2018-10-12] MEDS: FLUTICASONE PROP 0.05% 16 GM NASAL SPRAY NS SCH (10:49)
[2018-10-12] MEDS: FUROSEMIDE 20 MG TABLET (FP) PO SCH (10:49)
[2018-10-12] MEDS ORDERED: metoPROLOL SUCCINATE 25 MG TAB.SR.24H (FP) PO ONE (12:00)
--- NOTE | 2018-10-12 12:07 | PN ---
Progress Note (short form) - Note Progress Note: no chest pain, palps, dizziness, dyspnea. Current Medications Acetaminophen (Tylenol -) 650 mg PO Q4H PRN PRN Reason: PAIN Amiodarone HCl (Cordarone -) 200 mg PO DAILY [facility] Last Admin: 10/12/18 10:47 Dose: 200 mg Apixaban (Eliquis -) 5 mg PO BID [facility] Last Admin: 10/12/18 10:47 Dose: 5 mg Atorvastatin Calcium (Lipitor -) 40 mg PO HS [facility] Last Admin: 10/11/18 22:44 Dose: 40 mg Clopidogrel Bisulfate (Plavix -) 75 mg PO DAILY [facility] Last Admin: 10/12/18 10:48 Dose: 75 mg Fluticasone Propionate (Flonase -) 2 spray NS DAILY [facility] Last Admin: 10/12/18 10:49 Dose: 2 spray Furosemide (Lasix -) 40 mg PO DAILY [facility] Last Admin: 10/12/18 10:49 Dose: 40 mg Insulin Aspart (Novolog Vial Sliding Scale -) 1 vial SQ [facility]; Protocol Last Admin: 10/12/18 06:47 Dose: Not Given Isosorbide Mononitrate (Imdur -) 30 mg PO DAILY [facility] Last Admin: 10/12/18 10:47 Dose: 30 mg Losartan Potassium (Cozaar -) 100 mg PO DAILY [facility] Last Admin: 10/12/18 10:47 Dose: 100 mg Metoprolol Succinate (Toprol Xl -) 100 mg PO BID [facility] Metoprolol Succinate (Toprol Xl -) 25 mg PO ONCE ONE Stop: 10/12/18 12:01 Polyethylene Glycol (Miralax (For Daily Use) -) 17 gm PO DAILY [facility] Last Admin: 10/11/18 22:45 Dose: Not Given Senna/Docusate Sodium (Pericolace -) 1 tablet PO BID [facility] Last Admin: 10/12/18 10:48 Dose: 1 tablet Vital Signs Period Temp Pulse Resp BP Sys/Mcgrath Pulse Ox Last 24 Hr 97.5 F-98.4 F 64-97 20-22 119-147/67-106 97 Constitutional: Yes: Calm Cardiovascular: Yes: Regular Rate and Rhythm Respiratory: Yes: CTA Bilaterally (clear, no rales.) Gastrointestinal: Yes: Soft (NT) Edema: No Neurological: Yes: Alert, Oriented no jaundice, diaphoresis not agitated - ....Imaging EKG: Image Reviewed Assessment/Plan DATA: Echo 08/2018 nl LV function, mild conc LVH, EF 55-60%, grade II diastolic dysfunction, mild TR EKG 03/2017: afib with abberantly conducted beats, VR 113 bpm. lad, rbbb. stress SJR 01/2017 admit: 10.4 METS. 78% phr. no sx's. baseline inflat twi -- > pseudonormalization with exercise. pacs, pvcs, brief ventricular bigeminy in recovery. Infarct/HK of inf wall. large areas of mod intense perf defects of lat graves, apex and basal septum. dilated LV cavity. EF 30% mibi 09/2018 mod inf fixed defect from base to apex c/w diaphragmatic attenuation , sm apical thinning cannot rule out small zone of infarct, LV dilatation, severely reduced LV function with global hypokinesis EF 19%, no ischemia tele: sinus with episodes of pafib with rate controlled Assessment and Plan: 78 m hx dm, htn, diastolic chf, cad s/p pci several months ago, afib, ckd, here with sob. Acute diastolic chf: - normal EF on echo 08/2018 - in AFib with rvr on admission, now in sinus with afib intermittently - likely worsening HF symptoms in setting of afib w/ RVR -cont losartan, inc metoprolol -no signs acs -Cont PO Lasix - mibi no ischemia, however EF now 19% (normal EF in 08/2018) - likely systolic dysfunction in setting of afib with RVR although has had low EF on prior studies - will consider outpatient EP evaluation - echo pending today HTN: isolated elevated reading this AM, overall trend has been ok -cont home meds, follow BP trend and titrate meds if needed to target 140/90 CAD s/p pci: -s/p PCI 07/2016, cont plavix, eliquis -no signs acs, enzymes flat, negative. -cont statin, bb, arb, imdur AF: -cont bb, amiodarone. LFTs ok. Check TFTs if not recently done. -cont eliquis -monitor on tele CKD: -cr near baseline
--- NOTE | 2018-10-12 16:54 | ECHO ---
Name: FRED HURLEY Exam:Adult Echocardiogram Study Date: 10/12/2018 12:21 PM Age: 78 yrs Reason For Study: CHF EF 19% ON STRESS PREVIOUSLY WNL Height: 70 in Weight: 196 lb BSA: 2.1 m2 MMode/2D Measurements & Calculations IVSd: 0.81 cm Ao root diam: 3.2 cm LVIDd: 5.8 cm LA dimension: 3.7 cm LVIDs: 5.2 cm LVPWd: 0.89 cm EDV(Jitendra): 163.6 ml LVOT diam: 2.1 cm ESV(Jitendra): 129.5 ml LAV(MOD-sp2): 75.9 ml LAV(MOD-sp4): 73.9 ml LAV(MOD-bp): 78.6 ml LAV(MOD-bp) Indexed: 38.0 ml/m2 Doppler Measurements & Calculations MV E max murali: 83.9 cm/sec Ao V2 max: 116.0 cm/sec MV A max murali: 30.7 cm/sec Ao max P.4 mmHg MV E/A: 2.7 Ao V2 mean: 79.4 cm/sec MV dec time: 0.18 sec Ao mean P.0 mmHg Ao V2 VTI: 21.0 cm ALMA(I,D): 1.9 cm2 AI P1/2t: 447.1 msec ALMA(V,D): 1.8 cm2 AI max murali: 262.0 cm/sec LV V1 max P.4 mmHg AI max P.5 mmHg LV V1 mean P.0 mmHg LV V1 max: 59.8 cm/sec AI dec slope: 173.0 cm/sec2 LV V1 mean: 43.1 cm/sec LV V1 VTI: 11.2 cm MR max murali: 326.5 cm/sec SV(LVOT): 38.9 ml MR max P.1 mmHg TR max murali: 236.9 cm/sec PA V2 max: 117.0 cm/sec TR max P.7 mmHg PA max P.5 mmHg PI end-d murali: 138.0 cm/sec Med Peak E' Murali: 3.6 cm/sec Med E/e': 24.0 Lat Peak E' Murali: 3.9 cm/sec Lat E/e': 21.9 Procedure A complete two-dimensional transthoracic echocardiogram was performed (2D, M-mode, Doppler and color flow Doppler). Left Ventricle The left ventricle is mildly dilated. Ejection Fraction = 20%. Diastolic dysfunction, Grade III, cons istent with marked congestive heart failure. There is posterior wall akinesis. There is inferior wall akines is. The remaining graves are severely hypokinetic. Right Ventricle The right ventricle is normal size. The right ventricular systolic function is moderately reduced. Atria The left atrium is mildly dilated. Right atrial size is normal. Mitral Valve The mitral valve is normal in structure and function. There is mild mitral regurgitation. Tricuspid Valve The tricuspid valve is normal in structure and function. There is mild tricuspid regurgitation. Aortic Valve The aortic valve is normal in structure and function. Mild aortic regurgitation. Pulmonic Valve The pulmonic valve is not well seen, but is grossly normal. Great Vessels The aortic root is normal size. Pericardium/Pleura There is no pericardial effusion. Interpretation Summary Compared to report from 08/30/17, LV function has decreased significantly. Segmental wall motion abnor malities as described with severely reduced LV systolic function. The right ventricular systolic function is moderately reduced. Diastolic dysfunction, Grade III, consistent with marked congestive heart failure. Vikash Goodman 10/12/2018 04:53 PM
--- NOTE | 2018-10-12 19:42 | PN ---
Teaching Attending Note Name of Resident: Milena Rodas ATTENDING PHYSICIAN STATEMENT I saw and evaluated the patient. I reviewed the resident's note and discussed the case with the resident. I agree with the resident's findings and plan as documented. SUBJECTIVE: Patient is feeling better with no acute distress, going for repeat Echo since EJF of 19%. OBJECTIVE: Vital Signs Temperature 98.1 F 10/12/18 14:00 Pulse Rate 103 H 10/12/18 14:00 Respiratory Rate 18 10/12/18 10:00 Blood Pressure 106/74 10/12/18 14:00 O2 Sat by Pulse Oximetry (%) 96 10/12/18 09:00 GENERAL: The patient is awake, alert, and fully oriented, in no acute distress. HEAD: Normal with no signs of trauma. EYES: PERRL, extraocular movements intact, sclera anicteric, conjunctiva clear. ENT: Ears normal, oropharynx clear without exudates, moist mucous membranes. NECK: Trachea midline, full range of motion, supple. LUNGS: decreased Breath sounds bl , no wheezes, no crackles, no accessory muscle use. HEART: Regular rate and rhythm, S1, S2 without murmur, rub or gallop. ABDOMEN: Soft, nontender, nondistended, normoactive bowel sounds, no guarding, no rebound, no hepatosplenomegaly, no masses. EXTREMITIES: 2+ pulses, warm, well-perfused, no edema. NEUROLOGICAL: Cranial nerves II through XII grossly intact. Normal speech, gait not observed. PSYCH: Normal mood, normal affect. SKIN: Warm, dry, normal turgor, no rashes or lesions noted CBCD WBC 5.8 K/mm3 (4.0-10.0) 10/12/18 07:35 RBC 4.97 M/mm3 (4.00-5.60) 10/12/18 07:35 Hgb 14.5 GM/dL (11.7-16.9) 10/12/18 07:35 Hct 44.0 % (35.4-49) 10/12/18 07:35 MCV 88.6 fl (80-96) 10/12/18 07:35 MCHC 32.9 g/dl (32.0-35.9) 10/12/18 07:35 RDW 14.2 % (11.9-15.9) 10/12/18 07:35 Plt Count 216 K/MM3 (134-434) 10/12/18 07:35 MPV 9.6 fl (7.5-11.1) 10/12/18 07:35 CMP Sodium 145 mmol/L (136-145) 10/12/18 07:35 Potassium 4.0 mmol/L (3.5-5.1) 10/12/18 07:35 Chloride 108 mmol/L (98-107) H 10/12/18 07:35 Carbon Dioxide 31 mmol/L (21-32) 10/12/18 07:35 Anion Gap 6 MMOL/L (8-16) L 10/12/18 07:35 BUN 23.7 mg/dL (7-18) H 10/12/18 07:35 Creatinine 1.4 mg/dL (0.55-1.3) H 10/12/18 07:35 Random Glucose 153 mg/dL (74-106) H 10/12/18 07:35 Calcium 9.4 mg/dL (8.5-10.1) 10/12/18 07:35 Total Bilirubin 0.9 mg/dL (0.2-1) 10/11/18 06:20 AST 20 U/L (15-37) 10/11/18 06:20 ALT 26 U/L (13-61) 10/11/18 06:20 Alkaline Phosphatase 95 U/L (45-117) 10/11/18 06:20 Total Protein 6.0 g/dl (6.4-8.2) L 10/11/18 06:20 Albumin 2.8 g/dl (3.4-5.0) L 10/11/18 06:20 CARDIAC ENZYMES Creatine Kinase 335 U/L (26-308) H 10/08/18 16:59 Troponin I 0.04 ng/ml (0.00-0.05) 10/08/18 22:38 Current Medications Generic Name Dose Route Start Last Admin Trade Name Freq PRN Reason Stop Dose Admin Acetaminophen 650 mg 10/11/18 07:09 Tylenol - PO Q4H PRN PAIN Amiodarone HCl 200 mg 10/09/18 10:00 10/12/18 10:47 Cordarone - PO 200 mg DAILY [facility] Administration Apixaban 5 mg 10/08/18 22:00 10/12/18 10:47 Eliquis - PO 5 mg BID [facility] Administration Atorvastatin Calcium 40 mg 10/08/18 22:00 10/11/18 22:44 Lipitor - PO 40 mg HS [facility] Administration Clopidogrel Bisulfate 75 mg 10/09/18 10:00 10/12/18 10:48 Plavix - PO 75 mg DAILY [facility] Administration Fluticasone Propionate 2 spray 10/09/18 10:00 10/12/18 10:49 Flonase - NS 2 spray DAILY [facility] Administration Furosemide 40 mg 10/10/18 11:42 10/12/18 10:49 Lasix - PO 40 mg DAILY [facility] Administration Insulin Aspart 1 vial 10/08/18 22:00 10/12/18 18:14 Novolog Vial Sliding Scale - SQ 4 unit ACHS [facility] Administration Protocol Isosorbide Mononitrate 30 mg 10/10/18 11:45 10/12/18 10:47 Imdur - PO 30 mg DAILY [facility] Administration Losartan Potassium 100 mg 10/11/18 10:00 10/12/18 10:47 Cozaar - PO 100 mg DAILY [facility] Administration Metoprolol Succinate 100 mg 10/12/18 11:59 Toprol Xl - PO BID [facility] Polyethylene Glycol 17 gm 10/11/18 21:45 10/12/18 10:00 Miralax (For Daily Use) - PO Not Given DAILY [facility] Senna/Docusate Sodium 1 tablet 10/10/18 22:00 10/12/18 10:48 Pericolace - PO 1 tablet BID [facility] Administration Home Medications Medication Instructions Recorded Losartan Potassium 100 mg PO DAILY 10/24/15 Atorvastatin Ca [Lipitor] 20 mg PO HS 02/07/17 Amiodarone HCl 200 mg PO DAILY 03/30/18 Apixaban [Eliquis -] 5 mg PO BID 03/30/18 Aspirin [ASA -] 81 mg PO DAILY 03/30/18 Clopidogrel Bisulfate [Plavix -] 75 mg PO DAILY 03/30/18 Fluticasone Prop 0.05% Nasal 1 - 2 spray NS DAILY 03/30/18 [Flonase -] Furosemide [Lasix -] 20 mg PO DAILY 03/30/18 Isosorbide Mononitrate [Isosorbide 30 mg PO DAILY 03/30/18 Mononitrate ER] Meclizine HCl [Antivert -] 12.5 mg PO TID #21 tablet 03/30/18 Dulaglutide [Trulicity] 0.75 mg SQ DAILY 08/28/18 Linaclotide [Linzess] 290 mcg PO DAILY 08/28/18 Metoprolol Succinate [Toprol XL -] 75 mg PO BID #180 tab.sr.24h 08/31/18 Melatonin/Pyridoxine HCl (B6) 1 each PO PRN 10/09/18 [Melatonin 3 mg Tablet] ASSESSMENT AND PLAN: Patient is a 78yo M with PMHx afib on eliquis, HTN, DM, CKD stage III, CAD s/p PCI and systolic CHF presented with SOB for 1 day and missed medications and found to be in volume overload with HTN urgency # Acute on chronic diastolic CHF-clinically improving , continue lasix po. plan to repeat echo as per cardio since his EJF dropped to 19% as per cardio. daily weights. optimize medications. cardio consult # tropinemia- due to demand. trop 0.03 to 0.04. s/p NMST # HTN urgency: stable on Losartan continue # afib on eliquis- rate controlled. cont amio/eliquis. outpatient PFT to monitor for pulm fibrosis, follow FT4, thyroid functiona s an outpatient # CKD stage III- at baseline # CAD s/p PCI- on DUAPT. beta sunshine, statin, ARB DVT ppx- eliquis d/.c home pending echo pending, check with cardio whether needing catherazation vs home
--- NOTE | 2018-10-12 19:50 | PN ---
Physical Exam: SUBJECTIVE: Patient seen and examined. Denies chest pain, or SOB at rest. OBJECTIVE: Vital Signs Period Temp Pulse Resp BP Sys/Mcgrath Pulse Ox Last 24 Hr 97.5 F-98.4 F 92-103 18-20 106-147/67-104 96-97 GENERAL: The patient is awake, alert, and fully oriented, in no acute distress. HEAD: Normal with no signs of trauma. EYES: PERRL, extraocular movements intact, sclera anicteric, conjunctiva clear. No ptosis. ENT: Ears normal, nares patent, oropharynx clear without exudates, moist mucous membranes. NECK: Trachea midline, full range of motion, supple. LUNGS: Breath sounds equal, clear to auscultation bilaterally, no wheezes, no crackles, no accessory muscle use. HEART: Regular rate and irregular rhythm, S1, S2 without murmur, rub or gallop. ABDOMEN: Soft, nontender, nondistended, normoactive bowel sounds, no guarding, no rebound, no hepatosplenomegaly, no masses. EXTREMITIES: 2+ pulses, warm, well-perfused, no edema. NEUROLOGICAL: Cranial nerves II through XII grossly intact. Normal speech, gait not observed. PSYCH: Normal mood, normal affect. SKIN: Warm, dry, normal turgor, no rashes or lesions noted Laboratory Results - last 24 hr 10/11/18 10/12/18 10/12/18 22:42 06:46 07:35 WBC RBC Hgb Hct MCV MCH MCHC RDW Plt Count MPV Absolute Neuts (auto) Neutrophils % Lymphocytes % Monocytes % Eosinophils % Basophils % Nucleated RBC % Puncture Site ABG pH ABG pCO2 at Pt Temp ABG pO2 at Pt Temp ABG HCO3 ABG O2 Sat (Measured) ABG O2 Content ABG Base Excess Joao Test O2 Delivery Device Oxygen Flow Rate Sodium 145 Potassium 4.0 Chloride 108 H Carbon Dioxide 31 Anion Gap 6 L BUN 23.7 H Creatinine 1.4 H Est GFR (CKD-EPI)AfAm 54.99 Est GFR (CKD-EPI)NonAf 47.45 POC Glucometer 218 155 Random Glucose 153 H Calcium 9.4 TSH 1.55 D 10/12/18 10/12/18 10/12/18 07:35 10:20 12:11 WBC 5.8 RBC 4.97 Hgb 14.5 Hct 44.0 MCV 88.6 MCH 29.2 MCHC 32.9 RDW 14.2 Plt Count 216 MPV 9.6 Absolute Neuts (auto) 3.4 Neutrophils % 59.5 Lymphocytes % 25.3 Monocytes % 11.1 H Eosinophils % 3.1 Basophils % 1.0 Nucleated RBC % 0 Puncture Site Right radial ABG pH 7.43 ABG pCO2 at Pt Temp 46.8 H ABG pO2 at Pt Temp 63.1 L ABG HCO3 30.2 H ABG O2 Sat (Measured) 90.9 L ABG O2 Content 17.6 ABG Base Excess 5.3 H Joao Test Positive O2 Delivery Device Room air Oxygen Flow Rate 21% Sodium Potassium Chloride Carbon Dioxide Anion Gap BUN Creatinine Est GFR (CKD-EPI)AfAm Est GFR (CKD-EPI)NonAf POC Glucometer 227 Random Glucose Calcium TSH 10/12/18 16:51 WBC RBC Hgb Hct MCV MCH MCHC RDW Plt Count MPV Absolute Neuts (auto) Neutrophils % Lymphocytes % Monocytes % Eosinophils % Basophils % Nucleated RBC % Puncture Site ABG pH ABG pCO2 at Pt Temp ABG pO2 at Pt Temp ABG HCO3 ABG O2 Sat (Measured) ABG O2 Content ABG Base Excess Joao Test O2 Delivery Device Oxygen Flow Rate Sodium Potassium Chloride Carbon Dioxide Anion Gap BUN Creatinine Est GFR (CKD-EPI)AfAm Est GFR (CKD-EPI)NonAf POC Glucometer 283 Random Glucose Calcium TSH Active Medications Generic Name Dose Route Start Last Admin Trade Name Freq PRN Reason Stop Dose Admin Acetaminophen 650 mg 10/11/18 07:09 Tylenol - PO Q4H PRN PAIN Amiodarone HCl 200 mg 10/09/18 10:00 10/12/18 10:47 Cordarone - PO 200 mg DAILY [facility] Administration Apixaban 5 mg 10/08/18 22:00 10/12/18 10:47 Eliquis - PO 5 mg BID [facility] Administration Atorvastatin Calcium 40 mg 10/08/18 22:00 10/11/18 22:44 Lipitor - PO 40 mg HS [facility] Administration Clopidogrel Bisulfate 75 mg 10/09/18 10:00 10/12/18 10:48 Plavix - PO 75 mg DAILY [facility] Administration Fluticasone Propionate 2 spray 10/09/18 10:00 10/12/18 10:49 Flonase - NS 2 spray DAILY [facility] Administration Furosemide 40 mg 10/10/18 11:42 10/12/18 10:49 Lasix - PO 40 mg DAILY [facility] Administration Insulin Aspart 1 vial 10/08/18 22:00 10/12/18 18:14 Novolog Vial Sliding Scale - SQ 4 unit ACHS [facility] Administration Protocol Isosorbide Mononitrate 30 mg 10/10/18 11:45 10/12/18 10:47 Imdur - PO 30 mg DAILY [facility] Administration Losartan Potassium 100 mg 10/11/18 10:00 10/12/18 10:47 Cozaar - PO 100 mg DAILY [facility] Administration Metoprolol Succinate 100 mg 10/12/18 11:59 Toprol Xl - PO BID [facility] Polyethylene Glycol 17 gm 10/11/18 21:45 10/12/18 10:00 Miralax (For Daily Use) - PO Not Given DAILY [facility] Senna/Docusate Sodium 1 tablet 10/10/18 22:00 10/12/18 10:48 Pericolace - PO 1 tablet BID [facility] Administration ASSESSMENT/PLAN: Mr. Woods is a 78yo male with HTN, DM, a-fib, CKD stage 3, CAD s/p PCI, HFpEF who presented for dyspnea and was admitted on 10/08/18 for acute on chronic CHF. #acute on chronic HF with new onset reduced EF Nuclear stress test today indicated by tropenemia showed area of infarct and hypokinesis in apical region. EF was 19%, which was significantly reduced from echo EF 55-60%. Echo done today confirmed EF 20%. Discussed with Dr. 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 No urgent need to cath pt. -continue Lasix #a-fib Tele showed a-fib with occasional PVCs -continue Eliquis -continue metoprolol succinate -continue amiodarone #CAD s/p PCI -continue losartan, metoprolol, Plavix, ASA -continue Imdur #HTN controlled currently, mild hypertension -continue losartan -monitor pressures #DM BG in 200s -BGM -SSI #CKD stage 3 23.7/1.4, stable baseline Visit type - Emergency Visit Emergency Visit: Yes ED Registration Date: 10/08/18 Care time: The patient presented to the Emergency Department on the above date and was hospitalized for further evaluation of their emergent condition. - New Patient This patient is new to me today: No - Critical Care Critical Care patient: No - Discharge Referral Referred to [facility] No ATTENDING PHYSICIAN STATEMENT I saw and evaluated the patient. I reviewed the resident's note and discussed the case with the resident. I agree with the resident's findings and plan as documented. SUBJECTIVE: OBJECTIVE: ASSESSMENT AND PLAN:
[2018-10-12] MEDS: ATORVASTATIN CA 40 MG TABLET (FP) PO SCH (21:14)
[2018-10-13] MEDS: INSULIN SLIDING SCALE (NOVOLOG) 1 VIAL SQ SCH ×3 (06:21→16:48)
[2018-10-13 07:07] LABS: MAGNESIUM 1.9 mg/dL (1.8-2.4); PHOSPHOROUS 3.1 mg/dL (2.5-4.9)
[2018-10-13] MEDS: APIXABAN 5 MG TABLET PO SCH (09:17)
[2018-10-13] MEDS: ISOSORBIDE MONONITRATE 30 MG TAB.SR.24H (FP) PO SCH (09:17)
[2018-10-13] MEDS: FUROSEMIDE 20 MG TABLET (FP) PO SCH (09:17)
[2018-10-13] MEDS: CLOPIDOGREL BISULFATE 75 MG TABLET (FP) PO SCH (09:17)
[2018-10-13] MEDS: LOSARTAN POTASSIUM 50 MG TABLET (FP) PO SCH (09:17)
[2018-10-13] MEDS: AMIODARONE HCL 200 MG TABLET (FP) PO SCH (09:18)
[2018-10-13] MEDS: POLYETHYLENE GLYCOL 3350 119 GM BTL PO SCH (09:19)
[2018-10-13] MEDS: SENNOSIDES/DOCUSATE COMBO (SENNA PLUS) TABLET (UD) PO SCH (09:20)
[2018-10-13] MEDS: FLUTICASONE PROP 0.05% 16 GM NASAL SPRAY NS SCH (09:21)
--- NOTE | 2018-10-13 11:03 | PN ---
Progress Note (short form) - Note Progress Note: some shortness of breath when walking, no chest pain, palps. prior to coming to hospital was moving into new house and had chest tightness with moving furniture, now sob at times with going to bathroom. no orthopnea, PND, edema no cigs Current Medications Acetaminophen (Tylenol -) 650 mg PO Q4H PRN PRN Reason: PAIN Amiodarone HCl (Cordarone -) [address] [facility] Last Admin: 10/13/18 09:18 Dose: 200 mg Apixaban (Eliquis -) [address] [facility] Last Admin: 10/13/18 09:17 Dose: 5 mg Atorvastatin Calcium (Lipitor -) [address] [facility] Last Admin: 10/12/18 21:14 Dose: 40 mg Clopidogrel Bisulfate (Plavix -) [address] [facility] Last Admin: 10/13/18 09:17 Dose: 75 mg Fluticasone Propionate (Flonase -) [address] [facility] Last Admin: 10/13/18 09:21 Dose: 2 spray Furosemide (Lasix -) [address] [facility] Last Admin: 10/13/18 09:17 Dose: 40 mg Insulin Aspart (Novolog Vial Sliding Scale -) 1 vial SQ [facility]; Protocol Last Admin: 10/13/18 06:21 Dose: Not Given Isosorbide Mononitrate (Imdur -) [address] [facility] Last Admin: 10/13/18 09:17 Dose: 30 mg Losartan Potassium (Cozaar -) [address] [facility] Last Admin: 10/13/18 09:17 Dose: 100 mg Metoprolol Succinate (Toprol Xl -) [address] [facility] Last Admin: 10/13/18 09:17 Dose: 100 mg Polyethylene Glycol (Miralax (For Daily Use) -) [address] [facility] Last Admin: 10/13/18 09:19 Dose: Not Given Senna/Docusate Sodium (Pericolace -) [address] [facility] Last Admin: 10/13/18 09:20 Dose: 1 tablet Vital Signs Period Temp Pulse Resp BP Sys/Mcgrath Pulse Ox Last 24 Hr 97.8 F-98.2 F 92-103 20-20 106-140/72-87 94-94 Constitutional: Yes: Calm Cardiovascular: Yes: Regular Rate and Rhythm Respiratory: Yes: CTA Bilaterally (clear, no rales.) Gastrointestinal: Yes: Soft (NT) Edema: No Neurological: Yes: Alert, Oriented no jaundice, diaphoresis not agitated DATA: Echo 08/2018 nl LV function, mild conc LVH, EF 55-60%, grade II diastolic dysfunction, mild TR EKG 03/2017: afib with abberantly conducted beats, VR 113 bpm. lad, rbbb. stress SJR 01/2017 admit: 10.4 METS. 78% phr. no sx's. baseline inflat twi -- > pseudonormalization with exercise. pacs, pvcs, brief ventricular bigeminy in recovery. Infarct/HK of inf wall. large areas of mod intense perf defects of lat graves, apex and basal septum. dilated LV cavity. EF 30% mibi 09/2018 mod inf fixed defect from base to apex c/w diaphragmatic attenuation , sm apical thinning cannot rule out small zone of infarct, LV dilatation, severely reduced LV function with global hypokinesis EF 19%, no ischemia echo 09/2018 severely reduced LV function EF 20%, RV function mod reduced, grade III diastolic dysfunction, posterior and inf wall akinesis tele: sinus rate 60s Assessment and Plan: 78 m hx dm, htn, diastolic chf, cad s/p pci several months ago, afib, ckd, here with sob. Acute systolic chf: - normal EF on echo 08/2018 - in AFib with rvr on admission, now in sinus rhythm - had been intermittently in afib and sinus rhythm - EF markedly reduced compared to prior one month ago with new wall motion abnormalities. may be rate related vs new ischemia - currently appears euvolemic with no orthopnea, PND, edema but dyspnea and at times chest tightness with walking short distances - transfer to [facility] for right and left heart cath -cont losartan, metoprolol, lasix HTN: isolated elevated reading this AM, overall trend has been ok -cont home meds, follow BP trend and titrate meds if needed to target 140/90 CAD s/p pci: -s/p PCI 07/2016, cont plavix, eliquis -no signs acs, enzymes flat, negative. -cont statin, bb, arb, imdur AF: -cont bb, amiodarone. LFTs ok, TSH nl -cont eliquis -monitor on tele CKD: -cr near baseline
[2018-10-13 15:36] VITALS: BP 136/88; PULSE 62; TEMP 98.1
[2018-10-13] MEDS ORDERED: INSULIN (NOVOLOG) ASPART 100 UNITS/ML 10ML VIAL ONE (16:51)
--- NOTE | 2018-10-13 17:16 | PN ---
Physical Exam: SUBJECTIVE: Patient seen and examined OBJECTIVE: Vital Signs Period Temp Pulse Resp BP Sys/Mcgrath Pulse Ox Last 24 Hr 97.8 F-98.2 F 62-101 20-20 131-140/72-88 94-94 GENERAL: The patient is awake, alert, and fully oriented, in no acute distress. HEAD: Normal with no signs of trauma. EYES: PERRL, extraocular movements intact, sclera anicteric, conjunctiva clear. No ptosis. ENT: Ears normal, nares patent, oropharynx clear without exudates, moist mucous membranes. NECK: Trachea midline, full range of motion, supple. LUNGS: Breath sounds equal, clear to auscultation bilaterally, no wheezes, no crackles, no accessory muscle use. HEART: Regular rate and rhythm, S1, S2 without murmur, rub or gallop. ABDOMEN: Soft, nontender, nondistended, normoactive bowel sounds, no guarding, no rebound, no hepatosplenomegaly, no masses. EXTREMITIES: 2+ pulses, warm, well-perfused, no edema. NEUROLOGICAL: Cranial nerves II through XII grossly intact. Normal speech, gait not observed. PSYCH: Normal mood, normal affect. SKIN: Warm, dry, normal turgor, no rashes or lesions noted Laboratory Results - last 24 hr 10/12/18 10/13/18 10/13/18 21:15 05:39 06:10 POC Glucometer 238 194 Phosphorus 3.1 Magnesium 1.9 TSH 1.60 D Free T4 1.56 H 10/13/18 10/13/18 10:53 16:30 POC Glucometer 286 220 Phosphorus Magnesium TSH Free T4 Active Medications Generic Name Dose Route Start Last Admin Trade Name Freq PRN Reason Stop Dose Admin Acetaminophen 650 mg 10/11/18 07:09 Tylenol - PO Q4H PRN PAIN Amiodarone HCl 200 mg 10/09/18 10:00 10/13/18 09:18 Cordarone - PO 200 mg DAILY [facility] Administration Apixaban 5 mg 10/08/18 22:00 10/13/18 09:17 Eliquis - PO 5 mg BID [facility] Administration Atorvastatin Calcium 40 mg 10/08/18 22:00 10/12/18 21:14 Lipitor - PO 40 mg HS [facility] Administration Clopidogrel Bisulfate 75 mg 10/09/18 10:00 10/13/18 09:17 Plavix - PO 75 mg DAILY [facility] Administration Fluticasone Propionate 2 spray 10/09/18 10:00 10/13/18 09:21 Flonase - NS 2 spray DAILY [facility] Administration Furosemide 40 mg 10/10/18 11:42 10/13/18 09:17 Lasix - PO 40 mg DAILY [facility] Administration Insulin Aspart 1 vial 10/08/18 22:00 10/13/18 16:48 Novolog Vial Sliding Scale - SQ 2 unit ACHS [facility] Administration Protocol Isosorbide Mononitrate 30 mg 10/10/18 11:45 10/13/18 09:17 Imdur - PO 30 mg DAILY [facility] Administration Losartan Potassium 100 mg 10/11/18 10:00 10/13/18 09:17 Cozaar - PO 100 mg DAILY [facility] Administration Metoprolol Succinate 100 mg 10/12/18 11:59 10/13/18 09:17 Toprol Xl - PO 100 mg BID [facility] Administration Polyethylene Glycol 17 gm 10/11/18 21:45 10/13/18 09:19 Miralax (For Daily Use) - PO Not Given DAILY [facility] Senna/Docusate Sodium 1 tablet 10/10/18 22:00 10/13/18 09:20 Pericolace - PO 1 tablet BID [facility] Administration ASSESSMENT/PLAN: ATTENDING PHYSICIAN STATEMENT I saw and evaluated the patient. I reviewed the resident's note and discussed the case with the resident. I agree with the resident's findings and plan as documented. SUBJECTIVE: OBJECTIVE: ASSESSMENT AND PLAN:
--- NOTE | 2018-10-13 17:17 | DS ---
Physical Exam: SUBJECTIVE: Patient seen and examined. Pt denies SOB at rest, CP, and palpitations. OBJECTIVE: Vital Signs Period Temp Pulse Resp BP Sys/Mcgrath Pulse Ox Last 24 Hr 97.8 F-98.2 F 62-101 20-20 131-140/72-88 94-94 PHYSICAL EXAM GENERAL: The patient is awake, alert, and fully oriented, in no acute distress. HEAD: Normal with no signs of trauma. EYES: PERRL, extraocular movements intact, sclera anicteric, conjunctiva clear. No ptosis. ENT: Ears normal, nares patent, oropharynx clear without exudates, moist mucous membranes. NECK: Trachea midline, full range of motion, supple. LUNGS: Breath sounds equal, clear to auscultation bilaterally, no wheezes, no crackles, no accessory muscle use. HEART: Regular rate and irregular rhythm, S1, S2 without murmur, rub or gallop. ABDOMEN: Soft, nontender, nondistended, normoactive bowel sounds, no guarding, no rebound, no hepatosplenomegaly, no masses. EXTREMITIES: 2+ pulses, warm, well-perfused, no edema. NEUROLOGICAL: Cranial nerves II through XII grossly intact. Normal speech, gait not observed. PSYCH: Normal mood, normal affect. SKIN: Warm, dry, normal turgor, no rashes or lesions noted LABS Laboratory Results - last 24 hr 10/12/18 10/13/18 10/13/18 21:15 05:39 06:10 POC Glucometer 238 194 Phosphorus 3.1 Magnesium 1.9 TSH 1.60 D Free T4 1.56 H 10/13/18 10/13/18 10:53 16:30 POC Glucometer 286 220 Phosphorus Magnesium TSH Free T4 HOSPITAL COURSE: Mr. Woods is a 78yo male with HTN, DM, a-fib, CKD stage 3, CAD s/p PCI, HFpEF who presented for dyspnea and was admitted on 10/08/18 for acute on chronic CHF. Nuclear stress test indicated by tropenemia showed area of infarct and hypokinesis in apical region. EF was 19%, which was significantly reduced from echo EF 55-60%. Echo done yesterday confirmed EF 20%. Right and Left heart cath reccomended by Dr Armijo. Pt transferred to [facility]. Date of Admission:10/08/18 Date of Discharge: 10/13/18 Minutes to complete discharge: 35 Discharge Summary Reason For Visit: DIABETES MELLITUS; HEART FAILURE; HYPERTENSION Current Active Problems Shortness of breath (Acute) Condition: Stable - Instructions Diet, Activity, Other Instructions: Your Visit: You were admitted to the hospital because of your shortness of breath. The stress test and echo (heart ultrasound) showed your heart is not functioning as well as it was a month ago. You require further tests, including a heart catheterization to look for any clogged arteries. You are being transferred to [facility] for further care. Medication Changes: [facility] will manage your medications while you are under their care. They will discuss any medication changes when you are discharged from there. Follow up medication and follow up recommendations from the [facility]. Follow up: Follow up with Dr. Rossi, the post hole digger you saw at [facility] after you are discharged from [facility] so she can monitor your progress. Follow up with your primary care doctor within 1-2 days after you are discharged to talk about possible pulmonary function tests, as well as your thyroid function. Please return to the nearest Emergency Room if you experience increased shortness of breath, chest pain, or loss of consciousness. Referrals: Kristan Rossi MD [Staff Physician] - Disposition: TRANSFER ACUTE CARE/OTHER HOSP - Home Medications Comprehensive Discharge Medication List: Ambulatory Orders Losartan Potassium 100 mg PO DAILY 10/24/15 Atorvastatin Ca [Lipitor] 20 mg PO HS 02/07/17 Amiodarone HCl 200 mg PO DAILY 03/30/18 Apixaban [Eliquis -] 5 mg PO BID 03/30/18 Aspirin [ASA -] 81 mg PO DAILY 03/30/18 Clopidogrel Bisulfate [Plavix -] 75 mg PO DAILY 03/30/18 Fluticasone Prop 0.05% Nasal [Flonase -] 1 - 2 spray NS DAILY 03/30/18 Furosemide [Lasix -] 20 mg PO DAILY 03/30/18 Isosorbide Mononitrate [Isosorbide Mononitrate ER] 30 mg PO DAILY 03/30/18 Meclizine HCl [Antivert -] 12.5 mg PO TID #21 tablet 03/30/18 Dulaglutide [Trulicity] 0.75 mg SQ DAILY 08/28/18 Linaclotide [Linzess] 290 mcg PO DAILY 08/28/18 Metoprolol Succinate [Toprol XL -] 75 mg PO BID #180 tab.sr.24h 08/31/18 Melatonin/Pyridoxine HCl (B6) [Melatonin 3 mg Tablet] 1 each PO PRN 10/09/18 This patient is new to me today: No Emergency Visit: Yes ED Registration Date: 10/08/18 Care time: The patient presented to the Emergency Department on the above date and was hospitalized for further evaluation of their emergent condition. Critical Care patient: No - Discharge Referral Referred to [facility] Med P.C.: No ATTENDING PHYSICIAN STATEMENT I saw and evaluated the patient. I reviewed the resident's note and discussed the case with the resident. I agree with the resident's findings and plan as documented. SUBJECTIVE: OBJECTIVE: ASSESSMENT AND PLAN:
--- NOTE | 2018-10-13 17:22 | PN ---
Teaching Attending Note Name of Resident: Milena Rodas ATTENDING PHYSICIAN STATEMENT I saw and evaluated the patient. I reviewed the resident's note and discussed the case with the resident. I agree with the resident's findings and plan as documented. SUBJECTIVE: Feeling well. No further chest pain. No palpitations. SOB improved - still dyspneic on exertion. No cough/sputum/hemoptysis. OBJECTIVE: Afebrile, Hemodynamicaly Stable. Last Vital Signs Temp Pulse Resp BP Pulse Ox 98.1 F 62 20 136/88 94 L 10/13/18 14:00 10/13/18 14:00 10/13/18 08:33 10/13/18 14:00 10/13/18 08:33 HEENT - Atraumatic, Normocephalic. Heart - S1, S2, RRR Lungs - few basal crackles. Abdomen - Soft, non-tender. Extremities - no calf tenderness. Laboratory Results - last 24 hr 10/12/18 10/13/18 10/13/18 21:15 05:39 06:10 POC Glucometer 238 194 Phosphorus 3.1 Magnesium 1.9 TSH 1.60 D Free T4 1.56 H 10/13/18 10/13/18 10:53 16:30 POC Glucometer 286 220 Phosphorus Magnesium TSH Free T4 Current Medications Generic Name Dose Route Start Last Admin Trade Name Jose Carlosq PRN Reason Stop Dose Admin Acetaminophen 650 mg 10/11/18 07:09 Tylenol - PO Q4H PRN PAIN Amiodarone HCl 200 mg 10/09/18 10:00 10/13/18 09:18 Cordarone - PO 200 mg DAILY [facility] Administration Apixaban 5 mg 10/08/18 22:00 10/13/18 09:17 Eliquis - PO 5 mg BID [facility] Administration Atorvastatin Calcium 40 mg 10/08/18 22:00 10/12/18 21:14 Lipitor - PO 40 mg HS [facility] Administration Clopidogrel Bisulfate 75 mg 10/09/18 10:00 10/13/18 09:17 Plavix - PO 75 mg DAILY [facility] Administration Fluticasone Propionate 2 spray 10/09/18 10:00 10/13/18 09:21 Flonase - NS 2 spray DAILY [facility] Administration Furosemide 40 mg 10/10/18 11:42 10/13/18 09:17 Lasix - PO 40 mg DAILY [facility] Administration Insulin Aspart 1 vial 10/08/18 22:00 10/13/18 16:48 Novolog Vial Sliding Scale - SQ 2 unit ACHS [facility] Administration Protocol Isosorbide Mononitrate 30 mg 10/10/18 11:45 10/13/18 09:17 Imdur - PO 30 mg DAILY [facility] Administration Losartan Potassium 100 mg 10/11/18 10:00 10/13/18 09:17 Cozaar - PO 100 mg DAILY [facility] Administration Metoprolol Succinate 100 mg 10/12/18 11:59 10/13/18 09:17 Toprol Xl - PO 100 mg BID [facility] Administration Polyethylene Glycol 17 gm 10/11/18 21:45 10/13/18 09:19 Miralax (For Daily Use) - PO Not Given DAILY [facility] Senna/Docusate Sodium 1 tablet 10/10/18 22:00 10/13/18 09:20 Pericolace - PO 1 tablet BID [facility] Administration Home Medications Medication Instructions Recorded Losartan Potassium 100 mg PO DAILY 10/24/15 Atorvastatin Ca [Lipitor] 20 mg PO HS 02/07/17 Amiodarone HCl 200 mg PO DAILY 03/30/18 Apixaban [Eliquis -] 5 mg PO BID 03/30/18 Aspirin [ASA -] 81 mg PO DAILY 03/30/18 Clopidogrel Bisulfate [Plavix -] 75 mg PO DAILY 03/30/18 Fluticasone Prop 0.05% Nasal 1 - 2 spray NS DAILY 03/30/18 [Flonase -] Furosemide [Lasix -] 20 mg PO DAILY 03/30/18 Isosorbide Mononitrate [Isosorbide 30 mg PO DAILY 03/30/18 Mononitrate ER] Meclizine HCl [Antivert -] 12.5 mg PO TID #21 tablet 03/30/18 Dulaglutide [Trulicity] 0.75 mg SQ DAILY 08/28/18 Linaclotide [Linzess] 290 mcg PO DAILY 08/28/18 Metoprolol Succinate [Toprol XL -] 75 mg PO BID #180 tab.sr.24h 08/31/18 Melatonin/Pyridoxine HCl (B6) 1 each PO PRN 10/09/18 [Melatonin 3 mg Tablet] ASSESSMENT AND PLAN: 78 year old male with Atrial fibrillation on Eliquis, HTN, DM 2, CKD III, CAD s/ p PCI, Chronic Diastolic CHF, presented with 1 day history of SOB, found to be in volume overload with HTN urgency. 1. Acute Systolic/Diastolic CHF - clinically improving. Continue Lasix orally. Mild troponinemia secondary to demand. Underlying CAD s/p PCI/Stent. Echo - EF 20%, regional wall motion abnormalities (change from normal echo 09/03), grade III diastolic CHF. ?CAD etiology. Cardiology evaluated and recommended transfer [place] [facility] [place] for [place]. Continue Plavix, BB, ARB, Statin. 2. Atrial Fibrillation with RVR - resolved. Continue Amiodarone/Metoprolol/ Eliquis. 3. Hypertensive Urgency - Controlled on Toprol XL, Cozaar, imdur. 4. CKD 3 - Creat at baseline. 5. DM 2 - oral anti-hypertensives held. Maintain on Novolog sliding scale. 6. HLD - continue Statin DVT Px - on Eliquis.
== END 2018-10-13 17:38 | disposition short-term general hospital (02) | DRG 291 ==
LOC: JER 16:39 → JERBED 18:30 → J4W 10-09 22:40
PROVIDERS: ADMIT Internal Medicine
DX: I13.0 Hypertensive heart and chronic kidney disease with heart failure and stage 1 through stage 4 chronic kidney disease, or unspecified chronic kidney disease (principal); I50.23 Acute on chronic systolic (congestive) heart failure; I16.0 Hypertensive urgency; E11.22 Type 2 diabetes mellitus with diabetic chronic kidney disease; N18.3 Chronic kidney disease, stage 3 (moderate); Z79.4 Long term (current) use of insulin; I48.91 Unspecified atrial fibrillation; Z79.01 Long term (current) use of anticoagulants; I25.10 Atherosclerotic heart disease of native coronary artery without angina pectoris; I45.10 Unspecified right bundle-branch block; Z86.74 Personal history of sudden cardiac arrest; Z87.891 Personal history of nicotine dependence; Z98.61 Coronary angioplasty status
CPT/HCPCS: 36415; 36600; 71045-TC-FY; 78452-TC; 80048; 80053; 82550; 82553; 82803; 82962; 83735; 83880; 84100; 84439; 84443; 84484; 85025; 85027; 85610; 93005; 93010; 93017; 93306-TC; 99285-25; A9502; C1887; J2785

== ENCOUNTER 2020-01-30 16:36 | Emergency (ER) | payer BC, OTHER ==
[2020-01-30 16:42] VITALS: BMI 27.3
[2020-01-30] MEDS ORDERED: ACETAMINOPHEN 325 MG TABLET (FP) PO ONE (17:22)
[2020-01-30] MEDS ORDERED: LACTATED RINGERS SOLUTION 1,000 ML/1,000 ML INFUS.BAG IV ONE (17:22)
[2020-01-30] MEDS ORDERED: ONDANSETRON 4 MG/2 ML VIAL IVPUSH ONE (17:22)
[2020-01-30] MEDS ORDERED: MAG HYDROX/AL HYDROX/SIMETH -MYLANTA- ORAL SUSPENSION PO ONE (17:22)
[2020-01-30] MEDS ORDERED: FAMOTIDINE 20 MG/50 ML IVPB 20 MG/50 ML MG IVPB ONE ×2 (17:22→18:35)
[2020-01-30] MEDS ORDERED: ACETAMINOPHEN 325 MG TABLET (FP) ONE (18:34)
[2020-01-30] MEDS ORDERED: MAG HYDROX/AL HYDROX/SIMETH 30 ML UNIT-DOSE CUP ONE (18:35)
[2020-01-30] MEDS ORDERED: ONDANSETRON 4 MG/2 ML VIAL ONE (18:35)
[2020-01-30 18:38] LABS: BASO % 0.8 % (0-2.0); EOS % 0.9 % (0-4.5); HEMATOCRIT 45.2 % (35.4-49); HEMOGLOBIN 14.7 GM/dL (11.7-16.9); LYMPH % 21.4 % (8-40); MCHC 32.6 g/dl (32.0-35.9); MEAN CELL VOLUME 82.7 fl (80-96); MEAN PLT VOLUME 8.8 fl (7.5-11.1); NEUT % 62.9 % (42.8-82.8); PLATELET COUNT 253 K/MM3 (134-434); RBC 5.47 M/mm3 (4.00-5.60); RDW 17.6 % (11.9-15.9); WHITE BLOOD COUNT 3.9 K/mm3 (4.0-10.0)
[2020-01-30 18:42] LABS: INR 1.01 (0.83-1.09); PROTHROMBIN TIME (PATIENT) 12.2 SEC (9.7-13.0)
[2020-01-30 18:44] LABS: ACTIVATED PTT 27.2 SECONDS (25.2-36.5)
[2020-01-30 18:59] LABS: CHLORIDE 97 mmol/L (98-107); POTASSIUM 4.5 mmol/L (3.5-5.1); SODIUM 132 mmol/L (136-145)
[2020-01-30 19:01] LABS: ALBUMIN 2.3 g/dl (3.4-5.0); ANION GAP 10 MMOL/L (8-16); BLOOD UREA NITROGEN 38.2 mg/dL (7-18); CO2 26 mmol/L (21-32); GLUCOSE,RANDOM 292 mg/dL (74-106)
[2020-01-30 19:04] LABS: CREATININE 2.1 mg/dL (0.55-1.3); SGOT/AST 104 U/L (15-37); SGPT/ALT 141 U/L (13-61)
[2020-01-30 19:06] LABS: BILIRUBIN,TOTAL 5.7 mg/dL (0.2-1); TOT PROT 6.6 g/dl (6.4-8.2)
[2020-01-30 19:07] LABS: ALK PHOS 446 U/L (45-117)
[2020-01-30] MEDS ORDERED: CEFTRIAXONE 1 GM in DEXTROSE 5%-WATER - 100 ML IVPB ONE (22:39)
[2020-01-30] MEDS ORDERED: AZITHROMYCIN IVPB 500 MG in DEXTROSE 5%-WATER - 250 ML IVPB ONE (22:39)
[2020-01-30] MEDS ORDERED: PIPERACILLIN/TAZOB 4.5 GM 4.5 GM in DEXTROSE 5%-WATER 100 ML IVPB ONE (22:42)
[2020-01-30] MEDS ORDERED: VANCOMYCIN 1 GM in D5W (PRE-DOCKED) 1,000 MG/250 ML IVPB ONE (22:42)
[2020-01-30] MEDS ORDERED: VANCOMYCIN 1 GRAM (PRE-DOCKED) 1,000 MG/250 ML BAG IVPB ONE (23:03)
[2020-01-30] MEDS ORDERED: LACTATED RINGERS SOLUTION 1,000 ML/1,000 ML INFUS.BAG IV SCH (23:30)
[2020-01-30 23:59] LABS: EPI CELLS >36 /uL (0-25.1); HYALINE CASTS 24 /uL (0-3.1); URINE APPEARANCE CLOUDY; URINE BILIRUBIN 3+ (NEGATIVE); URINE COLOR DK YELLOW; URINE GLUCOSE (UA) 2+ (NEGATIVE); URINE KETONE TRACE (NEGATIVE); URINE LEUK ESTERASE TRACE (NEGATIVE); URINE NITRITE POSITIVE (NEGATIVE); URINE PROTEIN 1+ (NEGATIVE); URINE WBC 70 /uL (0-25.8)
[2020-01-31 00:50] VITALS: BP 128/91; PULSE 103
[2020-01-31 01:07] LABS: URINE BACTERIA 59.2 /uL (0-1359); URINE RBC 98.7 /uL (0-23.9)
[2020-01-31 01:08] LABS: URINE CRYSTALS NONE SEEN /hpf
[2020-01-31 01:34] VITALS: TEMP 97.5
== END 2020-01-31 01:59 | disposition short-term general hospital (02) ==
LOC: JER 16:36
PROC: 3E033GC Introduction of Other Therapeutic Substance into Peripheral Vein, Percutaneous Approach (ICD-10-PCS; principal; 2020-01-30)
PROC: 3E033GC Introduction of Other Therapeutic Substance into Peripheral Vein, Percutaneous Approach (ICD-10-PCS; 2020-01-30)
PROC: 3E03329 Introduction of Other Anti-infective into Peripheral Vein, Percutaneous Approach (ICD-10-PCS; 2020-01-30)
DX: J18.9 Pneumonia, unspecified organism (principal); N17.9 Acute kidney failure, unspecified; Q44.1 Other congenital malformations of gallbladder
CPT/HCPCS: 36415; 71250-TC; 74176-TC; 76705-TC; 80053; 81003; 82550; 83605; 83690; 84484; 85025; 85610; 85730; 86850; 86900; 86901; 87040; 87086; 93005; 93010; 99285-25

== ENCOUNTER 2020-11-21 09:08 | Inpatient (IN) | payer OTHER ==
[2020-11-21 09:27] VITALS: BMI 24.3
[2020-11-21] MEDS ORDERED: LIDOCAINE 1%/EPI 1:100000 (20 ML MULTI DOSE VIAL) ONE (11:15)
[2020-11-21] MEDS ORDERED: SODIUM CHLORIDE 500 ML IV STA (11:45)
[2020-11-21 11:55] LABS: BASO % 0.5 % (0-2.0); EOS % 2.7 % (0-4.5); HEMATOCRIT 34.6 % (35.4-49); HEMOGLOBIN 11.2 GM/dL (11.7-16.9); LYMPH % 26.4 % (8-40); MCH 27.5 pg (25.7-33.7); MCHC 32.5 g/dl (32.0-35.9); MEAN CELL VOLUME 84.8 fl (80-96); MEAN PLT VOLUME 8.2 fl (7.5-11.1); MONO % 9.2 % (3.8-10.2); NEUT % 61.2 % (42.8-82.8); PLATELET COUNT 270 10^3/uL (134-434); RBC 4.08 M/mm3 (4.00-5.60); RDW 15.7 % (11.9-15.9); WHITE BLOOD COUNT 4.3 K/mm3 (4.0-10.0)
[2020-11-21 12:01] LABS: INR 1.34 (0.83-1.09); PROTHROMBIN TIME (PATIENT) 16.5 SEC (9.7-13.0)
[2020-11-21 12:14] LABS: CHLORIDE 110 mmol/L (98-107); SODIUM 141 mmol/L (136-145)
[2020-11-21 12:16] LABS: ALBUMIN 2.4 g/dl (3.4-5.0); ANION GAP 6 MMOL/L (8-16); BLOOD UREA NITROGEN 42.5 mg/dL (7-18); CALCIUM 8.6 mg/dL (8.5-10.1); CO2 25 mmol/L (21-32); GLUCOSE,RANDOM 204 mg/dL (74-106); MAGNESIUM 1.9 mg/dL (1.8-2.4)
[2020-11-21 12:19] LABS: CREATININE 2.1 mg/dL (0.55-1.3); SGOT/AST 14 U/L (15-37); SGPT/ALT 19 U/L (13-61)
[2020-11-21 12:21] LABS: BILIRUBIN,TOTAL 0.4 mg/dL (0.2-1); TOT PROT 6.6 g/dl (6.4-8.2)
[2020-11-21 12:22] LABS: ALK PHOS 155 U/L (45-117)
[2020-11-21 13:40] LABS: URINE APPEARANCE CLEAR; URINE BILIRUBIN NEGATIVE (NEGATIVE); URINE COLOR YELLOW; URINE GLUCOSE (UA) NEGATIVE (NEGATIVE); URINE KETONE NEGATIVE (NEGATIVE); URINE LEUK ESTERASE NEGATIVE (NEGATIVE); URINE NITRITE NEGATIVE (NEGATIVE); URINE PROTEIN TRACE (NEGATIVE); URINE UROBILINOGEN 0.2 mg/dL (0.2-1.0)
[2020-11-21] MEDS ORDERED: SODIUM CHLORIDE 1,000 ML IV SCH (15:45)
[2020-11-21] MEDS: INSULIN SLIDING SCALE (NOVOLOG) 1 VIAL SQ SCH (19:39)
[2020-11-21] MEDS ORDERED: MECLIZINE HCL 12.5 MG TABLET PO PRN (22:00)
[2020-11-21] MEDS ORDERED: APIXABAN 5 MG TABLET PO SCH (22:00)
[2020-11-21] MEDS ORDERED: ATORVASTATIN CA 20 MG TABLET (FP) ONE (22:03)
[2020-11-21] MEDS ORDERED: APIXABAN 2.5 MG TABLET ONE (22:04)
[2020-11-21] MEDS ORDERED: metoPROLOL SUCCINATE 25 MG TAB.SR.24H (FP) ONE (22:04)
[2020-11-21] MEDS: metoPROLOL SUCCINATE 25 MG TAB.SR.24H (FP) PO SCH (22:18)
[2020-11-21] MEDS: ATORVASTATIN CA 20 MG TABLET (FP) PO SCH (22:18)
[2020-11-21] MEDS: INSULIN (LEVEMIR) 100 UNITS/ML UNITS SQ SCH (22:18)
[2020-11-21] MEDS: APIXABAN 2.5 MG TABLET PO SCH (22:18)
[2020-11-22] MEDS: INSULIN SLIDING SCALE (NOVOLOG) 1 VIAL SQ SCH ×3 (06:03→17:29)
[2020-11-22 08:04] LABS: BASO % 0.5 % (0-2.0); EOS % 5.9 % (0-4.5); HEMATOCRIT 33.9 % (35.4-49); HEMOGLOBIN 11.2 GM/dL (11.7-16.9); LYMPH % 33.2 % (8-40); MCH 27.8 pg (25.7-33.7); MCHC 32.9 g/dl (32.0-35.9); MEAN CELL VOLUME 84.3 fl (80-96); MEAN PLT VOLUME 8.1 fl (7.5-11.1); MONO % 9.6 % (3.8-10.2); NEUT % 50.8 % (42.8-82.8); PLATELET COUNT 247 10^3/uL (134-434); RBC 4.02 M/mm3 (4.00-5.60)
[2020-11-22 08:25] LABS: CALCIUM 8.6 mg/dL (8.5-10.1); MAGNESIUM 1.9 mg/dL (1.8-2.4)
[2020-11-22 08:26] LABS: ALBUMIN 2.4 g/dl (3.4-5.0); BLOOD UREA NITROGEN 35.5 mg/dL (7-18)
[2020-11-22 08:29] LABS: CREATININE 1.8 mg/dL (0.55-1.3)
[2020-11-22 08:30] LABS: BILIRUBIN,TOTAL 0.3 mg/dL (0.2-1); TOT PROT 6.6 g/dl (6.4-8.2)
[2020-11-22] MEDS ORDERED: CLOPIDOGREL BISULFATE 75 MG TABLET (FP) PO SCH (10:00)
[2020-11-22] MEDS: metoPROLOL SUCCINATE 25 MG TAB.SR.24H (FP) PO SCH ×2 (10:40→21:39)
[2020-11-22] MEDS: AMIODARONE HCL 200 MG TABLET PO SCH (10:40)
[2020-11-22] MEDS: ASPIRIN 81 MG CHEWABLE TABLETS PO SCH (10:40)
[2020-11-22] MEDS: APIXABAN 2.5 MG TABLET PO SCH ×2 (10:40→21:39)
[2020-11-22] MEDS: ISOSORBIDE MONONITRATE 30 MG TAB.SR.24H (FP) PO SCH (10:41)
[2020-11-22] MEDS: FUROSEMIDE 40 MG/4 ML INJECTABLE VIAL IVPUSH SCH (10:41)
[2020-11-22] MEDS: FLUTICASONE PROP 0.05% 16 GM NASAL SPRAY NS SCH ×2 (10:41→10:53)
[2020-11-22 12:50] LABS: CREATININE, URINE RANDOM < 13.0 mg/dL (30-150)
[2020-11-22] MEDS ORDERED: MAGNESIUM SULF 50% (8.12 MEQ/2 ML-1 GM VIAL) IVPB ONE (14:26)
[2020-11-22] MEDS ORDERED: cefTRIAXone SODIUM 1 GM VIAL ONE (15:39)
[2020-11-22] MEDS ORDERED: DEXTROSE 5%-WATER 100 ML IVPB ONE (15:39)
[2020-11-22] MEDS: CEFTRIAXONE 1 GM in DEXTROSE 5%-WATER 100 ML IVPB SCH (15:46)
[2020-11-22] MEDS: ATORVASTATIN CA 20 MG TABLET (FP) PO SCH (21:40)
[2020-11-22] MEDS: INSULIN (LEVEMIR) 100 UNITS/ML UNITS SQ SCH (21:40)
[2020-11-22] MEDS ORDERED: CIPROFLOXACIN 500 MG TABLET (RESTRICTED TO ID) PO SCH (22:00)
[2020-11-23] MEDS: INSULIN SLIDING SCALE (NOVOLOG) 1 VIAL SQ SCH ×3 (06:09→17:31)
[2020-11-23 06:27] LABS: BASO % 0.4 % (0-2.0); EOS % 5.6 % (0-4.5); HEMATOCRIT 35.5 % (35.4-49); HEMOGLOBIN 11.5 GM/dL (11.7-16.9); LYMPH % 31.2 % (8-40); MCH 27.5 pg (25.7-33.7); MCHC 32.4 g/dl (32.0-35.9); MEAN CELL VOLUME 84.8 fl (80-96); MEAN PLT VOLUME 8.5 fl (7.5-11.1); MONO % 11.2 % (3.8-10.2); NEUT % 51.6 % (42.8-82.8); PLATELET COUNT 261 10^3/uL (134-434); RBC 4.19 M/mm3 (4.00-5.60); RDW 15.8 % (11.9-15.9); WHITE BLOOD COUNT 4.9 K/mm3 (4.0-10.0)
[2020-11-23 06:54] LABS: CALCIUM 8.8 mg/dL (8.5-10.1)
[2020-11-23 06:55] LABS: ALBUMIN 2.5 g/dl (3.4-5.0); BLOOD UREA NITROGEN 42.4 mg/dL (7-18); MAGNESIUM 2.4 mg/dL (1.8-2.4)
[2020-11-23 06:58] LABS: BILIRUBIN,TOTAL 0.3 mg/dL (0.2-1); PHOSPHOROUS 3.4 mg/dL (2.5-4.9); TOT PROT 6.7 g/dl (6.4-8.2)
[2020-11-23] MEDS ORDERED: TAMSULOSIN HCL 0.4 MG CAP PO SCH (08:30)
[2020-11-23] MEDS ORDERED: DEXTROSE 5%-WATER 100 ML IVPB ONE (08:52)
[2020-11-23] MEDS ORDERED: cefTRIAXone SODIUM 1 GM VIAL ONE (08:52)
[2020-11-23] MEDS ORDERED: PT OWN MED DRAWER 7, Y5N ONE (08:52)
[2020-11-23] MEDS: metoPROLOL SUCCINATE 25 MG TAB.SR.24H (FP) PO SCH ×2 (09:04→21:27)
[2020-11-23] MEDS: ISOSORBIDE MONONITRATE 30 MG TAB.SR.24H (FP) PO SCH (09:05)
[2020-11-23] MEDS: APIXABAN 2.5 MG TABLET PO SCH ×2 (09:05→21:27)
[2020-11-23] MEDS: ASPIRIN 81 MG CHEWABLE TABLETS PO SCH (09:05)
[2020-11-23] MEDS: AMIODARONE HCL 200 MG TABLET PO SCH (09:05)
[2020-11-23] MEDS: CEFTRIAXONE 1 GM in DEXTROSE 5%-WATER 100 ML IVPB SCH (09:08)
[2020-11-23] MEDS: FUROSEMIDE 40 MG/4 ML INJECTABLE VIAL IVPUSH SCH (09:08)
[2020-11-23] MEDS: FLUTICASONE PROP 0.05% 16 GM NASAL SPRAY NS SCH (09:31)
[2020-11-23] MEDS ORDERED: PATIENT'S OWN MEDICATION (NON-FORMULARY) (Metoprolol Succinate [Kapspargo Sprinkle] 100 MG PO SCH (10:00)
[2020-11-23] MEDS: INSULIN (LEVEMIR) 100 UNITS/ML UNITS SQ SCH (21:27)
[2020-11-23] MEDS: ATORVASTATIN CA 20 MG TABLET (FP) PO SCH (21:27)
[2020-11-23 22:46] VITALS: BP 123/63; PULSE 67; TEMP 98.1
[2020-11-24] MEDS ORDERED: FUROSEMIDE 20 MG TABLET (FP) PO SCH (10:00)
== END 2020-11-24 | disposition home or self-care (01) | DRG 291 ==
LOC: JER 09:08 → JERBED 14:34 → J4S 11-22 02:54
PROVIDERS: ADMIT Internal Medicine
DX: I13.0 Hypertensive heart and chronic kidney disease with heart failure and stage 1 through stage 4 chronic kidney disease, or unspecified chronic kidney disease (principal); I50.43 Acute on chronic combined systolic (congestive) and diastolic (congestive) heart failure; N17.9 Acute kidney failure, unspecified; N39.0 Urinary tract infection, site not specified; I42.8 Other cardiomyopathies; I25.10 Atherosclerotic heart disease of native coronary artery without angina pectoris; I44.4 Left anterior fascicular block; F03.90 Unspecified dementia, unspecified severity, without behavioral disturbance, psychotic disturbance, mood disturbance, and anxiety; E11.22 Type 2 diabetes mellitus with diabetic chronic kidney disease; L98.8 Other specified disorders of the skin and subcutaneous tissue; Z98.61 Coronary angioplasty status; E78.5 Hyperlipidemia, unspecified; I45.10 Unspecified right bundle-branch block; Z79.4 Long term (current) use of insulin; N18.30 Chronic kidney disease, stage 3 unspecified; E86.0 Dehydration; E87.5 Hyperkalemia; Z86.16 Personal history of COVID-19
CPT/HCPCS: 36415; 71045-TC-FY; 76775-TC; 80048; 80053; 81003; 82550; 82570; 82962; 83036; 83735; 83880; 84100; 84156; 84300; 84443; 84484; 85025; 85610; 86850; 86900; 86901; 87086; 93005; 93010; 93306-TC; 97116-GP; 97161-GP; 99285-25; C9803; U0003; U0005

== ENCOUNTER 2021-09-05 08:13 | Emergency (ER) | payer OTHER ==
[2021-09-05 08:23] VITALS: BP 127/76; PULSE 77; TEMP 97.7; BMI 25.1
== END 2021-09-05 12:45 | disposition home or self-care (01) ==
LOC: JER 08:13
DX: I87.2 Venous insufficiency (chronic) (peripheral) (principal)
CPT/HCPCS: 73590-TC-RT-FY; 93971-TC; 99284-25

== ENCOUNTER 2022-01-25 08:57 | Inpatient (IN) | payer OTHER ==
[2022-01-25 11:19] LABS: HEMATOCRIT 43.9 % (35.4-49); HEMOGLOBIN 13.7 GM/dL (11.7-16.9); MCH 25.8 pg (25.7-33.7); MCHC 31.3 g/dl (32.0-35.9); MEAN CELL VOLUME 82.3 fl (80-96); MEAN PLT VOLUME 8.7 fl (7.5-11.1); PLATELET COUNT 327 10^3/uL (134-434); RBC 5.33 M/mm3 (4.00-5.60); RDW 16.2 % (11.9-15.9); WHITE BLOOD COUNT 4.2 K/mm3 (4.0-10.0)
[2022-01-25 11:37] LABS: CHLORIDE 104 mmol/L (98-107); SODIUM 143 mmol/L (136-145)
[2022-01-25 11:39] LABS: CALCIUM 9.5 mg/dL (8.5-10.1)
[2022-01-25 11:40] LABS: ALBUMIN 2.5 g/dl (3.4-5.0); BLOOD UREA NITROGEN 55.1 mg/dL (7-18); CO2 29 mmol/L (21-32); GLUCOSE,RANDOM 189 mg/dL (74-106); MAGNESIUM 2.5 mg/dL (1.8-2.4)
[2022-01-25 11:43] LABS: CREATININE 2.8 mg/dL (0.55-1.3); PHOSPHOROUS 4.2 mg/dL (2.5-4.9); SGOT/AST 64 U/L (15-37); SGPT/ALT 19 U/L (13-61)
[2022-01-25 11:44] LABS: BILIRUBIN,TOTAL 1.2 mg/dL (0.2-1)
[2022-01-25 11:46] LABS: ALK PHOS 140 U/L (45-117); INR 1.46 (0.83-1.09); PROTHROMBIN TIME (PATIENT) 16.9 SEC (9.7-13.0)
[2022-01-25 11:48] LABS: N-TERMINAL BNP 8308.8 pg/ml (5-450)
[2022-01-25 11:58] LABS: ANION GAP 9 MMOL/L (8-16)
[2022-01-25] MEDS ORDERED: FUROSEMIDE 40 MG/4 ML INJECTABLE VIAL IVPUSH ONE (12:05)
[2022-01-25 12:28] LABS: ANISOCYTOSIS 0; HELMET CELLS 0; HOWELL-JOLLY BODIES 0; MACROCYTOSIS 0; OVALOCYTE 0; ROULEAU 0; SICKELED CELLS 0; TARGET CELLS 0; TEAR DROP CELLS 0; TOXIC GRANULATION 0
[2022-01-25] MEDS ORDERED: FUROSEMIDE 40 MG/4 ML INJECTABLE VIAL ONE (12:38)
[2022-01-25 14:12] LABS: BLOOD UREA NITROGEN 50.8 mg/dL (7-18); CALCIUM 9.9 mg/dL (8.5-10.1)
[2022-01-25 14:16] LABS: CREATININE 2.8 mg/dL (0.55-1.3)
[2022-01-25] MEDS: INSULIN SLIDING SCALE (NOVOLOG) 1 VIAL SQ SCH (18:09)
[2022-01-26 07:06] LABS: HEMATOCRIT 45.2 % (35.4-49); HEMOGLOBIN 13.9 GM/dL (11.7-16.9); MCH 25.4 pg (25.7-33.7); MCHC 30.8 g/dl (32.0-35.9); MEAN CELL VOLUME 82.6 fl (80-96); MEAN PLT VOLUME 8.8 fl (7.5-11.1); PLATELET COUNT 348 10^3/uL (134-434); RBC 5.46 M/mm3 (4.00-5.60); RDW 16.4 % (11.9-15.9); WHITE BLOOD COUNT 4.3 K/mm3 (4.0-10.0)
[2022-01-26 07:35] LABS: ALBUMIN 2.6 g/dl (3.4-5.0); BLOOD UREA NITROGEN 51.7 mg/dL (7-18); CALCIUM 9.4 mg/dL (8.5-10.1)
[2022-01-26 07:38] LABS: BILIRUBIN,TOTAL 0.8 mg/dL (0.2-1)
[2022-01-26 07:39] LABS: CREATININE 2.7 mg/dL (0.55-1.3); TOT PROT 6.5 g/dl (6.4-8.2)
[2022-01-26] MEDS: INSULIN (LEVEMIR) 100 UNITS/ML UNITS SQ SCH ×2 (08:46→23:05)
[2022-01-26] MEDS: APIXABAN 2.5 MG TABLET PO SCH ×3 (08:46→23:05)
[2022-01-26] MEDS: ATORVASTATIN CA 20 MG TABLET (FP) PO SCH ×2 (08:47→23:05)
[2022-01-26] MEDS: INSULIN SLIDING SCALE (NOVOLOG) 1 VIAL SQ SCH ×5 (08:47→23:05)
[2022-01-26] MEDS ORDERED: APIXABAN 2.5 MG TABLET ONE ×2 (10:04→22:45)
[2022-01-26] MEDS ORDERED: AMIODARONE HCL 200 MG TABLET ONE (10:04)
[2022-01-26] MEDS: ASPIRIN 81 MG CHEWABLE TABLETS PO SCH (10:10)
[2022-01-26] MEDS: ISOSORBIDE MONONITRATE 30 MG TAB.SR.24H (FP) PO SCH (10:11)
[2022-01-26] MEDS: AMIODARONE HCL 200 MG TABLET PO SCH (10:11)
[2022-01-26 12:40] LABS: MAGNESIUM 2.3 mg/dL (1.8-2.4)
[2022-01-26 12:44] LABS: PHOSPHOROUS 3.8 mg/dL (2.5-4.9)
[2022-01-26] MEDS ORDERED: FUROSEMIDE 40 MG/4 ML INJECTABLE VIAL ONE (12:56)
[2022-01-26] MEDS: FUROSEMIDE 40 MG/4 ML INJECTABLE VIAL IVPUSH SCH (13:01)
[2022-01-26 14:31] LABS: EPI CELLS 3 /uL (0-25.1); HYALINE CASTS 0 /uL (0-3.1); PH,URINE 5.5 (5.0-8.0); URINE APPEARANCE CLEAR; URINE BACTERIA 2 /uL (0-1359); URINE BILIRUBIN NEGATIVE (NEGATIVE); URINE COLOR YELLOW; URINE GLUCOSE (UA) 3+ (NEGATIVE); URINE KETONE NEGATIVE (NEGATIVE); URINE LEUK ESTERASE NEGATIVE (NEGATIVE); URINE NITRITE NEGATIVE (NEGATIVE); URINE PROTEIN 2+ (NEGATIVE); URINE RBC 9 /uL (0-23.9); URINE UROBILINOGEN 0.2 mg/dL (0.2-1.0); URINE WBC 3 /uL (0-25.8)
[2022-01-26] MEDS ORDERED: DIGOXIN 0.125 MG TABLET ONE (15:16)
[2022-01-26] MEDS: DIGOXIN 0.125 MG TABLET PO SCH (15:23)
[2022-01-26] MEDS ORDERED: ATORVASTATIN CA 20 MG TABLET (FP) ONE (22:45)
[2022-01-27] MEDS: INSULIN SLIDING SCALE (NOVOLOG) 1 VIAL SQ SCH ×4 (08:25→22:30)
[2022-01-27 08:37] LABS: BASO % 0.4 % (0-2.0); EOS % 1.7 % (0-4.5); HEMOGLOBIN 13.8 GM/dL (11.7-16.9); LYMPH % 32.4 % (8-40); MCH 25.8 pg (25.7-33.7); MCHC 31.5 g/dl (32.0-35.9); MEAN PLT VOLUME 9.1 fl (7.5-11.1); MONO % 11.1 % (3.8-10.2); NEUT % 54.4 % (42.8-82.8); PLATELET COUNT 363 10^3/uL (134-434); RBC 5.36 M/mm3 (4.00-5.60); RDW 16.4 % (11.9-15.9)
[2022-01-27] MEDS ORDERED: APIXABAN 2.5 MG TABLET ONE ×2 (08:47→22:39)
[2022-01-27] MEDS ORDERED: AMIODARONE HCL 200 MG TABLET ONE (08:47)
[2022-01-27] MEDS ORDERED: DIGOXIN 0.125 MG TABLET ONE (08:47)
[2022-01-27] MEDS ORDERED: ASPIRIN 81 MG CHEWABLE TABLETS ONE (08:47)
[2022-01-27] MEDS ORDERED: FUROSEMIDE 40 MG/4 ML INJECTABLE VIAL ONE (08:48)
[2022-01-27] MEDS ORDERED: ISOSORBIDE MONONITRATE 30 MG TAB.SR.24H (FP) PO ONE (08:48)
[2022-01-27 08:59] LABS: CALCIUM 9.4 mg/dL (8.5-10.1)
[2022-01-27 09:00] LABS: ALBUMIN 2.7 g/dl (3.4-5.0); BLOOD UREA NITROGEN 62.3 mg/dL (7-18)
[2022-01-27 09:03] LABS: CREATININE 3.2 mg/dL (0.55-1.3)
[2022-01-27 09:04] LABS: TOT PROT 6.8 g/dl (6.4-8.2)
[2022-01-27] MEDS: APIXABAN 2.5 MG TABLET PO SCH ×2 (09:04→22:30)
[2022-01-27] MEDS: ISOSORBIDE MONONITRATE 30 MG TAB.SR.24H (FP) PO SCH (09:04)
[2022-01-27] MEDS: AMIODARONE HCL 200 MG TABLET PO SCH (09:04)
[2022-01-27] MEDS: DIGOXIN 0.125 MG TABLET PO SCH (09:04)
[2022-01-27] MEDS: ASPIRIN 81 MG CHEWABLE TABLETS PO SCH (09:04)
[2022-01-27 09:05] LABS: BILIRUBIN,TOTAL 0.9 mg/dL (0.2-1)
[2022-01-27] MEDS: FUROSEMIDE 40 MG/4 ML INJECTABLE VIAL IVPUSH SCH (09:05)
[2022-01-27] MEDS: FLUTICASONE PROP 0.05% 16 GM NASAL SPRAY NS SCH (11:34)
[2022-01-27] MEDS: INSULIN (LEVEMIR) 100 UNITS/ML UNITS SQ SCH (22:30)
[2022-01-27] MEDS: ATORVASTATIN CA 20 MG TABLET (FP) PO SCH (22:30)
[2022-01-27] MEDS ORDERED: ATORVASTATIN CA 20 MG TABLET (FP) ONE (22:39)
[2022-01-27] MEDS: PATIENT'S OWN MEDICATION (NON-FORMULARY) (Dulaglutide [Trulicity] 0.75 MG/0.5 ML Pen.Injct SQ SCH (23:17)
[2022-01-28] MEDS: INSULIN SLIDING SCALE (NOVOLOG) 1 VIAL SQ SCH ×4 (08:25→23:44)
[2022-01-28] MEDS: ASPIRIN 81 MG CHEWABLE TABLETS PO SCH (11:08)
[2022-01-28] MEDS: APIXABAN 2.5 MG TABLET PO SCH ×2 (11:09→23:25)
[2022-01-28] MEDS: AMIODARONE HCL 200 MG TABLET PO SCH (11:09)
[2022-01-28] MEDS: FUROSEMIDE 40 MG/4 ML INJECTABLE VIAL IVPUSH SCH (11:10)
[2022-01-28] MEDS: FLUTICASONE PROP 0.05% 16 GM NASAL SPRAY NS SCH (11:31)
[2022-01-28] MEDS: DIGOXIN 0.125 MG TABLET PO SCH (12:08)
[2022-01-28] MEDS: ISOSORBIDE MONONITRATE 30 MG TAB.SR.24H (FP) PO SCH (12:08)
[2022-01-28] MEDS: INSULIN (LEVEMIR) 100 UNITS/ML UNITS SQ SCH (23:25)
[2022-01-28] MEDS: ATORVASTATIN CA 20 MG TABLET (FP) PO SCH (23:25)
[2022-01-29] MEDS: INSULIN SLIDING SCALE (NOVOLOG) 1 VIAL SQ SCH ×4 (06:42→21:30)
[2022-01-29 10:36] LABS: CALCIUM 9.5 mg/dL (8.5-10.1)
[2022-01-29 10:37] LABS: ALBUMIN 2.5 g/dl (3.4-5.0); BLOOD UREA NITROGEN 80.6 mg/dL (7-18)
[2022-01-29 10:39] LABS: CREATININE 3.6 mg/dL (0.55-1.3)
[2022-01-29 10:41] LABS: BILIRUBIN,TOTAL 0.9 mg/dL (0.2-1); TOT PROT 6.6 g/dl (6.4-8.2)
[2022-01-29] MEDS: ASPIRIN 81 MG CHEWABLE TABLETS PO SCH (10:55)
[2022-01-29] MEDS: AMIODARONE HCL 200 MG TABLET PO SCH (10:55)
[2022-01-29] MEDS: APIXABAN 2.5 MG TABLET PO SCH ×2 (10:56→21:57)
[2022-01-29] MEDS: FUROSEMIDE 40 MG/4 ML INJECTABLE VIAL IVPUSH SCH (10:56)
[2022-01-29] MEDS: FLUTICASONE PROP 0.05% 16 GM NASAL SPRAY NS SCH (10:59)
[2022-01-29] MEDS ORDERED: INSULIN (NOVOLOG) ASPART 100 UNITS/ML 10ML VIAL ONE (17:18)
[2022-01-29] MEDS: ATORVASTATIN CA 20 MG TABLET (FP) PO SCH (21:57)
[2022-01-29] MEDS: INSULIN (LEVEMIR) 100 UNITS/ML UNITS SQ SCH (21:57)
[2022-01-30] MEDS: INSULIN SLIDING SCALE (NOVOLOG) 1 VIAL SQ SCH ×4 (06:23→22:30)
[2022-01-30 09:38] LABS: BASO % 0.4 % (0-2.0); EOS % 2.6 % (0-4.5); HEMATOCRIT 42.9 % (35.4-49); HEMOGLOBIN 13.3 GM/dL (11.7-16.9); LYMPH % 20.5 % (8-40); MCH 25.4 pg (25.7-33.7); MCHC 30.9 g/dl (32.0-35.9); MEAN CELL VOLUME 82.2 fl (80-96); MEAN PLT VOLUME 8.8 fl (7.5-11.1); MONO % 13.1 % (3.8-10.2); NEUT % 63.4 % (42.8-82.8); PLATELET COUNT 352 10^3/uL (134-434); RBC 5.22 M/mm3 (4.00-5.60); RDW 16.7 % (11.9-15.9); WHITE BLOOD COUNT 4.6 K/mm3 (4.0-10.0)
[2022-01-30] MEDS: APIXABAN 2.5 MG TABLET PO SCH ×2 (09:46→22:29)
[2022-01-30] MEDS: ASPIRIN 81 MG CHEWABLE TABLETS PO SCH (09:46)
[2022-01-30] MEDS: FLUTICASONE PROP 0.05% 16 GM NASAL SPRAY NS SCH (09:46)
[2022-01-30] MEDS: AMIODARONE HCL 200 MG TABLET PO SCH (09:46)
[2022-01-30 09:52] LABS: BLOOD UREA NITROGEN 80.6 mg/dL (7-18)
[2022-01-30 09:56] LABS: CREATININE 3.4 mg/dL (0.55-1.3)
[2022-01-30] MEDS ORDERED: FUROSEMIDE 40 MG TABLET (FP) PO SCH (10:00)
[2022-01-30] MEDS ORDERED: INSULIN (NOVOLOG) ASPART 100 UNITS/ML 10ML VIAL ONE (21:26)
[2022-01-30] MEDS: ATORVASTATIN CA 20 MG TABLET (FP) PO SCH (22:29)
[2022-01-30] MEDS: INSULIN (LEVEMIR) 100 UNITS/ML UNITS SQ SCH (22:31)
[2022-01-31] MEDS: INSULIN SLIDING SCALE (NOVOLOG) 1 VIAL SQ SCH ×4 (06:26→21:25)
[2022-01-31] MEDS: ASPIRIN 81 MG CHEWABLE TABLETS PO SCH (09:36)
[2022-01-31] MEDS: APIXABAN 2.5 MG TABLET PO SCH ×2 (09:36→21:24)
[2022-01-31] MEDS: AMIODARONE HCL 200 MG TABLET PO SCH (09:36)
[2022-01-31] MEDS: FLUTICASONE PROP 0.05% 16 GM NASAL SPRAY NS SCH (09:36)
[2022-01-31] MEDS: TORSEMIDE 20 MG TABLET (FP) PO SCH (09:36)
[2022-01-31 11:13] LABS: CALCIUM 9.2 mg/dL (8.5-10.1)
[2022-01-31 11:19] LABS: CREATININE 2.9 mg/dL (0.55-1.3)
[2022-01-31] MEDS ORDERED: INSULIN (NOVOLOG) ASPART 100 UNITS/ML 10ML VIAL ONE (21:07)
[2022-01-31] MEDS: ATORVASTATIN CA 20 MG TABLET (FP) PO SCH (21:24)
[2022-01-31] MEDS: INSULIN (LEVEMIR) 100 UNITS/ML UNITS SQ SCH (21:24)
[2022-02-01] MEDS ORDERED: DEXTROSE 50%-WATER 25 GM/50 ML DISP.SYRIN IVPUSH ONE (05:47)
[2022-02-01] MEDS ORDERED: DEXTROSE 50%-WATER 25 GM/50 ML DISP.SYRIN ONE (06:02)
[2022-02-01] MEDS: INSULIN SLIDING SCALE (NOVOLOG) 1 VIAL SQ SCH ×4 (06:24→21:33)
[2022-02-01] MEDS: ASPIRIN 81 MG CHEWABLE TABLETS PO SCH (09:58)
[2022-02-01] MEDS: FLUTICASONE PROP 0.05% 16 GM NASAL SPRAY NS SCH (09:59)
[2022-02-01] MEDS: APIXABAN 2.5 MG TABLET PO SCH ×2 (09:59→21:44)
[2022-02-01] MEDS: AMIODARONE HCL 200 MG TABLET PO SCH (09:59)
[2022-02-01] MEDS: TORSEMIDE 20 MG TABLET (FP) PO SCH (09:59)
[2022-02-01 11:05] LABS: BLOOD UREA NITROGEN 90.1 mg/dL (7-18); CALCIUM 9.1 mg/dL (8.5-10.1); CREATININE 3.3 mg/dL (0.55-1.3)
[2022-02-01] MEDS ORDERED: INSULIN (NOVOLOG) ASPART 100 UNITS/ML 10ML VIAL ONE (11:20)
[2022-02-01 13:28] VITALS: BMI 24.7
[2022-02-01] MEDS: ATORVASTATIN CA 20 MG TABLET (FP) PO SCH (21:44)
[2022-02-01] MEDS: INSULIN (LEVEMIR) 100 UNITS/ML UNITS SQ SCH (21:48)
[2022-02-02] MEDS ORDERED: DEXTROSE 50%-WATER 25 GM/50 ML DISP.SYRIN IVPUSH ONE (06:15)
[2022-02-02] MEDS: INSULIN SLIDING SCALE (NOVOLOG) 1 VIAL SQ SCH ×4 (07:34→22:31)
[2022-02-02] MEDS: APIXABAN 2.5 MG TABLET PO SCH ×2 (10:14→22:17)
[2022-02-02] MEDS: ASPIRIN 81 MG CHEWABLE TABLETS PO SCH (10:14)
[2022-02-02] MEDS: FLUTICASONE PROP 0.05% 16 GM NASAL SPRAY NS SCH (10:14)
[2022-02-02] MEDS: TORSEMIDE 20 MG TABLET (FP) PO SCH (10:14)
[2022-02-02] MEDS: AMIODARONE HCL 200 MG TABLET PO SCH (10:14)
[2022-02-02] MEDS ORDERED: SENNOSIDES 8.6MG TABLET (FP) PO PRN (20:55)
[2022-02-02] MEDS: DOCUSATE SODIUM 100 MG CAPSULE (FP) PO SCH (22:16)
[2022-02-02] MEDS: POLYETHYLENE GLYCOL (HEALTHYLAX) 3350 17 GM PACKET PO SCH (22:17)
[2022-02-02] MEDS: ATORVASTATIN CA 20 MG TABLET (FP) PO SCH (22:17)
[2022-02-02] MEDS: INSULIN (LEVEMIR) 100 UNITS/ML UNITS SQ SCH (22:17)
[2022-02-03] MEDS: DOCUSATE SODIUM 100 MG CAPSULE (FP) PO SCH ×3 (06:31→21:54)
[2022-02-03] MEDS: INSULIN SLIDING SCALE (NOVOLOG) 1 VIAL SQ SCH ×4 (06:31→21:55)
[2022-02-03] MEDS ORDERED: INSULIN (NOVOLOG) ASPART 100 UNITS/ML 10ML VIAL ONE ×3 (06:47→16:16)
[2022-02-03] MEDS: TORSEMIDE 20 MG TABLET (FP) PO SCH (09:21)
[2022-02-03] MEDS: POLYETHYLENE GLYCOL (HEALTHYLAX) 3350 17 GM PACKET PO SCH ×2 (09:21→21:55)
[2022-02-03] MEDS: APIXABAN 2.5 MG TABLET PO SCH ×2 (09:21→21:54)
[2022-02-03] MEDS: ASPIRIN 81 MG CHEWABLE TABLETS PO SCH (09:21)
[2022-02-03] MEDS: AMIODARONE HCL 200 MG TABLET PO SCH (09:21)
[2022-02-03] MEDS: FLUTICASONE PROP 0.05% 16 GM NASAL SPRAY NS SCH (09:21)
[2022-02-03 10:33] LABS: EOS % 1.7 % (0-4.5); HEMATOCRIT 44.5 % (35.4-49); HEMOGLOBIN 13.9 GM/dL (11.7-16.9); LYMPH % 20.8 % (8-40); MCH 25.3 pg (25.7-33.7); MCHC 31.2 g/dl (32.0-35.9); MEAN CELL VOLUME 80.9 fl (80-96); MEAN PLT VOLUME 8.9 fl (7.5-11.1); MONO % 15.7 % (3.8-10.2); NEUT % 60.8 % (42.8-82.8); PLATELET COUNT 326 10^3/uL (134-434); RDW 17.1 % (11.9-15.9); WHITE BLOOD COUNT 4.2 K/mm3 (4.0-10.0)
[2022-02-03 10:56] LABS: CHLORIDE 103 mmol/L (98-107); SODIUM 140 mmol/L (136-145)
[2022-02-03 10:59] LABS: ALBUMIN 2.7 g/dl (3.4-5.0); ANION GAP 13 MMOL/L (8-16); CO2 24 mmol/L (21-32); GLUCOSE,RANDOM 165 mg/dL (74-106)
[2022-02-03 11:00] LABS: CALCIUM 9.2 mg/dL (8.5-10.1); MAGNESIUM 2.6 mg/dL (1.8-2.4)
[2022-02-03 11:04] LABS: ALK PHOS 200 U/L (45-117); CREATININE 4.1 mg/dL (0.55-1.3); PHOSPHOROUS 4.7 mg/dL (2.5-4.9); SGOT/AST 36 U/L (15-37); SGPT/ALT 38 U/L (13-61)
[2022-02-03 11:05] LABS: BILIRUBIN,TOTAL 0.8 mg/dL (0.2-1); TOT PROT 6.9 g/dl (6.4-8.2)
[2022-02-03 11:15] LABS: BLOOD UREA NITROGEN 110.3 mg/dL (7-18)
[2022-02-03] MEDS ORDERED: SODIUM ZIRCONIUM CYCLOSILICATE (LOKELMA) 5 GM PACKET PO ONE ×2 (12:43→13:14)
[2022-02-03] MEDS ORDERED: FUROSEMIDE 40 MG/4 ML INJECTABLE VIAL IVPUSH SCH (12:45)
[2022-02-03] MEDS: ATORVASTATIN CA 20 MG TABLET (FP) PO SCH (21:54)
[2022-02-03] MEDS: INSULIN (LEVEMIR) 100 UNITS/ML UNITS SQ SCH (21:56)
[2022-02-04] MEDS: DOCUSATE SODIUM 100 MG CAPSULE (FP) PO SCH ×3 (05:40→22:42)
[2022-02-04] MEDS: INSULIN SLIDING SCALE (NOVOLOG) 1 VIAL SQ SCH ×4 (06:23→22:43)
[2022-02-04] MEDS: ASPIRIN 81 MG CHEWABLE TABLETS PO SCH (10:02)
[2022-02-04] MEDS: FLUTICASONE PROP 0.05% 16 GM NASAL SPRAY NS SCH (10:02)
[2022-02-04] MEDS: APIXABAN 2.5 MG TABLET PO SCH ×2 (10:02→22:42)
[2022-02-04] MEDS: AMIODARONE HCL 200 MG TABLET PO SCH (10:02)
[2022-02-04] MEDS: POLYETHYLENE GLYCOL (HEALTHYLAX) 3350 17 GM PACKET PO SCH ×2 (10:03→22:42)
[2022-02-04 16:12] LABS: BASO % 0.4 % (0-2.0); EOS % 1.4 % (0-4.5); HEMOGLOBIN 13.6 GM/dL (11.7-16.9); LYMPH % 15.1 % (8-40); MCHC 30.9 g/dl (32.0-35.9); MEAN CELL VOLUME 80.7 fl (80-96); MEAN PLT VOLUME 9.1 fl (7.5-11.1); MONO % 10.5 % (3.8-10.2); NEUT % 72.6 % (42.8-82.8); PLATELET COUNT 296 10^3/uL (134-434); RBC 5.45 M/mm3 (4.00-5.60); RDW 17.3 % (11.9-15.9); WHITE BLOOD COUNT 5.5 K/mm3 (4.0-10.0)
[2022-02-04 16:23] LABS: CHLORIDE 104 mmol/L (98-107); SODIUM 142 mmol/L (136-145)
[2022-02-04 16:28] LABS: ANION GAP 13 MMOL/L (8-16); CALCIUM 9.3 mg/dL (8.5-10.1); CO2 26 mmol/L (21-32); GLUCOSE,RANDOM 184 mg/dL (74-106)
[2022-02-04 16:29] LABS: ALBUMIN 2.6 g/dl (3.4-5.0); MAGNESIUM 2.7 mg/dL (1.8-2.4)
[2022-02-04 16:32] LABS: CREATININE 3.7 mg/dL (0.55-1.3); PHOSPHOROUS 4.6 mg/dL (2.5-4.9); SGOT/AST 28 U/L (15-37); SGPT/ALT 34 U/L (13-61)
[2022-02-04 16:33] LABS: TOT PROT 6.6 g/dl (6.4-8.2)
[2022-02-04 16:34] LABS: ALK PHOS 185 U/L (45-117)
[2022-02-04 16:39] LABS: BLOOD UREA NITROGEN 117.9 mg/dL (7-18)
[2022-02-04 16:50] LABS: EPI CELLS 4 /uL (0-25.1); HYALINE CASTS 2 /uL (0-3.1); URINE APPEARANCE CLEAR; URINE BACTERIA 31 /uL (0-1359); URINE BILIRUBIN NEGATIVE (NEGATIVE); URINE COLOR YELLOW; URINE GLUCOSE (UA) NEGATIVE (NEGATIVE); URINE KETONE NEGATIVE (NEGATIVE); URINE LEUK ESTERASE NEGATIVE (NEGATIVE); URINE NITRITE NEGATIVE (NEGATIVE); URINE PROTEIN 1+ (NEGATIVE); URINE RBC 14 /uL (0-23.9); URINE UROBILINOGEN 0.2 mg/dL (0.2-1.0); URINE WBC 3 /uL (0-25.8)
[2022-02-04 16:52] LABS: URINE UREA NITROGEN 895 mg/dL (350-1000)
[2022-02-04] MEDS: INSULIN (LEVEMIR) 100 UNITS/ML UNITS SQ SCH (22:42)
[2022-02-04] MEDS: ATORVASTATIN CA 20 MG TABLET (FP) PO SCH (22:42)
[2022-02-05] MEDS: INSULIN SLIDING SCALE (NOVOLOG) 1 VIAL SQ SCH ×4 (06:27→22:16)
[2022-02-05] MEDS: DOCUSATE SODIUM 100 MG CAPSULE (FP) PO SCH ×3 (06:28→22:15)
[2022-02-05] MEDS: ASPIRIN 81 MG CHEWABLE TABLETS PO SCH (09:31)
[2022-02-05] MEDS: POLYETHYLENE GLYCOL (HEALTHYLAX) 3350 17 GM PACKET PO SCH ×2 (09:31→22:15)
[2022-02-05] MEDS: APIXABAN 2.5 MG TABLET PO SCH ×2 (09:31→22:15)
[2022-02-05] MEDS: FLUTICASONE PROP 0.05% 16 GM NASAL SPRAY NS SCH (09:31)
[2022-02-05] MEDS: AMIODARONE HCL 200 MG TABLET PO SCH (09:31)
[2022-02-05 10:47] LABS: BASO % 0.3 % (0-2.0); EOS % 1.7 % (0-4.5); HEMATOCRIT 42.1 % (35.4-49); HEMOGLOBIN 13.1 GM/dL (11.7-16.9); MCHC 31.1 g/dl (32.0-35.9); MEAN CELL VOLUME 80.5 fl (80-96); MEAN PLT VOLUME 8.6 fl (7.5-11.1); MONO % 13.2 % (3.8-10.2); NEUT % 73.8 % (42.8-82.8); PLATELET COUNT 271 10^3/uL (134-434); RBC 5.23 M/mm3 (4.00-5.60); RDW 17.2 % (11.9-15.9); WHITE BLOOD COUNT 5.7 K/mm3 (4.0-10.0)
[2022-02-05] MEDS ORDERED: INSULIN (NOVOLOG) ASPART 100 UNITS/ML 10ML VIAL ONE ×2 (11:12→16:21)
[2022-02-05 11:13] LABS: CALCIUM 8.9 mg/dL (8.5-10.1)
[2022-02-05 11:14] LABS: ALBUMIN 2.5 g/dl (3.4-5.0); BLOOD UREA NITROGEN 102.2 mg/dL (7-18); MAGNESIUM 2.7 mg/dL (1.8-2.4)
[2022-02-05 11:17] LABS: BILIRUBIN,TOTAL 0.8 mg/dL (0.2-1); CREATININE 3.2 mg/dL (0.55-1.3); PHOSPHOROUS 3.7 mg/dL (2.5-4.9); TOT PROT 6.5 g/dl (6.4-8.2)
[2022-02-05] MEDS: ATORVASTATIN CA 20 MG TABLET (FP) PO SCH (22:15)
[2022-02-05] MEDS: INSULIN (LEVEMIR) 100 UNITS/ML UNITS SQ SCH (22:15)
[2022-02-06 06:16] VITALS: TEMP 98.4
[2022-02-06] MEDS: DOCUSATE SODIUM 100 MG CAPSULE (FP) PO SCH ×2 (06:41→13:40)
[2022-02-06] MEDS: INSULIN SLIDING SCALE (NOVOLOG) 1 VIAL SQ SCH ×2 (06:41→11:42)
[2022-02-06] MEDS: APIXABAN 2.5 MG TABLET PO SCH (10:21)
[2022-02-06] MEDS: ASPIRIN 81 MG CHEWABLE TABLETS PO SCH (10:21)
[2022-02-06] MEDS: AMIODARONE HCL 200 MG TABLET PO SCH (10:21)
[2022-02-06] MEDS: POLYETHYLENE GLYCOL (HEALTHYLAX) 3350 17 GM PACKET PO SCH (10:21)
[2022-02-06] MEDS: FLUTICASONE PROP 0.05% 16 GM NASAL SPRAY NS SCH (11:33)
[2022-02-06 11:46] LABS: BASO % 0.6 % (0-2.0); EOS % 1.9 % (0-4.5); HEMATOCRIT 45.6 % (35.4-49); MCH 25.1 pg (25.7-33.7); MCHC 30.7 g/dl (32.0-35.9); MEAN CELL VOLUME 81.9 fl (80-96); MEAN PLT VOLUME 8.4 fl (7.5-11.1); MONO % 13.2 % (3.8-10.2); NEUT % 66.3 % (42.8-82.8); PLATELET COUNT 242 10^3/uL (134-434); RBC 5.56 M/mm3 (4.00-5.60); RDW 17.4 % (11.9-15.9); WHITE BLOOD COUNT 4.7 K/mm3 (4.0-10.0)
[2022-02-06 12:17] LABS: CHLORIDE 106 mmol/L (98-107); SODIUM 142 mmol/L (136-145)
[2022-02-06 12:32] LABS: ALBUMIN 2.6 g/dl (3.4-5.0); ALK PHOS 178 U/L (45-117); ANION GAP 10 MMOL/L (8-16); CALCIUM 8.8 mg/dL (8.5-10.1); CO2 27 mmol/L (21-32); CREATININE 3.1 mg/dL (0.55-1.3); GLUCOSE,RANDOM 105 mg/dL (74-106); MAGNESIUM 2.8 mg/dL (1.8-2.4); PHOSPHOROUS 3.8 mg/dL (2.5-4.9); SGOT/AST 29 U/L (15-37); SGPT/ALT 30 U/L (13-61); TOT PROT 6.9 g/dl (6.4-8.2)
[2022-02-06 12:34] LABS: BLOOD UREA NITROGEN 108.2 mg/dL (7-18)
[2022-02-06 12:57] VITALS: RESP 16
[2022-02-10 02:21] VITALS: BP 101/82; PULSE 86
== END 2022-02-06 16:53 | disposition home or self-care (01) | DRG 291 ==
LOC: JER 08:57 → JERBED 11:47 → J8W 01-27 22:54 → J6S 01-29 15:24
PROVIDERS: ADMIT Internal Medicine; ATTEND Internal Medicine
DX: I13.0 Hypertensive heart and chronic kidney disease with heart failure and stage 1 through stage 4 chronic kidney disease, or unspecified chronic kidney disease (principal); I50.43 Acute on chronic combined systolic (congestive) and diastolic (congestive) heart failure; I48.20 Chronic atrial fibrillation, unspecified; N17.9 Acute kidney failure, unspecified; N18.30 Chronic kidney disease, stage 3 unspecified; F03.90 Unspecified dementia, unspecified severity, without behavioral disturbance, psychotic disturbance, mood disturbance, and anxiety; E11.22 Type 2 diabetes mellitus with diabetic chronic kidney disease; E87.5 Hyperkalemia; E87.70 Fluid overload, unspecified; Z95.5 Presence of coronary angioplasty implant and graft
CPT/HCPCS: 0241U-QW; 36415; 71045-TC-FY; 71046-TC-FY; 76775-TC; 80048; 80053; 80061; 80162; 81003; 82436; 82570; 82962; 83036; 83735; 83880; 84100; 84133; 84300; 84443; 84484; 84540; 85025; 85027; 85610; 85730; 93005; 93010; 94761; 97116-GP; 97161-GP; 99285-25